=== PATIENT | female | born 1955 | race Caucasian/White ===

== ENCOUNTER 2023-06-19 19:04 | Inpatient (IN) | payer OTHER, SELFPAY ==
--- NOTE | 2023-06-19 | ECG_ITS ---
Test Reason : SVT Blood Pressure : / mmHG Vent. Rate : 090 BPM Atrial Rate : 084 BPM P-R Int : 128 ms QRS Dur : 080 ms QT Int : 406 ms P-R-T Axes : 000 015 073 degrees QTc Int : 496 ms Normal sinus rhythm with PAC's Premature ventricular complexes Prolonged QT Abnormal ECG When compared with ECG of 19-JUN-2023 19:48, rhythm change Vent. rate has decreased BY 44 BPM Referred By: Dk Rogel Electronically Signed By:RAVI CHRISTIAN
--- NOTE | ~2023-06-19 | XR_ITS ---
XR/XR chest 1V IMPRESSION: No evidence of acute disease. EXAMINATION: PORTABLE CHEST 1 VIEW CLINICAL INFORMATION: cough, subjective fevers. COMPARISON: 09/15/2022 CT scan. TECHNIQUE: Portable frontal view of the chest was obtained. FINDINGS: The lungs are well expanded. No focal infiltrate, effusion, edema, or pneumothorax. Cardiac and mediastinal silhouettes are within normal limits for size. Right reverse total shoulder arthroplasty noted. No acute bony abnormality seen.
[2023-06-19 19:34] VITALS: PULSE 88; RESP 20; TEMP 36.9; O2SAT 96; BMI 21.5
--- NOTE | 2023-06-19 19:34 | ED.GENADULT ---
HPI - General Adult General Chief complaint: Dyspnea Stated complaint: SOB, heart racing Time Seen by Provider: 06/19/23 20:13 History of Present Illness HPI narrative: The patient is a 68-year-old woman ED who reports a history of a tachydysrhythmia syndrome. She says she takes diltiazem. Her primary lamination operator is Dr. Deondre Diallo at [facility]. She also has an bottle machine operator, Dr. Akanksha Lima. The patient has not felt well for the last 3 days. She says that she woke up on June 17 feeling unwell in the morning. She says that she had a sore throat and felt run down. She says that she has continued to feel worse and worse each day since then and today was particularly bad. Today she also experienced chest tightness and shortness of breath and she also felt her heart racing in a manner consistent with her previous episodes of SVT. She has had some shortness of breath. She has had cough and nausea and general malaise as well as sore throat, bilateral ear pain, chest tightness, and headache. She came to the emergency room by private vehicle because she felt short of breath. The patient is on fluoxetine, gabapentin, Dyazide, and diltiazem. Related Data Allergies Allergy/AdvReac Type Severity Reaction Status Date / Time codeine [CODEINE] Allergy Unknown NAUSEA & Verified 06/19/23 19:41 VOMITING Codeine Phosphate Allergy Unknown Vomiting Uncoded 06/19/23 19:41 Codeine Sulfate Allergy Unknown vomiting Uncoded 10/26/13 00:00 Review of Systems Review of Systems: Yes all other systems are reviewed and are negative [facility] Social History Social History Advance Directives: No Advance Directives Information Provided: No Physical Exam ED Vital Signs: Vital Signs - 24 hr 06/19/23 19:34 06/19/23 20:03 06/19/23 20:04 Temperature 98.4 F 98.7 F Pulse Rate 88 93 163 H Respiratory Rate 20 26 H Blood Pressure 166/68 H Pulse Oximetry 96 93 89 L Oxygen Delivery Method Room Air Room Air Oxygen Flow Rate 06/19/23 20:20 06/19/23 22:22 Temperature 97.7 F Pulse Rate 91 66 Respiratory Rate 22 H 16 Blood Pressure 131/77 Pulse Oximetry 100 100 Oxygen Delivery Method Nasal Cannula Room Air Nasal Cannula Oxygen Flow Rate 2 2 BMI result Body Mass Index 21.5 Const Other: The patient is awake and alert. Her cheeks are flushed. She looks as if she does not feel very well per HENMT Other: The cheeks are flushed. The pharynx appears normal. Eyes Other: Pupils are round equal, conjunctivae are clear, extraocular movements intact. Neck Other: No adenopathy, no JVD Resp Other: Lungs are clear bilaterally Cardio Other: The patient had an irregular heart rate. She seemed to switch between rhythms. Sometime she had what sounded like a very normal rhythm. Sometime she had a very tachy rhythm. No murmur. GI Other: Abdomen is soft and nontender. Skin Other: Cheeks are flushed. Neuro Other: The patient is awake but seems very tired and fatigued. The voice is very raspy. She does not seem to have any focal neurological deficit but seems quite worn out. Extrem Other: No calf swelling or tenderness. No asymmetry. Course Course Course Narrative: This is a rapid medical exam: Additional HPI, ROS, PE not included below will be deferred to primary provider. Patient is a 68-year-old female with history of SVT presenting to the ED with complaint of shortness of breath, palpitations, nonproductive cough for the past 3 days. Reports grandchildren are sick with similar symptoms. Also complains of sore throat and bilateral ear pain. HR 97 in triage. Plan: viral swabs, strep swab, cxr, ekg Medications Administered Discontinued Medications Generic Name Dose Route Start Last Admin Trade Name Freq PRN Reason Stop Dose Admin Acetaminophen 975 mg 06/19/23 20:44 06/19/23 21:29 Acetaminophen 325 Mg Tablet PO 06/19/23 20:45 975 mg ONCE ONE Administration Diltiazem HCl 15 mg 06/19/23 20:16 06/19/23 20:25 Diltiazem Hcl 50 Mg/10 Ml Vial IVPUSH 06/19/23 20:17 15 mg STAT STA Administration Sodium Chloride 1,000 mls @ 999 mls/hr 06/19/23 20:30 06/19/23 21:48 Ns IV 06/19/23 21:30 Infused .Q1H1M JACLYN Infusion Potassium Chloride/Sodium Chloride 40 meq in 1,000 mls @ 250 mls/hr 06/19/23 20:45 06/19/23 21:56 Kcl 40 Meq In 0.9 % Sodium Chl IV 06/20/23 00:44 250 mls/hr .Q4H JACLYN Administration Ketorolac Tromethamine 10 mg 06/19/23 20:44 06/19/23 21:15 Ketorolac Tromethamine 15 Mg/Ml Vial IVPUSH 06/19/23 20:45 10 mg ONCE ONE Administration Potassium Chloride 40 meq 06/19/23 20:46 06/19/23 21:30 Potassium Chloride Er 10 Meq Tablet.Er PO 06/19/23 20:47 40 meq ONCE ONE Administration Medical Decision Making Medical Decision Making MDM Narrative: Patient is a 68-year-old woman with a history of SVT who is on diltiazem. She started to feel unwell 2 days ago on the morning of June 17. She has been feeling progressively more ill since then. She has severe sense of sore throat and difficulty swallowing. She has chest pressure and shortness of breath. She has been aware of her heart beating very fast consistent with previous episodes of SVT. She feels completely miserable. In the emergency room the patient had very labile heart rates. She seemed to vary between a sinus rhythm in the 80s or 90s and a narrow complex tachycardia up to 160 or 170. She was going in and out of this tachydysrhythmia. Patient was given daily times am and IV fluids. She is swab for viruses and has tested positive for influenza A. Other labs include a potassium quite low at 2.7 and the sodium at 127. She was not hypotensive. Her troponin is negative. ProBNP is normal. She also has a mild transaminitis with an AST of 143 and an ALT of 131. I suspect this is part of her flu syndrome. Given how labile her heart rate has been and had generally ill she seems and given her hypokalemia I think hospitalization is reasonable. Lab Data 06/19/23 20:08 06/19/23 20:08 Labs: Lab Results 06/19/23 06/19/23 Range/Units 20:04 20:08 WBC 7.3 (4.8-10.8) X10*3/uL RBC 4.46 (4.20-5.50) X10*6/uL Hgb 14.1 (12.0-16.0) g/dl Hct 39.9 (37.0-47.0) % MCV 89.5 (80.0-98.0) fL MCH 31.6 (27.0-33.0) pg MCHC 35.3 H (31.0-35.0) g/dl RDW 13.8 (11.0-16.0) % Plt Count 212 (160-400) X10*3/uL MPV 8.5 L (9.4-12.3) fL Immature Gran % (Auto) 0.3 (0.0-0.4) % Neut % (Auto) 61.6 (45-73) % Lymph % (Auto) 29.2 (20-40) % [place] % (Auto) 8.3 (2-11) % Eos % (Auto) 0.3 (0-4) % Baso % (Auto) 0.3 (0-2) % Lymph # (Auto) 2.1 (1.2-4.9) X10*3/uL [place] # (Auto) 0.6 (0.1-1.2) X10*3/uL Eos # (Auto) 0.0 (0.0-0.4) X10*3/uL Baso # (Auto) 0.0 (0.0-0.2) X10*3/uL Abs Immat Gran (auto) 0.02 (0.00-0.03) X10*3/uL Absolute Neuts (auto) 4.5 (2.0-8.3) x10*3/uL Absolute Nucleated RBC 0.000 (0.0-0.012) X10*3/uL Nucleated RBC % (auto) 0.0 (0.0-0.2) /100WBC Sodium 127 L (135-145) mmol/L Potassium 2.7 L (3.3-5.1) mmol/L Chloride 94 L (96-108) mmol/L Carbon Dioxide 19 L (22-29) mmol/L Anion Gap 17 (12-20) BUN 12 (9-16) mg/dL Creatinine 0.77 (0.5-1.4) mg/dL Estim Creat Clear Calc 59.5 Estimated GFR > 60 Random Glucose 106 (60-115) mg/dL Calcium 9.4 (8.4-10.2) mg/dL Total Bilirubin 0.5 (0.0-1.0) mg/dL AST 143 H (5-31) U/L ALT 131 H (0-31) U/L Alkaline Phosphatase 62 (39-117) U/L Troponin I High Sens 7.7 (<3.5-17.0) ng/L C-Reactive Protein 3.29 H (< or = 0.50) mg/dL B-Natriuretic Peptide 75 (<100) pg/mL Total Protein 8.3 H (6.5-8.0) g/dL Albumin 4.4 (3.5-5.0) g/dL Influenza Type A (PCR) POSITIVE A (Negative) Influenza Type B (PCR) NEGATIVE (Negative) RSV RNA Qual (PCR) NEGATIVE (Negative) SARS-CoV-2 RNA (RT-PCR) NEGATIVE (Negative) S. pyogenes GrpA EDMOND Negative (Negative) Independent Interpretation I performed an independent interpretation of an: EKG Interpretation: EKG at 19:48 shows to rhythms in the space of the EKG. One rhythm is a sinus rhythm at about 90 beats per minute. There is a 2nd section which has a narrow complex tachycardia which could be atrial fibrillation or SVT. Discharge Plan Discharge Clinical Impression: Influenza A, Tachyarrhythmia, Acute hypokalemia Patient Disposition: Admitted As Inpatient
--- NOTE | 2023-06-19 19:36 | ECG_ITS ---
Test Reason : SOB Blood Pressure : / mmHG Vent. Rate : 134 BPM Atrial Rate : 000 BPM P-R Int : 000 ms QRS Dur : 078 ms QT Int : 304 ms P-R-T Axes : 000 008 104 degrees QTc Int : 453 ms Normal sinus rhythm in first part of EKG Suspect atrial tachycardia in second part of EKG. Less likely flutter. Minimal voltage criteria for LVH, may be normal variant ( [place] product ) Nonspecific ST and T wave abnormality Abnormal ECG When compared with ECG of 14-OCT-2013 19:59, Rhtyhm change Vent. rate has increased BY 56 BPM Referred By: Romina Ness Electronically Signed By:RAVI CHRISTIAN
[2023-06-19 20:03] VITALS: BP 166/68; PULSE 93; RESP 26; TEMP 37.1; O2SAT 93
[2023-06-19 20:04] VITALS: PULSE 163; O2SAT 89
[2023-06-19 20:12] LABS: MANUAL DIFF FLAG NO
[2023-06-19 20:13] LABS: Basophils Percent Auto 0.3 % (0-2); Eosinophils Percent Auto 0.3 % (0-4); Hematocrit 39.9 % (37.0-47.0); Hemoglobin 14.1 g/dl (12.0-16.0); Imm Gran Abs Auto 0.02 X10*3/uL (0.00-0.03); Imm Gran Pct Auto 0.3 % (0.0-0.4); Lymphocytes Absolute Auto 2.1 X10*3/uL (1.2-4.9); Lymphocytes Percent Auto 29.2 % (20-40); Mean Corpuscular HGB Conc 35.3 g/dl (31.0-35.0); Mean Corpuscular Hemoglobin 31.6 pg (27.0-33.0); Mean Corpuscular Volume 89.5 fL (80.0-98.0); Mean Platelet Volume 8.5 fL (9.4-12.3); Monocytes Absolute Auto 0.6 X10*3/uL (0.1-1.2); Monocytes Percent Auto 8.3 % (2-11); Neutrophils Absolute Auto 4.5 x10*3/uL (2.0-8.3); Neutrophils Percent Auto 61.6 % (45-73); Platelet Count 212 X10*3/uL (160-400); Red Blood Count 4.46 X10*6/uL (4.20-5.50); Red Cell Distribution Width 13.8 % (11.0-16.0); White Blood Count 7.3 X10*3/uL (4.8-10.8)
[2023-06-19 20:18] LABS: IDNOW Serial# 6674DD1D; Strep A Nucleic Acid Negative (Negative)
[2023-06-19 20:20] VITALS: PULSE 91; RESP 22; O2SAT 100
[2023-06-19] MEDS: dilTIAZem HCL 50 MG/10 ML VIAL 15 MG IVPUSH (20:25)
[2023-06-19] MEDS: 0.9 % Sodium Chloride 1,000 ML 999 ML IV (20:25)
[2023-06-19 20:38] LABS: Alanine Aminotransferase 131 U/L (0-31); Albumin Level 4.4 g/dL (3.5-5.0); Alkaline Phosphatase 62 U/L (39-117); Anion Gap 17 (12-20); Aspartate Amino Transferase 143 U/L (5-31); Bilirubin Total 0.5 mg/dL (0.0-1.0); Blood Urea Nitrogen 12 mg/dL (9-16); Calcium 9.4 mg/dL (8.4-10.2); Carbon Dioxide 19 mmol/L (22-29); Chloride 94 mmol/L (96-108); Creatinine Clr Calc Pharmacy 59.5; Estimated Glomerular Filt Rate > 60; Glucose Random 106 mg/dL (60-115); Potassium 2.7 mmol/L (3.3-5.1); Sodium 127 mmol/L (135-145); Total Protein 8.3 g/dL (6.5-8.0); Troponin-I High Sensitivity 7.7 ng/L (<3.5-17.0)
[2023-06-19 20:40] LABS: C Reactive Protein 3.29 mg/dL (< or = 0.50)
[2023-06-19 20:47] LABS: Influenza A PCR POSITIVE (Negative); Influenza B PCR NEGATIVE (Negative); Resp Syncy Virus RNA Qual PCR NEGATIVE (Negative); SARS COV2 PCR INHOUSE NEGATIVE (Negative)
[2023-06-19] MEDS: Ketorolac Tromethamine 15 MG/ML VIAL 10 MG IVPUSH (21:15)
[2023-06-19] MEDS: Acetaminophen 325 MG TABLET 975 MG PO (21:29)
[2023-06-19] MEDS: Potassium Chloride ER 10 MEQ TABLET.ER 40 MEQ PO (21:30)
[2023-06-19] MEDS: KCl 40 mEq in 0.9 % Sodium Chl 40 MEQ/1,000 ML IV.SOLN 250 MEQ IV (21:56)
[2023-06-19 22:06] LABS: B Type Natriuretic Peptide 75 pg/mL (<100)
[2023-06-19 22:22] VITALS: BP 131/77; PULSE 66; RESP 16; TEMP 36.5; O2SAT 100
--- NOTE | 2023-06-19 23:56 | P.HPHOSP_ITS ---
History of Present Illness Date of Service: 06/19/23 Attending physician on admission: Keyur Kuhn Chief Complaint: Shortness of breath x 3 days Patient is a 68 year old white female with PMH of tachydysrhythmia syndrome (on Cardizem) presents to the emergency room complaining of feeling unwell with chest pain, light headedness, shortness of breath, nausea, headaches, general malaise, throat and ear pain for about 4 days now. She admits to exposure to her sick grandchildren over the holiday. She has chronic diarrhea at baseline (due to underlying collagenous colitis) which is unchanged. She also states that she has not slept in 3 days since she felt unwell. Initial work up done in the emergency room was notable for a positive Influenza A PCR test, hypokalemia, hypomagnesemia and elevated liver enzymes (AST 143 and ALT 131). She was also found to be in atrial fibrillation with RVR at 134 bpm on EKG. She has no history of atrial fibrillations. During her ER stay, she had She is oxygenating well at 100% on room air and her big complain at this time is that she feels very fatigued. Review of Systems 2 Review of Systems: Yes all other systems are reviewed and are negative [facility] Medical History (Updated 06/20/23 @ 07:41 by Keyur Kuhn MD) Collagenous colitis Tachyarrhythmia Functional capacity: independent ambulation Patient : No Pertinent family history: Reviewed with the patient and not pertinent to current admission. Social History Household Members: None Housing: House Do you presently have visiting nurse or other home services: No Patient Tobacco Use Status: Never used Tobacco Smoked in Last 30 Days: No e-Cigarette/Vaping Use: Never Used Patient Interested in Nicotine Replacement: No Patient Given Instructions on How to Stop Smoking: No Second Hand Smoke Exposure: No Use of substances other than those prescribed or required for medical reasons: No Currently Displaying Signs/Symptoms of Drug Intoxication Withdrawal: No Any prior treatment program specific to substance use: No Have you been hit, kicked, punched, or otherwise hurt by someone within the past year? If so, by whom?: No Do you feel safe in your current relationship?: No Current Relationship Is there a partner from a previous relationship who is making you feel unsafe now?: No Are you made to feel afraid or neglected: Yes Advance Directives: No Advance Directives Information Provided: No Do you have thoughts of harming others: None Do you have a plan to hurt others: No Plan Recently lost weight without trying: No Eating poorly because of decreased appetite: No Nutrition Risks: No Nutritional Risk Patient : No : No Poor oral hygiene: No Meds Allergies Allergy/AdvReac Type Severity Reaction Status Date / Time codeine [CODEINE] Allergy Unknown NAUSEA & Verified 06/19/23 19:41 VOMITING Codeine Phosphate Allergy Unknown Vomiting Uncoded 06/19/23 19:41 Codeine Sulfate Allergy Unknown vomiting Uncoded 10/26/13 00:00 Home Medications Medication Instructions Recorded Confirmed Last Taken Type bimatoprost 0.03 % drops with 1 drp topical BEDTIME 06/20/23 Unknown History applicator, eyelash base budesonide 3 mg 9 mg PO QAM 06/20/23 Unknown History capsule,delayed,extended release diltiazem HCl 120 mg 120 mg PO DAILY 06/20/23 06/20/23 Unknown History capsule,extended release 24 hr diphenoxylate-atropine 2.5 2 tab PO QID 06/20/23 Unknown History mg-0.025 mg tablet fluoxetine 20 mg capsule 20 mg PO DAILY 06/20/23 06/20/23 Unknown History gabapentin 300 mg capsule 300 mg PO TID 06/20/23 Unknown History hyoscyamine sulfate 0.125 mg tablet 0.125 mg PO 5XD 06/20/23 06/20/23 Unknown History cekjuu-tbmvlhmn-aczleig 1 cap PO DAILY PRN SNACKS 06/20/23 Unknown History 24,000-76,000-120,000 unit capsule,delayed rel (Creon) zscdsm-wxwkdkhl-lcghenz 2 cap PO TID 06/20/23 Unknown History 24,000-76,000-120,000 unit capsule,delayed rel (Creon) kcgdvo-evguefse-thtqfkm 2 cap PO QID 06/20/23 Unknown History 36,000-114,000-180,000 unit capsule,delay rel (Creon) risedronate 150 mg tablet 150 mg PO QMONTH 06/20/23 06/20/23 Unknown History triamterene 37.5 1 cap PO DAILY 06/20/23 Unknown History mg-hydrochlorothiazide 25 mg capsule Physical Exam 2 Vital Signs and Narrative: Vital Signs: Last Vital Signs Temp 97.7 F 06/19/23 22:22 Pulse 66 06/19/23 22:22 Resp 16 06/19/23 22:22 BP 131/77 06/19/23 22:22 Pulse Ox 100 06/19/23 22:22 O2 Del Method Room Air, Nasal C annula 06/19/23 22:22 O2 Flow Rate 2 06/19/23 22:22 BMI result Body Mass Index 21.5 General: Well nourished but ill appearing female in bed. Awake, alert and oriented x 4. No apparent distress Eyes: No pallor or jaundice. PERRLA, EOMI HENT: Dry oral mucus membranes. No oropharyngeal lesions. Neck: Supple. No cervical adenopathy. No JVD Cardiovascular: Regular rate and rhythm. Normal heart sounds. No murmurs, rubs or gallops. No JVD. No peripheral edema. Respiratory: Normal respiratory effort with no accessory muscle use. CTAB. Gastrointestinal: Abdomen is soft, non-tender, non-distended. NABS. No hepatosplenomegaly Extremities: No edema. No calf tenderness. Good peripheral pulses Skin: Warm/Dry. No rashes. No mottling. Capillary refill is < 2 seconds Neurological: AAOx4. Intact speech & cognition. Normal gait & balance. CN II - XII grossly intact but not individually tested. No motor or sensory deficits Hematologic: No bleeding. No ecchymosis. No swollen or tender lymph nodes. Psychiatric: Cooperative. Appropriate mood and affect. Results Labs 06/20/23 04:56 06/20/23 04:56 Labs: Laboratory Results - last 24 hr 06/19/23 06/19/23 20:04 20:08 MCV 89.5 MCH 31.6 MCHC 35.3 H RDW 13.8 Plt Count 212 MPV 8.5 L Immature Gran % (Auto) 0.3 Neut % (Auto) 61.6 Lymph % (Auto) 29.2 [place] % (Auto) 8.3 Eos % (Auto) 0.3 Baso % (Auto) 0.3 Lymph # (Auto) 2.1 [place] # (Auto) 0.6 Eos # (Auto) 0.0 Baso # (Auto) 0.0 Abs Immat Gran (auto) 0.02 Absolute Neuts (auto) 4.5 Absolute Nucleated RBC 0.000 Nucleated RBC % (auto) 0.0 Anion Gap 17 Estim Creat Clear Calc 59.5 Estimated GFR > 60 Random Glucose 106 Calcium 9.4 Total Bilirubin 0.5 AST 143 H ALT 131 H Alkaline Phosphatase 62 C-Reactive Protein 3.29 H B-Natriuretic Peptide 75 Total Protein 8.3 H Albumin 4.4 Influenza Type A (PCR) POSITIVE A Influenza Type B (PCR) NEGATIVE RSV RNA Qual (PCR) NEGATIVE SARS-CoV-2 RNA (RT-PCR) NEGATIVE S. pyogenes GrpA EDMOND Negative ECG ECG interpretation date: 06/20/23 ECG interpretation time: 07:38 Prior ECG tracings: available for review Interpretation: 19:48 => Atrial fibrillation at 134 bpm with non-specific St & T-wave abnormality. 20:33 => NSR at 90 bpm. No acute ischemci changes Imaging Radiologist's Impressions: Impressions Chest X-Ray 06/19/23 20:29 IMPRESSION: No evidence of acute disease. Assessment and Plan (1) Influenza A: Status: Acute (2) Acute hypokalemia: Status: Acute (3) Atrial fibrillation with rapid ventricular response: Status: Acute (4) Hypomagnesemia: Status: Acute (5) Elevated liver enzymes: Status: Acute (6) Asthenia: Status: Acute Plan 68 year old white female with PMH of tachydysrhythmia syndrome here with: 1. Influenza A - start on Tamiflu 2. Atrial fibrillation with RVR - new and transient - has underlying h/o SVT for which she is on Diltiazem - scores 2 (age and sex) so may need anticoagulation - get 2 D echo 3. Hypokalemia and hypomagnesemia - replace and recheck in AM 4. Elevated liver enzymes - AST is 143 and ALT 131 - concern for Influenza hepatotoxicity (rare) - consider Hepatitis screen 5. Asthenia - 2/2 Influenza infection - may need STR if she remains week DVT: SC Lovenox CODE STATUS: Full code Admission for at least 2 midnights for management of Influenza A and to monitor her liver enzymes. She may need STR if she remains week. Total time managing care of this patient today: 75 minutes. Quality Stroke Does the patient have a stroke diagnosis?: No VTE Prior VTE?: No VTE Risk Level:: Medical - moderate - high VTE Device Contraindication: Treatment Not Indicated VTE Drug Contraindication: N/A - Med Ordered
[2023-06-20 00:13] VITALS: BP 118/50; PULSE 63; RESP 14; TEMP 37.4; O2SAT 95
[2023-06-20] MEDS: Loperamide HCl 2 MG CAPSULE 4 MG PO (02:46)
[2023-06-20] MEDS: Oseltamivir Phosphate 75 MG CAPSULE PO ×3 (02:46→20:37)
[2023-06-20 05:21] LABS: Hemoglobin 11.4 g/dl (12.0-16.0); Mean Corpuscular HGB Conc 34.5 g/dl (31.0-35.0); Mean Corpuscular Volume 92.7 fL (80.0-98.0); Mean Platelet Volume 8.8 fL (9.4-12.3); Platelet Count 184 X10*3/uL (160-400); Red Blood Count 3.56 X10*6/uL (4.20-5.50); Red Cell Distribution Width 14.1 % (11.0-16.0); White Blood Count 5.2 X10*3/uL (4.8-10.8)
[2023-06-20 05:43] LABS: Anion Gap 10 (12-20); Blood Urea Nitrogen 12 mg/dL (9-16); Calcium 7.7 mg/dL (8.4-10.2); Carbon Dioxide 21 mmol/L (22-29); Chloride 107 mmol/L (96-108); Creatinine Clr Calc Pharmacy 69.4; Estimated Glomerular Filt Rate > 60; Glucose Random 88 mg/dL (60-115); Magnesium 2.1 mg/dL (1.6-2.6); Potassium 4.2 mmol/L (3.3-5.1); Sodium 134 mmol/L (135-145)
[2023-06-20 05:48] VITALS: BP 133/60; PULSE 50; RESP 16; TEMP 36.4; O2SAT 98
[2023-06-20 05:49] VITALS: BMI 23.4
[2023-06-20 06:01] LABS: Thyroid Stimulating Hormone 4.74 uIU/mL (0.32-4.0)
[2023-06-20 07:44] VITALS: BP 135/65; PULSE 50; RESP 18; TEMP 36.6; O2SAT 95
--- NOTE | 2023-06-20 09:02 | PHA.MEDREC ---
Pharmacy Consult ? Medication Reconciliation Pharmacy has completed the medication reconciliation Pt reported all meds. No longer taking budesonide, lomotil, hyoscyamine. Patient currently on 36k Creon.
--- NOTE | 2023-06-20 09:24 | HO.PM.IMPN ---
Subjective Subjective Date of Service: 06/20/23 Interval History: seen and evaluated this morning feels weak and has no energy denies any fever but reports chills having diarrhea Sodium and potassium corrected Review of Systems Review of Systems: Yes all other systems are reviewed and are negative Physical Exam Vital Signs: Vital Signs: Last Vital Signs Temp 97.9 F 06/20/23 07:44 Pulse 50 06/20/23 07:44 Resp 18 06/20/23 07:44 BP 135/65 06/20/23 07:44 Pulse Ox 95 06/20/23 07:44 O2 Del Method Room Air 06/20/23 07:44 O2 Flow Rate 2 06/19/23 22:22 BMI result Body Mass Index 23.4 Const: Other: Constitutional : Awake, interactive, frail, not in distress Neck : Normal inspection, Supple Cardiovascular : RRR, no JVP, no lower extremity edema Respiratory : good bilateral air entry, no crackles, wheezes or rhonchi Gastrointestinal: soft, lax, Normal bowel sounds, Non tender Skin : Warm, Dry Neurological : Alert & oriented x3, No focal deficit Objective Data Active Medications Acetaminophen (Acetaminophen 325 Mg Tablet) 650 mg PO Q6H PRN PRN Reason: Pain, Mild (Pain Scale 1-3) Al Hydroxide/Mg Hydroxide (Magnesium Hydrox/Alum Hydrox 30 Ml Oral.Susp) 30 ml PO Q4H PRN PRN Reason: Heartburn/Nausea Diltiazem HCl (Diltiazem Hcl Cd 120 Mg Cap.Er.Deg) 120 mg PO DAILY [facility]; Protocol Docusate Sodium (Docusate Sodium 100 Mg Capsule) 100 mg PO BID [facility] Enoxaparin Sodium (Enoxaparin Sodium 40 Mg/0.4 Ml Syringe) 40 mg SUBCUT BEDTIME [facility] Last Admin: 06/20/23 02:47 Dose: Not Given Documented By: MIAH Non-Admin Reason: Patient Refused Fluoxetine HCl (Fluoxetine Hcl 20 Mg Capsule) 20 mg PO DAILY [facility] Gabapentin (Gabapentin 100 Mg Capsule) 100 mg PO TID [facility] Lactated Ringer's (Lr) 1,000 mls @ 80 mls/hr IVCONT .[id number] [facility] Loperamide HCl (Loperamide Hcl 2 Mg Capsule) 2 mg PO Q4H PRN PRN Reason: Diarrhea Melatonin (Melatonin 3 Mg Tablet) 6 mg PO BEDTIME PRN PRN Reason: Insomnia Multivitamins/Vitamin C (Multivitamin Tablet) 1 tab PO DAILY JACLYN Non-Formulary Medication (Dnhxlk-Hgqrqswx-Vvapald [Creon]) 2 cap PO TID JACLYN Non-Formulary Medication (Qwkiwl-Oyfmkhpk-Rsasgpt [Creon]) 1 cap PO DAILY PRN PRN Reason: snacks Ondansetron HCl (Ondansetron Hcl 4 Mg/2 Ml Vial) 4 mg IVPUSH Q8H PRN PRN Reason: Nausea and Vomiting Oseltamivir Phosphate (Oseltamivir Phosphate 75 Mg Capsule) 75 mg PO Q12H [facility] Stop: 06/24/23 21:01 Sodium Chloride (0.9 % Sodium Chloride Flush 3 Ml Syringe) 3 ml IVFLUSH QSHIFT [facility] Last Admin: 06/20/23 02:46 Dose: Not Given Documented By: MIAH Non-Admin Reason: IV Running Labs 06/20/23 04:56 06/20/23 04:56 Labs: Laboratory Results - last 24 hr 06/19/23 06/19/23 06/20/23 20:04 20:08 04:56 MCV 89.5 92.7 MCH 31.6 32.0 MCHC 35.3 H 34.5 RDW 13.8 14.1 Plt Count 212 184 MPV 8.5 L 8.8 L Immature Gran % (Auto) 0.3 Neut % (Auto) 61.6 Lymph % (Auto) 29.2 [place] % (Auto) 8.3 Eos % (Auto) 0.3 Baso % (Auto) 0.3 Lymph # (Auto) 2.1 [place] # (Auto) 0.6 Eos # (Auto) 0.0 Baso # (Auto) 0.0 Abs Immat Gran (auto) 0.02 Absolute Neuts (auto) 4.5 Absolute Nucleated RBC 0.000 0.000 Nucleated RBC % (auto) 0.0 0.0 Hold Purple Top Anion Gap 17 10 L Estim Creat Clear Calc 59.5 69.4 Estimated GFR > 60 > 60 Random Glucose 106 88 Calcium 9.4 7.7 L D Magnesium 2.1 Total Bilirubin 0.5 AST 143 H ALT 131 H Alkaline Phosphatase 62 C-Reactive Protein 3.29 H B-Natriuretic Peptide 75 Total Protein 8.3 H Albumin 4.4 TSH 4.74 H Influenza Type A (PCR) POSITIVE A Influenza Type B (PCR) NEGATIVE RSV RNA Qual (PCR) NEGATIVE SARS-CoV-2 RNA (RT-PCR) NEGATIVE S. pyogenes GrpA EDMOND Negative 06/20/23 08:07 MCV MCH MCHC RDW Plt Count MPV Immature Gran % (Auto) Neut % (Auto) Lymph % (Auto) [place] % (Auto) Eos % (Auto) Baso % (Auto) Lymph # (Auto) [place] # (Auto) Eos # (Auto) Baso # (Auto) Abs Immat Gran (auto) Absolute Neuts (auto) Absolute Nucleated RBC Nucleated RBC % (auto) Hold Purple Top SEE NOTE Anion Gap Estim Creat Clear Calc Estimated GFR Random Glucose Calcium Magnesium Total Bilirubin AST ALT Alkaline Phosphatase C-Reactive Protein B-Natriuretic Peptide Total Protein Albumin TSH Influenza Type A (PCR) Influenza Type B (PCR) RSV RNA Qual (PCR) SARS-CoV-2 RNA (RT-PCR) S. pyogenes GrpA EDMOND Assessment and Plan (1) Asthenia: Status: Acute (2) Elevated liver enzymes: Status: Acute (3) Acute hypokalemia: Status: Acute (4) Hypomagnesemia: Status: Acute (5) Influenza A: Status: Acute Plan 68 year old white female with PMH of tachydysrhythmia syndrome here with: 1. Influenza A Continue Tamiflu supportive IVF and cough meds Tylenol and Ibuprofen 2. Tachycardia EKG showing possible Afib rvr vs SVT with extra beats (her known medical problem) Keep on Tele to confirm any suspecion of Afib on Diltiazem Hold on anticoagulation Get 2 D echo 3. Hypokalemia and hypomagnesemia Replaced and Corrected 4. Elevated liver enzymes AST is 143 and ALT 131 concern for Influenza hepatotoxicity (rare) Pending Hepatitis screen 5. Asthenia 2/2 Influenza infection PT eval may need STR if she remains weak DVT: SC Lovenox CODE STATUS: Full code Needs inpateint overnight stay for management of Influenza A and to monitor her liver enzymes. She may need STR placement Quality Stroke Does the patient have a stroke diagnosis?: No VTE Prior VTE?: No VTE Risk Level:: Medical - moderate - high VTE Device Contraindication: Treatment Not Indicated VTE Drug Contraindication: N/A - Med Ordered
[2023-06-20] MEDS: FLUoxetine HCl 20 MG CAPSULE PO (10:49)
[2023-06-20] MEDS: dilTIAZem HCL CD 120 MG CAP.ER.DEG PO (10:49)
[2023-06-20] MEDS: Gabapentin 100 MG CAPSULE PO ×3 (10:49→20:38)
[2023-06-20] MEDS: Acetaminophen 325 MG TABLET 650 MG PO ×3 (10:50→20:38)
[2023-06-20] MEDS: 0.9 % Sodium Chloride Flush 3 ML SYRINGE IVFLUSH ×2 (10:52→16:48)
[2023-06-20] MEDS: Lactated Ringers 1,000 ML 80 ML IVCONT ×2 (11:24→20:43)
[2023-06-20] MEDS: Ibuprofen 200 MG TABLET PO ×2 (12:02→16:47)
[2023-06-20] MEDS: Lipase/Prot/Amylase 24/76/120K 1 CAP CAPSULE.DR 3 CAP PO ×2 (12:02→16:48)
[2023-06-20 15:59] VITALS: BP 119/66; PULSE 54; RESP 18; TEMP 36.6; O2SAT 97
--- NOTE | 2023-06-20 16:10 | MHC.CM.PN ---
CM ATTEMPTED TO SEE PT WHO WAS SLEEPING SOUNDLY AND DID NOT WAKE TO NAME CM WILL REVISIT
[2023-06-20 19:24] VITALS: BP 128/64; PULSE 51; RESP 18; TEMP 36.6; O2SAT 97
[2023-06-20] MEDS: Enoxaparin Sodium 40 MG/0.4 ML SYRINGE SUBCUT (20:35)
[2023-06-20] MEDS: Docusate Sodium 100 MG CAPSULE PO (20:37)
[2023-06-21 04:00] VITALS: BP 135/62; PULSE 52; RESP 18; TEMP 36.6; O2SAT 96
[2023-06-21 05:58] LABS: Anion Gap 12 (12-20); Blood Urea Nitrogen 8 mg/dL (9-16); Calcium 8.1 mg/dL (8.4-10.2); Carbon Dioxide 21 mmol/L (22-29); Chloride 107 mmol/L (96-108); Creatinine Clr Calc Pharmacy 79.1; Estimated Glomerular Filt Rate > 60; Glucose Random 73 mg/dL (60-115); Potassium 3.5 mmol/L (3.3-5.1); Sodium 136 mmol/L (135-145)
[2023-06-21 06:01] LABS: Alanine Aminotransferase 78 U/L (0-31); Albumin Level 3.5 g/dL (3.5-5.0); Alkaline Phosphatase 48 U/L (39-117); Aspartate Amino Transferase 64 U/L (5-31); Bilirubin Direct 0.1 mg/dL (0.0-0.5); Bilirubin Total 0.3 mg/dL (0.0-1.0); Total Protein 6.6 g/dL (6.5-8.0)
[2023-06-21 07:25] VITALS: BP 166/73; PULSE 66; RESP 18; TEMP 36.7; O2SAT 98
[2023-06-21] MEDS: FLUoxetine HCl 20 MG CAPSULE PO (07:43)
[2023-06-21] MEDS: Oseltamivir Phosphate 75 MG CAPSULE PO (07:43)
[2023-06-21] MEDS: Ibuprofen 200 MG TABLET PO ×2 (07:43→11:46)
[2023-06-21] MEDS: Lipase/Prot/Amylase 24/76/120K 1 CAP CAPSULE.DR 3 CAP PO ×2 (07:44→11:46)
[2023-06-21] MEDS: Gabapentin 100 MG CAPSULE PO (07:44)
[2023-06-21] MEDS: Acetaminophen 325 MG TABLET 650 MG PO (07:44)
[2023-06-21] MEDS: dilTIAZem HCL CD 120 MG CAP.ER.DEG PO (07:44)
[2023-06-21] MEDS: Multivitamin TABLET 1 TAB PO (08:02)
--- NOTE | 2023-06-21 10:03 | PM.DS ---
DS: Providers Provider Date of Service: 06/21/23 Date of admission: 06/19/23 23:57 Primary care physician: Ishmael Madrigal MD DS: Diagnosis Discharge Diagnosis (1) Asthenia: Status: Acute (2) Elevated liver enzymes: Status: Acute (3) Acute hypokalemia: Status: Acute (4) Hypomagnesemia: Status: Acute (5) Influenza A: Status: Acute DS: Summary Hospital Course Hospital Course: Admission note HPI Patient is a 68 year old white female with PMH of tachydysrhythmia syndrome (on Cardizem) presents to the emergency room complaining of feeling unwell with chest pain, light headedness, shortness of breath, nausea, headaches, general malaise, throat and ear pain for about 4 days now. She admits to exposure to her sick grandchildren over the holiday. She has chronic diarrhea at baseline (due to underlying collagenous colitis) which is unchanged. She also states that she has not slept in 3 days since she felt unwell. Initial work up done in the emergency room was notable for a positive Influenza A PCR test, hypokalemia, hypomagnesemia and elevated liver enzymes (AST 143 and ALT 131). She was also found to be in atrial fibrillation with RVR at 134 bpm on EKG. She has no history of atrial fibrillations. During her ER stay, she had She is oxygenating well at 100% on room air and her big complain at this time is that she feels very fatigued. Hospital course 1. Influenza A with associated Asthenia Started on Tamiflu and treated with supportive IVF and cough meds along with Tylenol and Ibuprofen with good response. she participated with PT who recommended no need for therapy as she improved and was steady on her feet 2. Tachycardia EKG showing possible Afib rvr vs SVT with extra beats (her known medical problem). She was kept on Tele with no evidence of Afib. Controlled with Diltiazem. 3. Hypokalemia and hypomagnesemia Replaced and Corrected 4. Elevated liver enzymes AST is 143 and ALT 131 on presentation. Trended down during hospital stay. likely related to viral illness. Pending Hepatitis screen at time of discharge. Continue Tamiflu as prescribed Flonase for congestion Tylenol and Advil as needed keep yourself hydrated Time Attestation Discharge coordination time: Greater than 30 minutes Quality: Safe Use of Opioids Does Pt have an Active Cancer Diagnosis on the Problem List?: No Quality: Stroke Does the patient have a stroke diagnosis?: No Physical Exam Vital Signs: Vital Signs: Last Vital Signs Temp 98.1 F 06/21/23 07:25 Pulse 66 06/21/23 07:25 Resp 18 06/21/23 07:25 BP 166/73 H 06/21/23 07:25 Pulse Ox 98 06/21/23 07:25 O2 Del Method Room Air 06/21/23 07:25 O2 Flow Rate 2 06/19/23 22:22 BMI result Body Mass Index 23.4 Const: Other: Constitutional : Awake, interactive, frail, not in distress Neck : Normal inspection, Supple Cardiovascular : RRR, no JVP, no lower extremity edema Respiratory : good bilateral air entry, no crackles, wheezes or rhonchi Gastrointestinal: soft, lax, Normal bowel sounds, Non tender Skin : Warm, Dry Neurological : Alert & oriented x3, No focal deficit DS: Data Data Completed and Pending Labs on day of discharge: Laboratory Results - last 24 hr 06/21/23 05:07 Hold Purple Top SEE NOTE Sodium 136 Potassium 3.5 Chloride 107 Carbon Dioxide 21 L Anion Gap 12 BUN 8 L Creatinine 0.58 Estim Creat Clear Calc 79.1 Estimated GFR > 60 Random Glucose 73 Calcium 8.1 L Total Bilirubin 0.3 Direct Bilirubin 0.1 AST 64 H ALT 78 H Alkaline Phosphatase 48 Total Protein 6.6 Albumin 3.5 Imaging Chest x-ray: Radiologist's impression: ITS Impressions Chest X-Ray 06/19/23 20:29 IMPRESSION: No evidence of acute disease. Discharge Plan Discharge Anticipated Discharge Date/Time: 06/21/23 09:55 Patient Disposition: Home, Self-Care Discharge Diagnosis: Influenza A Electrolytes imbalance Referrals: Ishmael Madrigal MD [Primary Care Provider] - 1 Week Discharge Medications: New benzonatate 100 mg Capsule 100 mg PO TID PRN (Reason: Cough) Qty: 20 0RF oseltamivir [Tamiflu] 75 mg Capsule 75 mg PO Q12H Qty: 6 0RF fluticasone propionate 50 mcg/actuation [place],Suspension 1 spray intranasal BID Qty: 16 0RF Continued triamterene-hydrochlorothiazid 37.5-25 mg capsule 1 cap PO DAILY gabapentin 300 mg capsule 300 mg PO TID bimatoprost 0.03 % drops with applicator 1 drp TOPICAL BEDTIME Rx Instructions: APPLY TO AFFECTED UPPER EYELIDS Creon 36,000-114,000- 180,000 unit capsule,delayed release(DR/EC) 2 cap PO TID diltiazem HCl 120 mg capsule,extended release 24hr 120 mg PO DAILY fluoxetine 20 mg capsule 20 mg PO DAILY risedronate 150 mg tablet 150 mg PO QMONTH multivitamin with iron Tablet 1 tab PO DAILY Creon 36,000-114,000- 180,000 unit capsule,delayed release(DR/EC) 1 cap PO DAILY PRN (Reason: snacks) Discharge Orders: Discharge Order (Routine); Ordered 06/21/23 Ordered By: Nima Parsons Diet: Advance to usual diet Activity on Discharge: As tolerated Stand Alone Forms: Patient Portal Discharge page Care Plan Goals: Read below Health Concerns: Read below Plan of Treatment: Read below Assessment: You were admitted to the hospital for treatment of Influenza A. responded fairly to IV fluids, pain medications and Tamiflu. Continue Tamiflu as prescribed Flonase for congestion Tylenol and Advil as needed keep yourself hydrated
[2023-06-21] MEDS: Butalb/Acetamin/Caff 50/325/40 TABLET 1 TAB PO (10:07)
[2023-06-21] MEDS: Fluticasone Propionate Nasal 16 GM SPRAY 1 SPRAY NOSTRIL-B (11:15)
--- NOTE | 2023-06-21 11:32 | MHC.CM.PN ---
PT REPORTS SHE LIVES ALONE AND IS INDEPENDENT WITH CARE SHE HAS NO SERVICES AND NO DME, SHE WORKS AND DRIVES SHE SAYS SHE HAS A HCP, COPY REQUESTED PCP: BABITA SALEEM PT WILL DC HOME TODAY VIA FAMILY TRANSPORT
[2023-06-22 04:08] LABS: HBS Num1 0.11 mIU/mL (0-7.99); HBsAGNum1 0.33 S/CO (0.00-0.99); Hepatitis A Antibody IgM 0.12 Index (0-0.79); Hepatitis B Core Antibody Nonreactive (Nonreactive); Hepatitis B Surface Antigen Negative (Negative); ~HepC Num1 0.09 S/CO (0.00-0.79); ~Hepatitis A Antibody IgM Nonreactive (Nonreactive); ~Hepatitis B Surface Antibody NONREACTIVE (Nonreactive); ~Hepatitis C Antibody Nonreactive (Nonreactive)
== END 2023-06-21 12:25 | disposition home or self-care (01) | DRG 195 ==
LOC: HO.ED 23:21 → HO.EDOVER 06-20 00:01 → HO.S3 06-20 03:31
PROVIDERS: Registered Nurse Emergency; Admitting Provider Internal Medicine; Emergency Provider Emergency Medicine; PCP Pediatrics; Visit Provider Student in an Organized Health Care Education/Training Program
DX: J10.1 Influenza due to other identified influenza virus with other respiratory manifestations (principal); E87.6 Hypokalemia; I48.91 Unspecified atrial fibrillation; E83.42 Hypomagnesemia; Z20.822 Contact with and (suspected) exposure to COVID-19; Z79.899 Other long term (current) drug therapy
CPT/HCPCS: 0241U; 36415; 71045; 80048; 80053; 80076; 83735; 83880; 84443; 84484; 85025; 85027; 86140; 86704; 86706; 86709; 86803; 87340; 87651; 93005; 97161; 99221; 99285; J1650; J1885; J3480; J7120

== ENCOUNTER → 2023-06-19 19:36 | Outpatient (BNV) | payer OTHER, SELFPAY | PROVIDERS: Admitting Provider Internal Medicine; Emergency Provider Emergency Medicine; PCP Pediatrics; Visit Provider Internal Medicine | DX: I49.1 Atrial premature depolarization (principal); R94.31 Abnormal electrocardiogram [ECG] [EKG]; R00.0 Tachycardia, unspecified | CPT/HCPCS: 93010 ==

== ENCOUNTER → 2023-06-19 23:57 | Outpatient (BNV) | payer OTHER, SELFPAY | PROVIDERS: Admitting Provider Internal Medicine; Emergency Provider Emergency Medicine; PCP Pediatrics; Visit Provider Internal Medicine | DX: R74.8 Abnormal levels of other serum enzymes (principal); E87.6 Hypokalemia; E83.42 Hypomagnesemia; J10.1 Influenza due to other identified influenza virus with other respiratory manifestations; R53.1 Weakness | CPT/HCPCS: 99223; 99233; 99239 ==

== ENCOUNTER 2023-10-11 19:50 | Emergency (ER) | payer OTHER, SELFPAY ==
--- NOTE | ~2023-10-11 | CT_ITS ---
EXAMINATION: CT head/brain wo IV con CLINICAL INFORMATION: head injury COMPARISON: None. TECHNIQUE: Contiguous axial imaging was performed from the skull base to vertex without intravenous contrast. This CT examination was performed using dose optimization techniques as appropriate, variously including the following: * Automated exposure control * Adjustment of mA and/or kV according to patient size (this includes techniques or standardized protocols for targeted exams where dose is matched to indication/reason for exam; i.e. extremities or head) * Use of iterative reconstruction technique DLP: 617 mGy-cm. FINDINGS: There is no evidence of acute intracranial hemorrhage or territorial infarction. Seo to white matter differentiation is well preserved. No abnormal mass effect or midline shift is seen. No extra-axial fluid collections are identified. No hydrocephalus. Proportional prominence of the ventricles and sulcal spaces is consistent with mild volume loss. Patchy periventricular and deep white matter hypoattenuation is consistent with mild small vessel ischemic changes. The cerebellar tonsils are well positioned. 2 skin suzanne seen along the right frontal scalp without associated subgaleal hematoma or underlying calvarial fracture. Bilateral lens extraction. The mastoid air cells and visualized portions of the paranasal sinuses are well aerated. CT/CT head/brain wo IV con IMPRESSION: No acute intracranial pathology.
[2023-10-11 20:09] VITALS: BP 158/72; PULSE 66; RESP 16; TEMP 36.6; O2SAT 99; BMI 24.7
[2023-10-11] MEDS: Acetaminophen 325 MG TABLET 975 MG PO (21:57)
--- NOTE | 2023-10-11 22:53 | ED.HEATRA ---
HPI - Head Injury General Chief complaint: Head Injury Stated complaint: head wound Time Seen by Provider: 10/11/23 22:03 Source: patient and RN notes reviewed Mode of arrival: ambulatory Limitations: no limitations History of Present Illness HPI Narrative: This is a 68-year-old female, with no known medical problems, who presents emergency department with complaints of laceration to the top of her head. 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 She denies hitting her head or loss of consciousness. She states that she has slight tenderness around the wound as well as a slight headache. No blurred vision, lightheadedness, chest pain, shortness of breath abdominal pain, nausea, vomiting or diarrhea. She is not on anticoagulants. No other complaints or concerns at this time. MD Complaint: head injury Place: home Loss of Consciousness: no Location of injury: frontal Severity: moderate Quality: aching Radiation: none Other Injuries: laceration Associated symptoms: denies other symptoms Related Data Home Medications ?Medication ?Instructions ?Recorded ?Confirmed bimatoprost 0.03 % drops with 1 drp topical BEDTIME 06/20/23 06/20/23 applicator, eyelash base diltiazem HCl 120 mg 120 mg PO DAILY 06/20/23 06/20/23 capsule,extended release 24 hr fluoxetine 20 mg capsule 20 mg PO DAILY 06/20/23 06/20/23 gabapentin 300 mg capsule 300 mg PO TID 06/20/23 06/20/23 [id number] 1 cap PO DAILY PRN snacks 06/20/23 06/20/23 36,000-114,000-180,000 unit capsule,delay rel (Creon) [id number] 2 cap PO TID 06/20/23 06/20/23 36,000-114,000-180,000 unit capsule,delay rel (Creon) multivitamin with iron 1 tab PO DAILY 06/20/23 06/20/23 risedronate 150 mg tablet 150 mg PO QMONTH 06/20/23 06/20/23 triamterene 37.5 1 cap PO DAILY 06/20/23 06/20/23 mg-hydrochlorothiazide 25 mg capsule Previous Rx's ?Medication ?Instructions ?Recorded benzonatate 100 mg capsule 100 mg PO TID PRN Cough #20 caps 06/21/23 fluticasone propionate 50 1 spray intranasal BID #16 grams 06/21/23 mcg/actuation nasal spray,suspension oseltamivir 75 mg capsule (Tamiflu) 75 mg PO Q12H #6 caps 06/21/23 Allergies Allergy/AdvReac Type Severity Reaction Status Date / Time codeine [CODEINE] Allergy Unknown NAUSEA & Verified 10/11/23 20:10 VOMITING Codeine Phosphate Allergy Unknown Vomiting Uncoded 10/11/23 20:10 Codeine Sulfate Allergy Unknown vomiting Uncoded 10/11/23 20:10 Review of Systems Review of Systems: Yes all other systems are reviewed and are negative Constitutional: Constitutional: Reports as per [facility] Past Medical History Attestation statement: The following information was validated with the patient. Medical History Collagenous colitis Tachyarrhythmia Social History Social History Household Members: None Housing: House Do you presently have visiting nurse or other home services: No Patient Tobacco Use Status: Never used Tobacco Smoked in Last 30 Days: No e-Cigarette/Vaping Use: Never Used Second Hand Smoke Exposure: No Advance Directives: No Advance Directives Information Provided: No service: No Physical Exam Vital Signs: Vital Signs: Last Vital Signs Temp 98.2 F 10/12/23 00:46 Pulse 63 10/12/23 00:46 Resp 17 10/12/23 00:46 BP 139/65 10/12/23 00:46 Pulse Ox 99 10/12/23 00:46 O2 Del Method Room Air 10/12/23 00:46 BMI result Body Mass Index 24.7 Const: General: cooperative, comfortable and no acute distress Orientation/consciousness: patient oriented x3 Limitations: no limitations HEENT: Head: Yes normal to inspection, Yes normocephalic and Yes atraumatic Ears: hearing grossly normal bilaterally General nose exam: Normal external nose present Face and sinus: Yes normal facial exam Mouth: Normal oral and palatal mucosa present, oropharynx normal and moist mucous membranes Throat: Yes posterior oropharynx normal Eyes: General: appearance normal, both eyes and all related structures Eyelids: Yes eyelids normal Conjunctivae: conjunctivae normal Sclerae: sclerae normal Pupils: Equal, round and reactive pupils present EOM: EOMs intact bilaterally Neck: Neck: Yes normal visual inspection, Yes full ROM and Yes no lymphadenopathy Lymphatic: no lymphadenopathy noted Chest: Chest palpation & inspection: normal inspection of the chest Resp: Effort & Inspection: normal respiratory effort and able to speak in complete sentences Auscultation: clear to auscultation bilaterally, no crackles, no rales, no rhonchi and no wheezes Cardio: Rate: regular rate Rhythm: regular rhythm Heart sounds: S1 normal heart sound present and S2 normal heart sound present GI: Inspection: Yes normal to inspection Skin: Other: 1-1/2 cm partial-thickness laceration noted to the frontal scalp, minimal bleeding noted. General skin exam: no rashes or lesions noted Trauma: no lacerations or abrasions Wounds: no wounds Neuro: General: patient oriented x3 and moves all extremities Cranial nerves: Yes CN's II-XII intact bilaterally and Yes Equal, round and reactive pupils present Gait exam (Neuro): Normal gait present Motor exam (neuro): 5/5 motor strength present throughout and Pronator motor function not present Extrem: General: Yes normal to inspection Right upper extremity: normal to inspection Left upper extremity: normal to inspection Right lower extremity: normal to inspection Left lower extremity: normal to inspection Course Reevaluation(s) Reevaluation #1: CT head unremarkable, wound closed with 2 suzanne. Patient tolerated procedure well. Given wound care instructions and return precautions. She understands and agrees with plan. Patient stable for discharge. Medications Administered Discontinued Medications Generic Name Dose Route Start Last Admin Trade Name Andreaq PRN Reason Stop Dose Admin Acetaminophen 975 mg 10/11/23 21:50 10/11/23 21:57 Acetaminophen 325 Mg Tablet PO 10/11/23 21:51 975 mg ONCE ONE Administration Bacitracin 1 appl 10/12/23 00:01 10/12/23 00:37 Bacitracin Oint 0.9 Gm Packet TOPICAL 10/12/23 00:02 1 appl ONCE ONE Administration Protocol Diphtheria/Tetanus/Acell Pertussis 0.5 ml 10/12/23 00:01 10/12/23 00:36 Diphth,Pertus(Acell),Tet Adult 0.5 Ml Syringe IM 10/12/23 00:02 0.5 ml .ONCE ONE Administration Medical Decision Making Medical Decision Making MDM Narrative: Is a 68-year-old female, with no known medical problems, who presents emergency department complaints of head injury which occurred prior to arrival. Patient states that she has been down to pick an item and struck top of her head on a mailbox. She has a 1.5cm partial-thickness laceration to the top of her head. She is alert and oriented x 4. She has not on anticoagulants. She is neurologically intact without any focal findings. Cervical spine nontender. Wound requiring suture repair. Her tetanus is not up-to-date, therefore will update today. Given age, will obtain CT of the head to rule out any intracranial process. Differential Diagnosis Differential Diagnoses: The differential diagnosis associated with the presentation includes ICH, laceration, contusion, closed head injury Admission/Observation Consideration of admission/observation: Escalation of care including admission/observation considered Escalation of care including admission/observation considered however given workup today not warranted at this time. Radiology Impression Discussion of test interpretation with radiology: I have reviewed the radiologist's reading. Radiologist Impression: FINDINGS: There is no evidence of acute intracranial hemorrhage or territorial infarction. Seo to white matter differentiation is well preserved. No abnormal mass effect or midline shift is seen. No extra-axial fluid collections are identified. No hydrocephalus. Proportional prominence of the ventricles and sulcal spaces is consistent with mild volume loss. Patchy periventricular and deep white matter hypoattenuation is consistent with mild small vessel ischemic changes. The cerebellar tonsils are well positioned. 2 skin suzanne seen along the right frontal scalp without associated subgaleal hematoma or underlying calvarial fracture. Bilateral lens extraction. The mastoid air cells and visualized portions of the paranasal sinuses are well aerated. CT/CT head/brain wo IV con IMPRESSION: No acute intracranial pathology. Procedures Laceration Laceration 1: Site: scalp Size (cm): 1.5 Description: linear Depth: simple, single layer Pre-repair: wound explored, irrigated extensively and deep structures intact Skin layer closed with: other (2 Suzanne) Discharge Plan Discharge Clinical Impression: Laceration of scalp, Head injury Patient Disposition: Home, Self-Care Instructions: Laceration (ED), Staple Care (ED) Additional Instructions: You were seen in the emergency department due to a head injury. We placed 2 suzanne within your scalp. Please have suzanne removed in 7-10 days. Do not submerge wound and hot tubs or baths. If you do get wound wet, pat dry. Do not pick at wound. Keep wound clean and dry. You may use gentle soap and water for cleansing. We updated your tetanus shot in the department today. Your CT of your head did not show any abnormalities. Mental and physical rest over the next several days can help. If any new or worsening symptoms occur including but not limited to severe headache, dizziness, blurred vision, chest pain, shortness of breath, please return for re-evaluation. Prescriptions: No Action triamterene-hydrochlorothiazid 37.5-25 mg capsule 1 cap PO DAILY gabapentin 300 mg capsule 300 mg PO TID bimatoprost 0.03 % drops with applicator 1 drp TOPICAL BEDTIME Rx Instructions: APPLY TO AFFECTED UPPER EYELIDS Creon 36,000-114,000- 180,000 unit capsule,delayed release(DR/EC) 2 cap PO TID diltiazem HCl 120 mg capsule,extended release 24hr 120 mg PO DAILY fluoxetine 20 mg capsule 20 mg PO DAILY risedronate 150 mg tablet 150 mg PO QMONTH multivitamin with iron Tablet 1 tab PO DAILY [place]on 36,000-114,000- 180,000 unit capsule,delayed release(DR/EC) 1 cap PO DAILY PRN (Reason: snacks) benzonatate 100 mg Capsule 100 mg PO TID PRN (Reason: Cough) Qty: 20 0RF oseltamivir [Tamiflu] 75 mg Capsule 75 mg PO Q12H Qty: 6 0RF fluticasone propionate 50 mcg/actuation [place],Suspension 1 spray intranasal BID Qty: 16 0RF Interventions: ED Discharge Assessment Last Done: 10/12/23 00:46 Discharge Date/Time: 10/12/23 00:47 Print Language: Kyrgy[place]
[2023-10-12 00:23] VITALS: BP 139/65; PULSE 63; RESP 17; TEMP 36.8; O2SAT 99
[2023-10-12] MEDS: Diphth,Pertus(ACell),Tet Adult 0.5 ML SYRINGE IM (00:36)
[2023-10-12] MEDS: Bacitracin Oint 0.9 GM PACKET 1 APPL TOPICAL (00:37)
[2023-10-12 00:46] VITALS: BP 139/65; PULSE 63; RESP 17; TEMP 36.8; O2SAT 99
== END 2023-10-12 00:47 | disposition home or self-care (01) ==
PROVIDERS: Emergency Provider Emergency Medicine Emergency Medical Services; PCP Pediatrics
DX: S01.01XA Laceration without foreign body of scalp, initial encounter (principal); S00.91XA Abrasion of unspecified part of head, initial encounter; R51.9 Headache, unspecified; W01.10XA Fall on same level from slipping, tripping and stumbling with subsequent striking against unspecified object, initial encounter; Y93.9 Activity, unspecified; Y92.9 Unspecified place or not applicable; Y99.8 Other external cause status; Z23 Encounter for immunization
CPT/HCPCS: 12031; 70450; 90471; 90715; 99284

== ENCOUNTER 2024-06-22 11:48 | Emergency (ER) | payer MEDICARE, OTHER, SELFPAY ==
--- NOTE | 2024-06-22 11:49 | ECG_ITS ---
Test Reason : CHEST PAIN Blood Pressure : / mmHG Vent. Rate : 072 BPM Atrial Rate : 072 BPM P-R Int : 174 ms QRS Dur : 072 ms QT Int : 404 ms P-R-T Axes : 053 -05 067 degrees QTc Int : 442 ms Normal sinus rhythm Normal ECG When compared with ECG of 19-JUN-2023 20:33, Previous ECG has undetermined rhythm, needs review QT has shortened Referred By: Generic ED Physician Electronically Signed By:AVANI ALMAZAN MD
[2024-06-22 12:04] VITALS: BP 151/78; PULSE 73; RESP 18; TEMP 36.4; O2SAT 100; BMI 24.6
[2024-06-22 12:36] LABS: MANUAL DIFF FLAG NO
[2024-06-22 12:38] LABS: Basophils Percent Auto 0.4 % (0-2); Eosinophils Percent Auto 0.3 % (0-4); Hematocrit 33.7 % (37.0-47.0); Hemoglobin 11.5 g/dl (12.0-16.0); Imm Gran Abs Auto 0.01 X10*3/uL (0.00-0.03); Imm Gran Pct Auto 0.1 % (0.0-0.4); Lymphocytes Absolute Auto 1.4 X10*3/uL (1.2-4.9); Lymphocytes Percent Auto 19.7 % (20-40); Mean Corpuscular HGB Conc 34.1 g/dl (31.0-35.0); Mean Corpuscular Hemoglobin 32.6 pg (27.0-33.0); Mean Corpuscular Volume 95.5 fL (80.0-98.0); Mean Platelet Volume 7.7 fL (9.4-12.3); Monocytes Absolute Auto 0.6 X10*3/uL (0.1-1.2); Monocytes Percent Auto 9.2 % (2-11); Neutrophils Absolute Auto 4.9 x10*3/uL (2.0-8.3); Neutrophils Percent Auto 70.3 % (45-73); Platelet Count 266 X10*3/uL (160-400); Red Blood Count 3.53 X10*6/uL (4.20-5.50); Red Cell Distribution Width 13.2 % (11.0-16.0)
--- NOTE | 2024-06-22 12:41 | ED_ITS ---
HPI - General Adult General Chief complaint: Upper Respiratory Symptoms Stated complaint: chest pain sob Time Seen by Provider: 06/22/24 13:29 Source: patient, RN notes reviewed and old records reviewed Mode of arrival: ambulatory Limitations: no limitations History of Present Illness ED Provider: Lexi PARKS narrative: 69-year-old female presents for evaluation of chest tightness and cough. Her symptoms started 2 days ago. She reports that she was visiting her brother at a [facility] and her brother ended up testing positive for RSV The patient reports a cough but tends to be worse at night. She has no cardiac disease She reports her symptoms are mild but presents to ER due to her chest tightness. Related Data Home Medications ?Medication ?Instructions ?Recorded ?Confirmed bimatoprost 0.03 % drops with 1 drp topical BEDTIME 06/20/23 06/20/23 applicator, eyelash base diltiazem HCl 120 mg 120 mg PO DAILY 06/20/23 06/20/23 capsule,extended release 24 hr fluoxetine 20 mg capsule 20 mg PO DAILY 06/20/23 06/20/23 gabapentin 300 mg capsule 300 mg PO TID 06/20/23 06/20/23 dljfop-isxnqhiq-teslwmd 1 cap PO DAILY PRN snacks 06/20/23 06/20/23 36,000-114,000-180,000 unit capsule,delay rel (Creon) pcdzim-nocmjbtv-uxfwdnp 2 cap PO TID 06/20/23 06/20/23 36,000-114,000-180,000 unit capsule,delay rel (Creon) multivitamin with iron 1 tab PO DAILY 06/20/23 06/20/23 risedronate 150 mg tablet 150 mg PO QMONTH 06/20/23 06/20/23 triamterene 37.5 1 cap PO DAILY 06/20/23 06/20/23 mg-hydrochlorothiazide 25 mg capsule Previous Rx's ?Medication ?Instructions ?Recorded benzonatate 100 mg capsule 100 mg PO TID PRN Cough #20 caps 06/21/23 fluticasone propionate 50 1 spray intranasal BID #16 grams 06/21/23 mcg/actuation nasal spray,suspension oseltamivir 75 mg capsule (Tamiflu) 75 mg PO Q12H #6 caps 06/21/23 benzonatate 200 mg capsule 200 mg PO TID PRN cough #20 caps 06/22/24 Allergies Allergy/AdvReac Type Severity Reaction Status Date / Time codeine [CODEINE] Allergy Unknown NAUSEA & Verified 06/22/24 12:06 VOMITING Codeine Phosphate Allergy Unknown Vomiting Uncoded 10/11/23 20:10 Codeine Sulfate Allergy Unknown vomiting Uncoded 10/11/23 20:10 Review of Systems 2 Constitutional: Constitutional: Denies body ache(s), Denies chills and Denies fever(s) ENT: Denies sore throat Cardiovascular: Cardiovascular: Reports chest pain and Denies dyspnea Respiratory: Respiratory: Reports cough and Denies dyspnea PMFSH Past Medical History Medical History Collagenous colitis Tachyarrhythmia Social History Social History Household Members: None Housing: House Do you presently have visiting nurse or other home services: No Patient Tobacco Use Status: Never used Tobacco e-Cigarette/Vaping Use: Never Used Second Hand Smoke Exposure: No Advance Directives: No Advance Directives Information Provided: No Do you have a plan to hurt others: No Plan service: No Physical Exam ED Vital Signs: Vital Signs - 24 hr 06/22/24 12:04 Temperature 97.5 F Pulse Rate 73 Respiratory Rate 18 Blood Pressure 151/78 H Pulse Oximetry 100 Oxygen Delivery Method Room Air BMI result Body Mass Index 24.6 Const General: healthy appearing, comfortable, no acute distress, alert and awake Nutritional Appearance: well nourished Orientation/consciousness: patient oriented x3 HENMT Head: Yes normocephalic and Yes atraumatic Eyes Eyelids: Yes eyelids normal Conjunctivae: conjunctivae normal Sclerae: sclerae normal Corneas: corneas normal Pupils: Equal, round and reactive pupils present EOM: EOMs intact bilaterally Neck Neck: Yes full ROM Resp Effort & Inspection: normal respiratory effort, able to speak in complete sentences, no audible wheezes and not labored Auscultation: clear to auscultation bilaterally Cardio Rate: regular rate Rhythm: regular rhythm GI Inspection: No distended Palpation (GI): Soft to palpation, not firm, nontender, no guarding and not rigid Skin General skin exam: elasticity normal Neuro General: patient oriented x3 Cranial nerves: Yes Equal, round and reactive pupils present and Yes Bilaterally intact EOM present Cognition (Neuro): normal cognition Extrem Other: Moving all extremities well without any obvious deformities Course Course Course Narrative: RME, this is a rapid medical exam performed by Grant Elliott please refer to primary provider for complete H&P- 69-year-old female presents for evaluation of chest heaviness for the last 2 days. She reports that she was recently exposed to ?RSV. ? She does complain of a nonproductive cough with chills. Her EKG was performed due to the chest heaviness. We will also get a chest x-ray and labs. Medical Decision Making Medical Decision Making [facility] Narrative: 69-year-old female presents for evaluation of chest tightness and cough with a known recent exposure to RSV. Given her age and chest tightness we will get an EKG, labs and viral syndrome. Her lungs are clear to auscultation will hold imaging at this time. The patient's workup is largely unremarkable, she did test positive for RSV. Her sodium was just below normal at 132 which is discussed with her. She reports that she does take a diuretic due leg swelling. I encouraged her to fluid restrict for the next few days. Her EKG is nonischemic and her troponin is negative, she rules out for ACS Differential Diagnosis Differential Diagnoses: The differential diagnosis associated with the presentation includes Chest pain Costochondritis Bronchitis RSV Pneumonia ACS less likely Lab Data MDM Lab Attestation statement: I reviewed the patient's lab results. No leukocytosis. The patient does have a mild normocytic anemia consistent with her labs from a year ago. There is no left shift. Mild hyponatremia to 132 chloride 94 likely related to diuretic disease. Troponin negative, no other chemistry values 06/22/24 12:32 06/22/24 12:32 Labs: Lab Results 06/22/24 Range/Units 12:32 WBC 7.0 (4.8-10.8) X10*3/uL RBC 3.53 L (4.20-5.50) X10*6/uL Hgb 11.5 L (12.0-16.0) g/dl Hct 33.7 L (37.0-47.0) % MCV 95.5 (80.0-98.0) fL MCH 32.6 (27.0-33.0) pg MCHC 34.1 (31.0-35.0) g/dl RDW 13.2 (11.0-16.0) % Plt Count 266 D (160-400) X10*3/uL MPV 7.7 L (9.4-12.3) fL Immature Gran % (Auto) 0.1 (0.0-0.4) % Neut % (Auto) 70.3 (45-73) % Lymph % (Auto) 19.7 L (20-40) % [place] % (Auto) 9.2 (2-11) % Eos % (Auto) 0.3 (0-4) % Baso % (Auto) 0.4 (0-2) % Lymph # (Auto) 1.4 (1.2-4.9) X10*3/uL [place] # (Auto) 0.6 (0.1-1.2) X10*3/uL Eos # (Auto) 0.0 (0.0-0.4) X10*3/uL Baso # (Auto) 0.0 (0.0-0.2) X10*3/uL Abs Immat Gran (auto) 0.01 (0.00-0.03) X10*3/uL Absolute Neuts (auto) 4.9 (2.0-8.3) x10*3/uL Absolute Nucleated RBC 0.000 (0.0-0.012) X10*3/uL Nucleated RBC % (auto) 0.0 (0.0-0.2) /100WBC PT 10.5 L (10.9-12.4) SEC INR 0.9 (0.9-1.1) Sodium 132 L (135-145) mmol/L Potassium 3.8 (3.3-5.1) mmol/L Chloride 94 L (96-108) mmol/L Carbon Dioxide 27 (22-29) mmol/L Anion Gap 15 (12-20) BUN 9 (9-16) mg/dL Creatinine 0.60 (0.5-1.4) mg/dL Estim Creat Clear Calc 75.0 Estimated GFR > 60 Random Glucose 97 (60-115) mg/dL Calcium 9.0 D (8.4-10.2) mg/dL Magnesium 2.1 (1.6-2.6) mg/dL Total Bilirubin 0.3 (0.0-1.0) mg/dL AST 36 H (5-31) U/L ALT 29 (0-31) U/L Alkaline Phosphatase 56 (39-117) U/L Troponin I High Sens < 2.7 D (<3.5-17.0) ng/L Total Protein 7.1 (6.5-8.0) g/dL Albumin 4.2 (3.5-5.0) g/dL Influenza Type A (PCR) NEGATIVE (Negative) Influenza Type B (PCR) NEGATIVE (Negative) RSV RNA Qual (PCR) POSITIVE A (Negative) SARS-CoV-2 RNA (RT-PCR) NEGATIVE (Negative) S. pyogenes GrpA EDMOND Negative (Negative) Independent Interpretation I performed an independent interpretation of an: EKG (Normal sinus rhythm with a rate of [address] segment elevations or depressions.) Discharge Plan Discharge Clinical Impression: RSV infection Patient Disposition: Home, Self-Care Instructions: Respiratory Syncytial Virus (ED) Additional Instructions: You tested positive for RSV. Your sodium was just below normal at 132. I recommend decreasing fluid intake for the next few days and this should improve your sodium. Follow-up with your primary doctor, return for new or worsening symptoms You may use Tessalon Perles as needed for cough Prescriptions: New benzonatate 200 mg capsule 200 mg PO TID PRN (Reason: cough) Qty: 20 0RF No Action triamterene-hydrochlorothiazid 37.5-25 mg capsule 1 cap PO DAILY gabapentin 300 mg capsule 300 mg PO TID bimatoprost 0.03 % drops with applicator 1 drp TOPICAL BEDTIME Rx Instructions: APPLY TO AFFECTED UPPER EYELIDS Creon 36,000-114,000- 180,000 unit capsule,delayed release(DR/EC) 2 cap PO TID diltiazem HCl 120 mg capsule,extended release 24hr 120 mg PO DAILY fluoxetine 20 mg capsule 20 mg PO DAILY risedronate 150 mg tablet 150 mg PO QMONTH multivitamin with iron Tablet 1 tab PO DAILY Creon 36,000-114,000- 180,000 unit capsule,delayed release(DR/EC) 1 cap PO DAILY PRN (Reason: snacks) benzonatate 100 mg Capsule 100 mg PO TID PRN (Reason: Cough) Qty: 20 0RF oseltamivir [Tamiflu] 75 mg Capsule 75 mg PO Q12H Qty: 6 0RF fluticasone propionate 50 mcg/actuation [place],Suspension 1 spray intranasal BID Qty: 16 0RF Print Language: Urdu
[2024-06-22 12:46] LABS: INTERNATIONAL NORM RATIO 0.9 (0.9-1.1); Prothrombin Time 10.5 SEC (10.9-12.4)
[2024-06-22 12:49] LABS: IDNOW Serial# 58CA691E; Strep A Nucleic Acid Negative (Negative)
[2024-06-22 12:53] LABS: Alanine Aminotransferase 29 U/L (0-31); Albumin Level 4.2 g/dL (3.5-5.0); Alkaline Phosphatase 56 U/L (39-117); Anion Gap 15 (12-20); Aspartate Amino Transferase 36 U/L (5-31); Bilirubin Total 0.3 mg/dL (0.0-1.0); Blood Urea Nitrogen 9 mg/dL (9-16); Carbon Dioxide 27 mmol/L (22-29); Chloride 94 mmol/L (96-108); Estimated Glomerular Filt Rate > 60; Glucose Random 97 mg/dL (60-115); Magnesium 2.1 mg/dL (1.6-2.6); Potassium 3.8 mmol/L (3.3-5.1); Sodium 132 mmol/L (135-145); Total Protein 7.1 g/dL (6.5-8.0)
[2024-06-22 13:00] LABS: Troponin-I High Sensitivity < 2.7 ng/L (<3.5-17.0)
[2024-06-22 13:21] LABS: Influenza A PCR NEGATIVE (Negative); Influenza B PCR NEGATIVE (Negative); Resp Syncy Virus RNA Qual PCR POSITIVE (Negative); SARS COV2 PCR INHOUSE NEGATIVE (Negative)
[2024-06-22 13:45] VITALS: BP 151/78; PULSE 73; RESP 18; TEMP 36.4; O2SAT 100
== END 2024-06-22 13:45 | disposition home or self-care (01) ==
PROVIDERS: Emergency Provider Emergency Medicine; PCP Pediatrics
DX: R05.9 Cough, unspecified (principal); B97.4 Respiratory syncytial virus as the cause of diseases classified elsewhere; R07.9 Chest pain, unspecified; Z03.818 Encounter for observation for suspected exposure to other biological agents ruled out
CPT/HCPCS: 0241U; 80053; 83735; 84484; 85025; 85610; 87651; 93005; 99283

== ENCOUNTER → 2024-06-22 11:49 | Outpatient (BNV) | payer MEDICARE, OTHER, SELFPAY | PROVIDERS: Emergency Provider Emergency Medicine; PCP Pediatrics; Visit Provider Internal Medicine Cardiovascular Disease | DX: R07.9 Chest pain, unspecified (principal) | CPT/HCPCS: 93010 ==

== ENCOUNTER 2024-10-20 16:31 | Emergency (ER) | payer MEDICARE, OTHER, SELFPAY ==
--- NOTE | ~2024-10-20 | XR_ITS ---
CLINICAL HISTORY: chest pain 1 view chest x-ray Comparison: None Findings: The lungs are clear. Normal size heart. Status post right shoulder replacement. No acute fracture. There is gaseous distention of bowel within the visualized abdomen. IMPRESSION: 1. No acute cardiopulmonary disease. 2. Gaseous distention of bowel within the visualized abdomen. This document has been electronically signed by: Vida Feldman MD on 10/20/2024 17:18:21
[2024-10-20 16:39] VITALS: BP 165/97; BP 190/110; PULSE 130; PULSE 147; RESP 22; TEMP 36.8; O2SAT 98; O2SAT 99; BMI 23.4
--- NOTE | 2024-10-20 16:45 | ECG_ITS ---
Test Reason : PALPITATION Blood Pressure : */* mmHG Vent. Rate : 88 BPM Atrial Rate : 88 BPM P-R Int : 190 ms QRS Dur : 74 ms QT Int : 366 ms P-R-T Axes : 61 34 65 degrees QTcB Int : 442 ms Normal sinus rhythm Normal ECG When compared with ECG of 22-Jun-2024 12:00, No significant change was found Referred By: Generic ED Physician Electronically Signed By: Neil Zapata
[2024-10-20 17:01] LABS: MANUAL DIFF FLAG NO
[2024-10-20 17:02] LABS: Basophils Percent Auto 0.4 % (0-2); Eosinophils Percent Auto 0.1 % (0-4); Hematocrit 37.3 % (37.0-47.0); Hemoglobin 12.9 g/dl (12.0-16.0); Imm Gran Abs Auto 0.02 X10*3/uL (0.00-0.03); Imm Gran Pct Auto 0.3 % (0.0-0.4); Lymphocytes Absolute Auto 1.7 X10*3/uL (1.2-4.9); Lymphocytes Percent Auto 23.9 % (20-40); Mean Corpuscular HGB Conc 34.6 g/dl (31.0-35.0); Mean Corpuscular Hemoglobin 32.6 pg (27.0-33.0); Mean Corpuscular Volume 94.2 fL (80.0-98.0); Monocytes Absolute Auto 0.8 X10*3/uL (0.1-1.2); Monocytes Percent Auto 11.1 % (2-11); Neutrophils Absolute Auto 4.6 x10*3/uL (2.0-8.3); Neutrophils Percent Auto 64.2 % (45-73); Platelet Count 300 X10*3/uL (160-400); Red Blood Count 3.96 X10*6/uL (4.20-5.50); Red Cell Distribution Width 12.8 % (11.0-16.0); White Blood Count 7.2 X10*3/uL (4.8-10.8)
[2024-10-20 17:09] LABS: INTERNATIONAL NORM RATIO 0.9 (0.9-1.1); Prothrombin Time 10.8 SEC (10.9-12.4)
[2024-10-20 17:14] LABS: Alanine Aminotransferase 34 U/L (0-31); Albumin Level 4.5 g/dL (3.5-5.0); Alkaline Phosphatase 67 U/L (39-117); Anion Gap 15 (12-20); Aspartate Amino Transferase 33 U/L (5-31); Bilirubin Total 0.3 mg/dL (0.0-1.0); Blood Urea Nitrogen 12 mg/dL (9-16); Calcium 9.3 mg/dL (8.4-10.2); Carbon Dioxide 25 mmol/L (22-29); Chloride 93 mmol/L (96-108); Creatinine Clr Calc Pharmacy 62.7; Estimated Glomerular Filt Rate > 60; Glucose Random 125 mg/dL (60-115); Magnesium 2.2 mg/dL (1.6-2.6); Potassium 3.9 mmol/L (3.3-5.1); Sodium 129 mmol/L (135-145); Total Protein 7.7 g/dL (6.5-8.0)
[2024-10-20 17:21] LABS: Troponin-I High Sensitivity 3.1 ng/L (<3.5-17.0)
--- OUTSIDE RECORDS SUMMARY | 2024-10-20 17:36 | XMS_ITS | Clinical Summary ---
Author Organization [facility] Address [address] [place] [address] Care Team Providers Care Repeater Chief Name Role Phone Ishmael Madrigal MD Primary Care Provider Allergies Active Allergy Reactions Criticality Noted Date Comments Codeine Nausea Only,Nausea And Vomiting Low 12/21 Medications Medication Sig Dispensed Refills Start Date End Date Status bimatoprost (LATISSE) 0.03 % ophthalmic solution 0 04/09/2022 Activ e Calcium Carbonate-Vitamin D 500-3.125 MG-MCG TABS Calcium 500 + D 1 tab daily orally 0 Active dilTIAZem (CARDIZEM CD) 120 MG 24 hr capsule Take 1 capsule (120 mg total) by mouth daily. 0 06/01/2022 Active FLUoxetine (PROzac) 10 MG capsule Take 2 capsules (20 mg total) by mouth. 0 Active gabapentin (NEURONTIN) 300 MG capsule gabapentin 300 mg capsule 0 05/01/2022 Active Multiple Vitamin (Multivitamin Adult) TABS daily. 0 10/26/2013 Active risedronate (ACTONEL) tablet 150 mg Take 1 tablet (150 mg total) by mouth. 0 05/01/2022 Active triamterene-hydrochl orothiazide (DYAZIDE) 37.5-25 MG per capsule Take 1 capsule by mouth daily. 0 Active Active Problems Problem Noted Date Diagnosed Date Ulcerative colitis 06/10/2022 Social History Tobacco Use Types Packs/Day Years Used Date Smoking Tobacco: Never Assessed Sex and Gender Information Value Date Recorded Sex Assigned at Female 05/28/2022 10:36 AM EST Gender Identity Female 05/28/2022 10:36 AM EST Sexual Orientation Not on file Job Start Date Occupation Industry Not on file Not on file Not on file Last Filed Vital Signs Vital Sign Reading Time Taken Comments Blood Pressure 148/76 06/25/2022 4:23 PM EST Pulse 68 06/25/2022 4:23 PM EST Temperature 36.7 ??C (98.1 ??F) 06/25/2022 4:23 PM ES T Respiratory Rate 18 06/11/2022 1:42 PM EST Oxygen Saturation 98% 06/25/2022 4:23 PM EST Inhaled Oxygen Concentration - - Weight 60.9 kg (134 lb 3.2 oz) 06/11/2022 1:42 P M EST Height - - Body Mass Index - - Plan of Treatment Health Maintenance Due Date Last Done Comments Hepatitis C Screening 1954 COVID-19 Vaccine (#1) 1954 Depression Screening 1966 Preventative Health Evaluation 01/15/1972 DTap / Tdap / Td (1 - Tdap) 1973 Colon Cancer Screening (Colonoscopy) 1999 Breast Cancer Screening (Mammogram) 01/15/2004 Shingrix-Zoster Vaccine (1 of 2) 01/15/2004 Fall Risk Assessment 2019 Osteoporosis Screening (DEXA Scan) 2019 Pneumococcal Vaccine (1 of 1 - PCV) 2019 Influenza Vaccine (#1) 2024 RSV Adult > 60+ Yrs or Pregn ant (1 - 1-dose 75+ series) 2029 Hepatitis B Vaccines Aged Out No long er eligible based on patient's age to complete this topic RSV Ped < 20 months Aged Out No longe r eligible based on patient's age to complete this topic Care Teams Repeater Chief Relationship Specialty Start Date End Date Ishmael Madrigal MD [id number] [place] [id number] PCP - General Internal Medicine 05/28/22
--- OUTSIDE RECORDS SUMMARY | 2024-10-20 17:37 | XMS_ITS | Data Portability ---
Author Organization [facility], Main Office Address [address] [place] [address] Care Team Providers Care Cdl Dedicated Truck Driver Name Role Phone ISHMAEL SALEEM Primary Care Provider [facility] D[facility]MATOLOG[facility] Community Artist [facility] Department Clinician [phone] Stenographer MOISÉS ROMERO Neurologist [phone] [facility] ORTHO PHYSICALTH ERAPY (MACI SANTIAGO) Orthopedic Surgeon DAWSON FISHER Orthopedic Surgeon WILLIE GARCIA Flux Core Welder JUAN CARLOS BLACKWELL Video Production Intern [facility] (ORTHOPEDIC SURGERY) Orthopedic Surgeon Assessment No assessment recorded. Plan of Treatment Reminders Order Date Submit Date Provider Last Modified By Organization Details Last Modified Time Details Appointments None recorded. Lab BMP, serum or plasma 2024 025 LAURA [facility] (Centralized Electronic Ordering - All Locations), Patient Can Go To The Location Of Their Choice, [id number] 5 13:13:20 C reactive protein, QN, serum or plasma 2024 025 LAURA [facility] (Centralized Electronic Ordering - All Locations), Patient Can Go To The Location Of Their Choice, [id number] 5 13:13:20 urinalysi s, complete 2023 024 INTERFACE [facility] (Centralized Electronic Ordering - All Locations), Patient Can Go To The Location Of Their Choice, [id number] 5 06:07:45 lipid panel, serum 2023 024 LAURA [facility] (Centralized Electronic Ordering - All Locations), Patient Can Go To The Location Of Their Choice, [id number] 5 06:07:45 CRP, high sensitivi ty, serum or plasma 2023 024 LAURA [facility] (Centralized Electronic Ordering - All Locations), Patient Can Go To The Location Of Their Choice, [id number] 5 06:07:45 lipid panel, serum 2023 024 LAURA [facility], [address], [address], [place], [address], 4 06:08:11 CMP, serum or plasma 2023 024 LAUAR [facility], [address], [address], [place], [address], 4 06:08:12 urinalysi s, complete 2023 024 LAURA [facility] (Centralized Electronic Ordering - All Locations), Patient Can Go To The Location Of Their Choice, [id number] 4 06:08:12 Referral None recorded. Procedures treadmill nuclear stress test (PROC) - Rule out ischemic coronary disease in pt with exertiona l dyspnea 2024 025 yared [facility], [address], [place], [address], 5 09:24:16 Surgeries None recorded. Imaging XR, chest, 2 view - rule out pneumonia 2024 025 [facility], [facility] [place], [address], 5 08:41:44 bone density 2023 024 [facility], [address] [place], [address], 16:57:37 Medication Orders triamtere ne 37.5 mg-hydroc hlorothia zide 25 mg capsule 2024 025 [facility]/Pharmacy #[id number], [address] [place], [address], 12:20:52 doxycycli ne hyclate 100 mg tablet 2024 025 [facility]/Pharmacy #[id number], [address] [place], [address], 11:47:21 atorvasta tin 10 mg tablet 2023 024 [id number] [address] [place], [address], 10:13:41 triamtere ne 37.5 mg-hydroc hlorothia zide 25 mg capsule 2023 024 [id number] [address] [place], [address], 10:26:08 Patient TargetsNo targets recorded. Patient Instructions Encounter Date Encounter Id Patient Instructions Last Modified By Organization Details Last Modified Time 10/20/2023 [id number] At [facility] follow up visit, all current and discharge medications (OTC, herbal therapies, supplements) reviewed and reconciled with patient and or caregiver, including potential side effects, drug interactions, instructions, and the consequences of not taking medication. Reviewed potential barriers to medication adherence, such as side effects from medication or cost of medication. [email or web address] Not available 10/20/2023 13:38:16 04/11/2024 [id number] osteoporosis: care instructions [email or web address] Not available 04/11/2024 10:26:04 well visit, over 65: care instructions ariel Not available 04/11/2024 10:26:04 anxiety disorder: care instructions ariel Not available 04/11/2024 10:26:04 09/26/2024 [id number] leg and ankle edema: care instructions [email or web address] Not available 09/26/2024 12:20:13 Reason for Referral None Reported. Results Created Date Observation Date Name Description Value Unit Range Abnormal Flag Note LastModifiedBy Organization Detail LastModifiedTime 04/29/20 24 04/30/2024 CHOL+ TRIG+ HDL+L DL-D cholesterol, total 208 mg/dL 100-19 9 above high normal Not Available [facility] ([facility]) [address] [place], [address], 05/03/2024 06:08:11 04/29/20 24 04/30/2024 CHOL+ TRIG+ HDL+L DL-D triglyceride s 70 mg/dL 0-149 normal Not Available [facility] ([facility]) [address] [place], [address], 05/03/2024 06:08:11 04/29/20 24 04/30/2024 CHOL+ TRIG+ HDL+L DL-D HDL cholesterol 79 mg/dL >39 normal Not Available [facility] ([facility]) [address] [place], [address], 05/03/2024 06:08:11 04/29/20 24 04/30/2024 CHOL+ TRIG+ HDL+L DL-D LDL chol. (direct) 119 mg/dL 0-99 above high normal Not Available [facility] ([facility]) [address] [place], [address], 05/03/2024 06:08:11 04/29/20 24 04/30/2024 CHOL+ TRIG+ HDL+L DL-D LDL direct comment: URBAN RENEWAL MANAGER Not Available [facility] ([facility]) [address] [place], [address], 05/03/2024 06:08:11 04/29/20 24 04/30/2024 COMP. METAB OLIC PANEL (14) glucose 86 mg/dL 70-99 normal Not Available [facility] ([facility]) [address] [place], [address], 05/03/2024 06:08:12 04/29/20 24 04/30/2024 COMP. METAB OLIC PANEL (14) BUN 9 mg/dL 8-27 normal Not Available [facility] ([facility]) [address] [place], [address], 05/03/2024 06:08:12 04/29/20 24 04/30/2024 COMP. METAB OLIC PANEL (14) creatinine 0.68 mg/dL 0.57-1 .00 normal Not Available [facility] ([facility]) [address] [place], [address], 05/03/2024 06:08:12 04/29/20 24 04/30/2024 COMP. METAB OLIC PANEL (14) eGFR 94 mL/mi n/1.7 3 >59 normal Not Available [facility] ([facility]) [address] [facility] [place], [address], 05/03/2024 06:08:12 04/29/20 24 04/30/2024 COMP. METAB OLIC PANEL (14) BUN/creatini ne ratio 13 12-28 normal Not Available [facility] ([facility]) [address] [facility] [place], [address], 05/03/2024 06:08:12 04/29/20 24 04/30/2024 COMP. METAB OLIC PANEL (14) sodium 134 mmol/ L 134-14 4 normal Not Available [facility] ([facility]) [address] [facility] [place], [address], 05/03/2024 06:08:12 04/29/20 24 04/30/2024 COMP. METAB OLIC PANEL (14) potassium 4.5 mmol/ L 3.5-5. 2 normal Not Available [facility] ([facility]) [address] [facility] [place], [address], 05/03/2024 06:08:12 04/29/20 24 04/30/2024 COMP. METAB OLIC PANEL (14) chloride 96 mmol/ L 96-106 normal Not Available [facility] ([facility]) [address] [place], [address], 05/03/2024 06:08:12 04/29/20 24 04/30/2024 COMP. METAB OLIC PANEL (14) carbon dioxide, total 23 mmol/ L 20-29 normal Not Available [facility] ([facility]) [address] [place], [address], 05/03/2024 06:08:12 04/29/20 24 04/30/2024 COMP. METAB OLIC PANEL (14) calcium 9.2 mg/dL 8.7-10 .3 normal Not Available [facility] ([facility]) [address] [place], [address], 05/03/2024 06:08:12 04/29/20 24 04/30/2024 COMP. METAB OLIC PANEL (14) protein, total 6.7 g/dL 6.0-8. 5 normal Not Available [facility] ([facility]) [address] [place], [address], 05/03/2024 06:08:12 04/29/20 24 04/30/2024 COMP. METAB OLIC PANEL (14) albumin 4.3 g/dL 3.9-4. 9 normal Not Available [facility] ([facility]) [address] [place], [address], 05/03/2024 06:08:12 04/29/20 24 04/30/2024 COMP. METAB OLIC PANEL (14) globulin, total 2.4 g/dL 1.5-4. 5 Not Available [facility] ([facility]) [address] [place], [address], 05/03/2024 06:08:12 04/29/20 24 04/30/2024 COMP. METAB OLIC PANEL (14) bilirubin, total 0.3 mg/dL 0.0-1. 2 normal Not Available [facility] ([facility]) [address] [facility] [place], [address], 05/03/2024 06:08:12 04/29/20 24 04/30/2024 COMP. METAB OLIC PANEL (14) alkaline phosphatase 49 IU/L 44-121 normal Not Available [facility] ([facility]) [address] [facility] [place], [address], 05/03/2024 06:08:12 04/29/20 24 04/30/2024 COMP. METAB OLIC PANEL (14) AST (SGOT) 27 IU/L 0-40 normal Not Available [facility] ([facility]) [address] [facility] [place], [address], 05/03/2024 06:08:12 04/29/20 24 04/30/2024 COMP. METAB OLIC PANEL (14) ALT (SGPT) 25 IU/L 0-32 normal Not Available [facility] ([facility]) [address] [facility] [place], [address], 05/03/2024 06:08:12 04/29/20 24 05/03/2024 URINA LYSIS , COMPL ETE specific gravity COMMEN T Test not perfo rmed. Patie nt was unabl e to provi de a self- colle cted speci men for the reque sted testi ng. The follo wing test( s) were not perfo rmed: Not Available [facility] ([facility]) [address] [facility] [place], [address], 05/03/2024 06:08:12 04/29/20 24 05/03/2024 URINA LYSIS , COMPL ETE pH TNP Test not perfo rmed Not Available [facility] ([facility]) [address] [facility] [place], [address], 05/03/2024 06:08:12 04/29/20 24 05/03/2024 URINA LYSIS , COMPL ETE urine-color URBAN RENEWAL MANAGER Not Available [facility] ([facility]) [address] [facility], [place], [address], 05/03/2024 06:08:12 04/29/20 24 05/03/2024 URINA LYSIS , COMPL ETE appearance URBAN RENEWAL MANAGER Not Available [facility] ([facility]) [address] [facility], [place], [address], 05/03/2024 06:08:12 04/29/2005/03/2024 URINA LYSIS , COMPL ETE WBC esterase URBAN RENEWAL MANAGER Not Available [facility] ([facility]) [address] [facility], [place], [address], 05/03/2024 06:08:12 04/29/2005/03/2024 URINA LYSIS , COMPL ETE protein TNP Test not perfo rmed Not Available [facility] ([facility]) [address] [facility], [place], [address], 05/03/2024 06:08:12 04/29/2005/03/2024 URINA LYSIS , COMPL ETE glucose TNP Test not perfo rmed Not Available [facility] ([facility]) [address] [facility], [place], [address], 05/03/2024 06:08:12 04/29/2005/03/2024 URINA LYSIS , COMPL ETE ketones TNP Test not perfo rmed Not Available [facility] ([facility]) [address] [place], [address], 05/03/2024 06:08:12 04/29/2005/03/2024 URINA LYSIS , COMPL ETE occult blood URBAN RENEWAL MANAGER Not Available [facility] ([facility]) [address] [facility], [place], [address], 05/03/2024 06:08:12 04/29/20 24 05/03/2024 URINA LYSIS , COMPL ETE bilirubin URBAN RENEWAL MANAGER Not Available [facility] ([facility]) [address] [facility] [place], [address], 05/03/2024 06:08:12 04/29/20 24 05/03/2024 URINA LYSIS , COMPL ETE urobilinogen ,semi-qn URBAN RENEWAL MANAGER Not Available [facility] ([facility]) [address] [facility], [place], [address], 05/03/2024 06:08:12 04/29/20 24 05/03/2024 URINA LYSIS , COMPL ETE nitrite, urine URBAN RENEWAL MANAGER Not Available [facility] ([facility]) [address] [facility], [place], [address], 05/03/2024 06:08:12 04/29/20 24 05/03/2024 URINA LYSIS , COMPL ETE microscopic examination URBAN RENEWAL MANAGER Not Available [facility] ([facility]) [address] [facility] [place], [address], 05/03/2024 06:08:12 04/29/20 24 05/03/2024 URINA LYSIS , COMPL ETE microscopic examination URBAN RENEWAL MANAGER Not Available [facility] ([facility]) [address] [facility], [place], [address], 05/03/2024 06:08:12 07/10/19 25 07/11/2024 LIPID PANEL cholesterol, total 133 mg/dL 100-19 9 normal Not Available [facility] ([facility]) [address] [facility] [place], [address], 07/12/2024 06:07:44 07/10/19 25 07/11/2024 LIPID PANEL triglyceride s 65 mg/dL 0-149 normal Not Available [facility] ([facility]) [address] [facility] [place], [address], 07/12/2024 06:07:44 07/10/19 25 07/11/2024 LIPID PANEL HDL cholesterol 69 mg/dL >39 normal Not Available [facility] ([facility]) [address] [place], [address], 07/12/2024 06:07:44 07/10/19 25 07/11/2024 LIPID PANEL VLDL cholesterol kia 13 mg/dL 5-40 Not Available [facility] ([facility]) [address] [place], [address], 07/12/2024 06:07:44 07/10/19 25 07/11/2024 LIPID PANEL LDL chol calc (rust) 51 mg/dL 0-99 Not Available [facility] ([facility]) [address] [place], [address], 07/12/2024 06:07:44 07/10/19 25 07/11/2024 LIPID PANEL LDL calc comment: URBAN RENEWAL MANAGER Not Available [facility] ([facility]) [address] [place], [address], 07/12/2024 06:07:44 07/10/19 25 07/11/2024 C-JORDAN CTIVE PROTE IN, CARDI AC C-reactive protein, cardiac 6.54 mg/L 0.00-3 .00 above high normal Relat aubrey Risk for Futur e Cardi ovasc ular Event Low <1.00 [place] ge 1.00 - 3.00 High >3.00 Not Available [facility] ([facility]) [address] [place], [address], 07/12/2024 06:07:45 07/12/19 25 07/13/2024 COMP. METAB OLIC PANEL (14) glucose 85 mg/dL 70-99 normal Not Available [facility] ([facility]) [address] [place], [address], 07/13/2024 06:09:08 07/12/19 25 07/13/2024 COMP. METAB OLIC PANEL (14) BUN 13 mg/dL 8-27 normal Not Available [facility] ([facility]) [address] [place], [address], 07/13/2024 06:09:08 07/12/19 25 07/13/2024 COMP. METAB OLIC PANEL (14) creatinine 0.80 mg/dL 0.57-1 .00 normal Not Available [facility] ([facility]) [address] [place], [address], 07/13/2024 06:09:08 07/12/19 25 07/13/2024 COMP. METAB OLIC PANEL (14) eGFR 79 mL/mi n/1.7 3 >59 normal Not Available [facility] ([facility]) [address] [place], [address], 07/13/2024 06:09:08 07/12/19 25 07/13/2024 COMP. METAB OLIC PANEL (14) BUN/creatini ne ratio 16 12-28 normal Not Available [facility] ([facility]) [address] [facility] [place], [address], 07/13/2024 06:09:08 07/12/19 25 07/13/2024 COMP. METAB OLIC PANEL (14) sodium 132 mmol/ L 134-14 4 below low normal Not Available [facility] ([facility]) [address] [place], [address], 07/13/2024 06:09:08 07/12/19 25 07/13/2024 COMP. METAB OLIC PANEL (14) potassium 3.5 mmol/ L 3.5-5. 2 normal Not Available [facility] ([facility]) [address] [facility] [place], [address], 07/13/2024 06:09:08 07/12/19 25 07/13/2024 COMP. METAB OLIC PANEL (14) chloride 93 mmol/ L 96-106 below low normal Not Available [facility] ([facility]) [address] [place], [address], 07/13/2024 06:09:08 07/12/19 25 07/13/2024 COMP. METAB OLIC PANEL (14) carbon dioxide, total 24 mmol/ L 20-29 normal Not Available [facility] ([facility]) [address] [place], [address], 07/13/2024 06:09:08 07/12/19 25 07/13/2024 COMP. METAB OLIC PANEL (14) calcium 9.2 mg/dL 8.7-10 .3 normal Not Available [facility] ([facility]) [address] [place], [address], 07/13/2024 06:09:08 07/12/19 25 07/13/2024 COMP. METAB OLIC PANEL (14) protein, total 6.9 g/dL 6.0-8. 5 normal Not Available [facility] ([facility]) [address] [place], [address], 07/13/2024 06:09:08 07/12/19 25 07/13/2024 COMP. METAB OLIC PANEL (14) albumin 4.3 g/dL 3.9-4. 9 normal Not Available [facility] ([facility]) [address] [place], [address], 07/13/2024 06:09:08 07/12/19 25 07/13/2024 COMP. METAB OLIC PANEL (14) globulin, total 2.6 g/dL 1.5-4. 5 Not Available [facility] ([facility]) [address] [place], [address], 07/13/2024 06:09:08 07/12/19 25 07/13/2024 COMP. METAB OLIC PANEL (14) bilirubin, total 0.2 mg/dL 0.0-1. 2 normal Not Available [facility] ([facility]) [address] [facility] [place], [address], 07/13/2024 06:09:08 07/12/19 25 07/13/2024 COMP. METAB OLIC PANEL (14) alkaline phosphatase 69 IU/L 44-121 normal Not Available [facility] ([facility]) [address] [place], [address], 07/13/2024 06:09:08 07/12/19 25 07/13/2024 COMP. METAB OLIC PANEL (14) AST (SGOT) 24 IU/L 0-40 normal Not Available [facility] ([facility]) [address] [facility] [place], [address], 07/13/2024 06:09:08 07/12/19 25 07/13/2024 COMP. METAB OLIC PANEL (14) ALT (SGPT) 20 IU/L 0-32 normal Not Available [facility] ([facility]) [address] [facility], [place], [address], 07/13/2024 06:09:08 07/12/1907/13/2024 URINA LYSIS , COMPL ETE specific gravity 1.019 1.005- 1.030 normal Not Available [facility] ([facility]) [address] [facility] [place], [address], 07/13/2024 06:09:09 07/12/1907/13/2024 URINA LYSIS , COMPL ETE pH 6.0 5.0-7. 5 normal Not Available [facility] ([facility]) [address] [facility] [place], [address], 07/13/2024 06:09:09 07/12/19 25 07/13/2024 URINA LYSIS , COMPL ETE urine-color Yellow yellow Not Available [facility] ([facility]) [address] [facility] [place], [address], 07/13/2024 06:09:09 07/12/1907/13/2024 URINA LYSIS , COMPL ETE appearance Clear clear Not Available [facility] ([facility]) [address] [facility], [place], [address], 07/13/2024 06:09:09 07/12/19 25 07/13/2024 URINA LYSIS , COMPL ETE WBC esterase Trace negati ve abnormal Not Available [facility] ([facility]) [address] [facility], [place], [address], 07/13/2024 06:09:09 07/12/19 25 07/13/2024 URINA LYSIS , COMPL ETE protein Negati ve negati ve/tra ce Not Available [facility] ([facility]) [address] [facility], [place], [address], 07/13/2024 06:09:09 07/12/19 25 07/13/2024 URINA LYSIS , COMPL ETE glucose Negati ve negati ve Not Available [facility] ([facility]) [address] [facility], [place], [address], 07/13/2024 06:09:09 07/12/1907/13/2024 URINA LYSIS , COMPL ETE ketones Negati ve negati ve Not Available [facility] ([facility]) [address] [facility], [place], [address], 07/13/2024 06:09:09 07/12/1907/13/2024 URINA LYSIS , COMPL ETE occult blood Negati ve negati ve Not Available [facility] ([facility]) [address] [facility], [place], [address], 07/13/2024 06:09:09 07/12/19 25 07/13/2024 URINA LYSIS , COMPL ETE bilirubin Negati ve negati ve Not Available [facility] ([facility]) [address] [place], [address], 07/13/2024 06:09:09 01/21/20 25 07/13/2024 URINA LYSIS , COMPL ETE urobilinogen ,semi-qn 0.2 mg/dL 0.2-1. 0 normal Not Available [facility] ([facility]) [address] [facility], [place], [address], 07/13/2024 06:09:09 07/12/19 25 07/13/2024 URINA LYSIS , COMPL ETE nitrite, urine Negati ve negati ve Not Available [facility] ([facility]) [address] [facility], [place], [address], 07/13/2024 06:09:09 07/12/1907/13/2024 URINA LYSIS , COMPL ETE microscopic examination See below: Micro scopi c was indic ated and was perfo rmed. Not Available [facility] ([facility]) [address] [facility], [place], [address], 07/13/2024 06:09:09 07/12/19 25 07/13/2024 URINA LYSIS , COMPL ETE WBC 0-5 /hpf 0 - 5 Not Available [facility] ([facility]) [address] [place], [address], 07/13/2024 06:09:09 07/12/19 25 07/13/2024 URINA LYSIS , COMPL ETE RBC None seen /hpf 0 - 2 Not Available [facility] ([facility]) [address] [place], [address], 07/13/2024 06:09:09 07/12/19 25 07/13/2024 URINA LYSIS , COMPL ETE epithelial cells (non renal) 0-10 /hpf 0 - 10 Not Available [facility] ([facility]) [address] [place], [address], 07/13/2024 06:09:09 07/12/19 25 07/13/2024 URINA LYSIS , COMPL ETE epithelial cells (renal) URBAN RENEWAL MANAGER Not Available [facility] ([facility]) [address] [facility], [place], [address], 07/13/2024 06:09:09 07/12/19 25 07/13/2024 URINA LYSIS , COMPL ETE casts None seen /lpf none seen Not Available [facility] ([facility]) [address] [facility], [place], [address], 07/13/2024 06:09:09 07/12/19 25 07/13/2024 URINA LYSIS , COMPL ETE cast type URBAN RENEWAL MANAGER Not Available [facility] ([facility]) [address] [facility], [place], [address], 07/13/2024 06:09:09 07/12/19 25 07/13/2024 URINA LYSIS , COMPL ETE crystals URBAN RENEWAL MANAGER Not Available [facility] ([facility]) [address] [facility], [place], [address], 07/13/2024 06:09:09 07/12/19 25 07/13/2024 URINA LYSIS , COMPL ETE crystal type URBAN RENEWAL MANAGER Not Available [facility] ([facility]) [address] [facility], [place], [address], 07/13/2024 06:09:09 07/12/19 25 07/13/2024 URINA LYSIS , COMPL ETE mucus threads URBAN RENEWAL MANAGER Not Available [facility] ([facility]) [address] [facility] [place], [address], 07/13/2024 06:09:09 07/12/19 25 07/13/2024 URINA LYSIS , COMPL ETE bacteria None seen none seen/f ew Not Available [facility] ([facility]) [address] [facility], [place], [address], 07/13/2024 06:09:09 07/12/19 25 07/13/2024 URINA LYSIS , COMPL ETE yeast URBAN RENEWAL MANAGER Not Available [facility] ([facility]) [address] [facility], [place], [address], 07/13/2024 06:09:09 07/12/19 25 07/13/2024 URINA LYSIS , COMPL ETE trichomonas URBAN RENEWAL MANAGER Not Available [facility] ([facility]) [address] [facility], [place], [address], 07/13/2024 06:09:09 07/12/1907/13/2024 URINA LYSIS , COMPL ETE comment URBAN RENEWAL MANAGER Not Available [facility] ([facility]) [address] [facility], [place], [address], 07/13/2024 06:09:09 07/12/1907/13/2024 URINA LYSIS , COMPL ETE microscopic examination URBAN RENEWAL MANAGER Not Available [facility] ([facility]) [address] [facility], [place], [address], 07/13/2024 06:09:09 10/11/19 24 10/11/2023 CT, head + brain , w/o contr ast No observ ation record ed. [facility] (Medical Records) [address] [place], [address], 10/14/2023 20:33:28 12/03/19 24 10/30/2023 trans -thor acic echoc ardio gram (TTE) (PROC ) No observ ation record ed. [facility] Cardiology Diagnostic Testing [address] [place], [address], 04/11/2024 10:09:32 03/18/20 24 03/17/2024 da chan ow study No observ ation record ed. [facility] Diagnosit Imaging Dept [address] [place], [address], 04/11/2024 10:09:32 04/26/20 24 04/26/2024 MAMMO , scree robbie, bilat eral No observ ation record ed. [facility] [address], [place], [address], 05/12/2024 09:52:54 04/26/20 24 04/26/2024 MAMMO , scree robbie, digit al, bilat eral PROCED URE: MM Digita l Mammo Screen ing INDICA TION: Screen ing for breast cancer . COMPAR RADHA: Multip le priors , most recent 023 TECHNI QUE: Full-f ield digita l CC and MLO 3D tomosy nthesi s images of both breast s were acquir ed. Comput er-aid ed detect ion (CAD) was utiliz ed in the interp retati on of this study. DENSIT Y: There are scatte red areas of fibrog landul ar densit y. FINDIN GS: No suspic ious masses , suspic ious microc alcifi cation s, or areas of stephani ectura l distor tion are seen in either breast to sugges t malign hussein. IMPRES JOHNNY: No mammog raphic eviden ce of malign hussein. RECOMM ENDATI ON: Annual mammog raphic screen ing BI-RAD S: 1 (Negat aubrey) Lay letter mailed to jhoana t WSN: [id number] Orderi ng Physic lamin: Ishmael Gutierrez Dictat ed By: Olga Lidia Hewitt MD Dictat ed Date/T maeve: 2:39 pm Review ed By: Olga Lidia Hewitt MD Signed By: Olga Lidia Hewitt MD Signed Date/T maeve: 2:39 pm Transc ribed By: CSB Transc riptio n Date/T maeve: 2:37 pm Birads : Jhoana t Class: Outpat ient [facility] (Outpt Imaging) [address] , [place], [address], 05/12/2024 09:52:54 07/24/19 25 07/23/2024 XR, chest , 2 view Examin ation: Chest perfor med on 07/23/19 25. Histor y: Atypic al pneumo kvng. Findin gs: Fronta l and latera l views of the chest are compar ed to a prior study dated 018. The cardia c and medias tinal silhou ettes are within normal limits . The lungs are clear. Scolio sis within the spine is demons trated . There is a right should er arthro plasty . Impres johnny: There is no acute cardio pulmon zenia diseas e. WSN: [id number] Orderi ng Physic lamin: Ishmael Gutierrez Dictkolby ed By: Fatuma Jernigan MD Dictat ed Date/T maeve: 8:38 am Review ed By: Fatuma Jernigan MD Signed By: Fatuma Jernigan MD Signed Date/T maeve: 8:38 am Transc ribed By: FILIPE Transc ribed Date/T maeve: 8:38 am Jhoana carlson Class: Outpat ient [facility] (Outpt Imaging) [address] [place] [address], [address], 09/26/2024 11:53:25 08/01/1907/26/2024 DEXA, axial skele ton Name:Ashok Ely t ID: [id number] Age:69 years Sex:Fe male Ethnic ity:Wh ite Date of : [birth year] Reason : M85.80 DISORD ER OF BONE; Clinic al Questi on(s): Other: Referr ing Provid er:Majo epps MD Study: Dexa Bone Densit y (Axial ) Bone Densit y: Region BMD T-Scor e Z-Scor e Classi ficati on AP Spine 0.904 -1.6 0.6 Osteop enia TOTAL HIP 0.688 -2.1 -0.5 Osteop enia FEM NECK 0.650 -1.8 0.0 Osteop enia 10-yea r Fractu re Risk: Fractu re Risk Not Report ed: FRAX not report ed becaus e: Prior hip or verteb ral fractu re Treate d for osteop orosis RATE OF CHANGE (SPINE ): BMD values have increa sed 6.4% from previo us BMD values have increa sed 9.4% from baseli ne RATE OF CHANGE (TOTAL HIP): BMD values have decrea sed 3.8% from previo us BMD values have decrea sed 13.7% from baseli ne RATE OF CHANGE (FEMOR AL NECK): BMD values have increa sed 3.2% from previo us BMD values have decrea sed 7.7% from baseli ne Impres johnny: The patien t has osteop enia as determ ined by WHO criter ia. WSN: [id number] Orderi ng Physic lamin: Ishmael Gutierrez Dictat ed By: Olga Lidia Hewitt MD Dictat ed Date/T maeve: 7:58 am Review ed By: Olga Lidia Hewitt MD Signed By: Olga Lidia Hewitt MD Signed Date/T maeve: 7:58 am Transc ribed By: CSB Transc ribed Date/T maeve: 7:57 am Patien t Class: Outpat ient [facility] (Outpt Imaging) [address] [place], [address], 09/26/2024 11:53:25 10/19/19 25 10/17/2024 nm stres s test with myoca rdial perfu johnny No observ ation record ed. [facility] [address] [place], [address], 10/19/2024 21:48:56 Result Notes None recorded. Problems Name Problem SNOMED Code Status Onset Date Resolution Date Notes Provider Name and Address Organization Details Recorded Time Swollen legs Completed 04/08/2018 Ishmael Saleem MD [address], [place], [address] , [facility] [place] 8 10:45:56 [place] ht [id number] Completed 03/23/2015 Ishmael Saleem MD [address], [place], [address] , [facility] 6 20:57:21 Costal chondrit is [id number] Completed 03/24/2016 Ishmael Saleem MD [address], [place], [address] , [facility] 6 09:05:59 Diarrhea [id number] Completed 03/23/2015 Ishmael Saleem MD [address], [place], [address] , [facility] 6 20:57:21 Colitis 70543405 Completed 201404/08/2018 Ishmael Saleem MD [address], [place], [address] , [facility] 8 10:46:54 Spinal stenosis of lumbar region 01525755 Active mod/radames re facet mediated foramina l stenosis Not Available [facility] 2 10:01:08 Osteopen ia 175877276 Completed 201401/01/2018 Ishmael Saleem MD [address], [place], [address] , [facility] 5 16:56:53 Pain of shoulder region 73884895 Completed 03/24/2016 Ishmael Saleem MD [address], [place], [address] , [facility] 6 08:59:28 Closed fracture of clavicle 76634212 Completed 04/03/2017 Ishmael Saleem MD [address], [place], [address] , [facility] 7 09:38:42 Basal cell carcinom a of skin 033315740 Active 2014 Not Available [facility] 2 10:01:08 Lumbosac ral radiculi tis 78357534 Active 2016 Not Available [facility] 2 10:01:08 Neuralgi a 03614918 Active 2016 left L5 Not Available [facility] 2 10:01:08 Hypercho lesterol emia 04936839 Active 2016 Not Available [facility] 2 10:01:08 Osteoart hritis of joint of hand 98532573 Active 2016 Not Available [facility] 2 10:01:07 Atrial septal aneurysm 71418188 Active 2017 Not Available [facility] 2 10:01:08 Exertion al hyperten johnny 947242516 Completed 201707/19/2019 Ishmael Saleem MD [address], [place], [address] , [facility] 0 10:05:18 Abnormal ity of atrial septum 908580113 Active 2017 Not Available [facility] 2 10:01:08 Osteopor osis 67621691 Completed 201708/01/2024 Ishmael Saleem MD [address], [place], [address] , [facility] 5 16:56:42 Supraven tricular tachycar inder 7631000 Active 2017 Not Available [facility] 2 10:01:08 Left atrial enlargem ent 51151557238 109 Active 2017 Not Available [facility] 2 10:01:07 Tricuspi d valve regurgit ation 573733796 Active 2017 mild Not Available [facility] 2 10:01:08 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 468044326 Completed 201707/19/2019 Ishmael Saleem MD [address], [place], [address] , [facility] 0 10:08:31 Lymphocy tic-plas macytic colitis Active 2017 Not Available [facility] 2 10:01:07 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 261748336 Active 2017 Not Available [facility] 2 10:01:08 Generali zed anxiety disorder 36219917 Active 2018 Not Available [facility] 2 10:01:08 First degree atrioven tricular block 506945669 Active 2019 Not Available [facility] 2 10:01:08 History of squamous cell carcinom a of skin 382584990 Active 2019 Not Available [facility] 2 10:01:08 Edema of lower extremit y 695997857 Active 2019 Not Available [facility] 2 10:01:08 Fracture of vertebra l column 23230196 Active 2019 insuffic iency fx anterior S2 Not Available [facility] 2 10:01:07 Internal hemorrho ids 65458937 Active 2021 Ishmael Saleem MD [address] [address], [place], [address] , [facility] 2 13:01:18 Atrial tachycar inder 225652339 Active 2021 Ishmael Saleem MD [address] [address], [place], [address] , [facility] 2 06:40:20 Arthriti s of facet joint of lumbar spine 50541488237 956903 Active 2021 Ishmael Saleem MD [address] [address], [address] , [facility] 2 19:48:53 Pain of right shoulder joint 12160806137 790336 Completed 202202/24/2023 Ishmael Saleem MD [address] [address], [place], [address] , [facility] 3 13:32:20 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 67294772364 797824 Active 2022 Ishmael Saleem MD [address] [facility] [address], [place], [address] , [facility] 3 13:42:55 Osteoart hritis of left knee joint 61031884323 9109 Active 2022 Ishmael Saleem MD [address] [facility] [address], [place], [address] , [facility] 3 16:19:02 Inflamma tory disease of liver 049210110 Active 2022 Ishmael Saleem MD [address] [facility] [address], [place], [address] , [facility] 3 11:24:45 Left atrial dilatati on 757842328 Active 2023 severe Ishmael Saleem MD [address] [facility] [address], [place], [address] , [facility] 4 13:22:53 Esophage al dysmotil ity 972378356 Active 2023 Ishmael Saleem MD [address] [facility] [address], [place], [address] , [facility] 4 21:46:06 Disorder of cervical spine 329343449 Active 2023 Ishmael Saleem MD [address] [facility] [address], [place], [address] , [facility] 4 21:47:09 Terminal esophage al web 47959156 Active 2023 Ishmael Saleem MD [address] [facility] [address], [place], [address] , [facility] 4 21:47:24 Collagen ous colitis 32959289 Active 2024 Ishmael Saleem MD [address] [facility] [address], [place], [address] , [facility] 5 21:07:57 Hyponatr emia 38508780 Active 2024 Ishmael Saleem MD [address] [facility] [address], [place], [address] , [facility] 5 13:13:04 C-reacti ve protein above referenc e range 81214379672 9104 Active 2024 Ishmael Saleem MD [address] [facility] [address], [place], [address] , [facility] 5 13:13:06 Osteopen ia 467699990 Active 2014 Ishmael Saleem MD [address] [facility] [address], [place], [address] , [facility] 5 16:56:53 Essentia l hyperten johnny 18519937 Active 2024 Ishmael Saleem MD [address] [address], [place], [address] , [facility] 5 12:33:39 Problem Notes None recorded. Procedures Surgical History Date Name Laterality Status Provider Name and Address Organization Details Recorded Time 025 radionuclide imaging of perfusion of myocardium under exercise stress completed Ishmael Saleem MD [address] [address], [place], [address], [facility] 10/19/2024 21:48:05 024 Most Recent Mammogram completed Nel Mills [facility] 04/27/2024 08:49:50 024 Echo transthoracic completed Ishmael Saleem MD [address] [address], [place], [address], [facility] 12/04/2023 13:23:50 023 reverse prosthetic total arthroplasty of right shoulder completed Nel Mills [facility] 10/16/2022 10:16:57 01/06/2 023 injection into shoulder joint completed Ishmael Saleem MD [address] [address], [place], [address], [facility] 07/05/2022 09:43:07 022 injection into lumbar epidural space completed Ishmael Saleem MD [address] [address], [place], [address], [facility] 05/08/2022 09:19:18 022 Most Recent Bone Density completed Concepción Ortega [facility] 04/11/2024 09:44:16 022 Date of Last Colonoscopy completed Samreen Castillo [place] [facility] 10/31/2021 10:30:30 022 colonoscopy completed Ishmael Saleem MD [address] [address], [place], [address], [facility] 04/11/2024 10:27:00 021 Mammogram Diagnostic Bilateral completed Ramya Craig [facility] 06/06/2021 11:20:40 021 stress echocardiography completed Ishmael Saleem MD [address] [address], [place], [address], [facility] 09/26/2024 12:04:10 021 Six-Item Cognitive Test completed Bruna Haywood [place] [facility] 10/23/2020 13:20:08 020 Mini-Cog Test completed Samreen Castillo [place] [facility] 07/19/2019 09:55:29 018 Unlisted spec derm svc/px completed Ishmael Saleem MD [address] [address], [place], [address], [facility] 04/08/2018 10:44:06 018 Cardiac Surgery completed Ishmael Saleem MD [address], [address], [facility] 04/08/2018 10:38:17 018 Echo transthoracic completed Ishmael Saleem MD [address], [place], [address], [facility] 02/08/2018 18:29:04 018 Dxa bone density opal vrt fx completed Samreen Castillo [place] [facility] 04/08/2018 10:23:38 018 Hysterectomy completed Bruna Haywood [place] [facility] 10/23/2020 13:13:51 017 Total hysterectomy completed Samreen Castillo [place] [facility] 04/03/2017 09:15:46 015 Sigmoidoscopy and biopsy completed Ishmael Saleem MD [address] [facility], [place], [address], [facility] 11/01/2014 05:37:06 013 Date of Last Pap Smear completed Ishmael Saleem MD [address], [place], [address], [facility] 03/23/2015 14:50:41 012 Colonoscopy completed Samreen Castillo [place] [facility] 03/23/2015 14:16:39 Tubal Ligation completed Samreen Castillo [place] [facility] 04/03/2017 09:18:49 Hemorrhoidectomy completed Bruna Haywood [place] [facility] 10/23/2020 13:13:51 Hysterectomy completed Concepción Ortega [place] [facility] 04/11/2024 09:43:15 Imaging Results Imaging Date Name Status LastModified by Organization Details LastModified Time 10/11/2023 CT, head + brain, w/o contrast completed [facility] (Medical Records) [address] [place] [address], [place], [address], 10/14/2023 20:33:28 10/30/2023 trans-thoracic echocardiogram (TTE) (PROC) completed [facility] Cardiology Diagnostic Testing [address] [facility], [place], [address], 04/11/2024 10:09:32 03/17/2024 barium swallow study completed [facility] Diagn[facility] Imaging Dept [address] [facility], [place], [address], 04/11/2024 10:09:32 04/26/2024 MAMMO, screening, bilateral completed [facility] [address], [place], [address], 05/12/2024 09:52:54 04/26/2024 MAMMO, screening, digital, bilateral completed [facility] (Outpt Imaging) [address] [place], [address], 05/12/2024 09:52:54 07/23/2024 XR, chest, 2 view completed [facility] (Outpt Imaging) [address] [place], [address], 09/26/2024 11:53:25 07/26/2024 DEXA, axial skeleton completed [facility] (Outpt Imaging) [address] [place], [address], 09/26/2024 11:53:25 10/17/2024 nm stress test with myocardial perfusion completed [facility] [address] [place], [address], 10/19/2024 21:48:56 Procedure Notes None recorded. Medical Equipment None Reported. Allergies Allergen ID Allergen Name Allergen Category Reaction Reaction Severity Criticality Documentation Date Start Date Code Code System Note Provider Name and Address Organization Details Recorded Time 36621 codeine medicatio n nausea mild Not available 03/20/2014 2670 RxNorm [facility] 4 13:22:46 Medications Name Sig Start Date Stop Date Status Note LastModified by Organization Details LastModified Time cyclobenz aprine 10 mg tablet Take 1 tablet every day by oral route for 7 days. 12/10 completed trial of tramadol , will avoid for potentia l drug interact ion Not Available Not Available Not Available amoxicill in 500 mg capsule TAKE 4 CAPSULES BY MOUTH 1 HOUR BEFORE APPOINTM ENT active Not Available Not Available No t Available prednison e 10 mg tablet Tapering dose by mouth: 5 daily for 2d, then 4 daily for 2d, then 3 daily for 2d, the 2 daily for 2d, the 1 daily for 2d. 12/28 completed Not Available Not Available Not Available doxycycli ne hyclate 100 mg capsule Take 1 capsule twice a day by oral route for 10 days. 07/19 completed Not Available Not Available Not Available atorvasta tin 10 mg tablet Take 1 tablet every day by oral route for 90 days. active Not Available Not Available No t Available azithromy jayne 250 mg tablet active Not Available Not Available No t Available diltiazem CD 180 mg capsule,e xtended release 24 hr TAKE 1 CAPSULE BY MOUTH EVERY DAY active Not Available Not Available No t Available fluconazo le 150 mg tablet Take 1 tablet every day by oral route for 7 days. 07/19 completed Not Available Not Available Not Available benzonata te 200 mg capsule TAKE 1 CAPSULE 3 TIMES A DAY BY ORAL ROUTE NEEDED FOR 7 DAYS, FOR COUGH. 09/26 completed Not Available Not Available Not Available valacyclo vir 1 gram tablet TAKE 2 TABLETS BY MOUTH EVERY 12 HOURS BY NEEDED FOR 1 DAY. 10/23 completed Not Available Not Available Not Available diltiazem CD 240 mg capsule,e xtended release 24 hr TAKE 1 CAPSULE BY MOUTH 1 TIME EACH DAY. active Not Available Not Available No t Available betametha sone, augmented 0.05 % topical cream APPLY ENOUGH TO COVER TO LEGS 2X DAILY FOR 2 WEEKS. USE FOR 2 WEEKS ON, 1 WEEK OFF REPEAT IF NEEDED 10/17 completed Not Available Not Available Not Available fluoroura cil 5 % topical cream 07/02 completed Not Available Not Available Not Available fluoxetin e 10 mg tablet TAKE 3 TABLETS BY MOUTH EVERY DAY 05/08 completed taking 2 tablets daily Not Available Not Available Not Available gabapenti n 400 mg capsule 10/23 completed Not Available Not Available Not Available Tylenol Arthritis Pain 650 mg tablet,ex tended release 2 tablets 3 times a day by oral route. 2023 active Not Available Not Available Not Avai lable diphenoxy late-atro pine 2.5 mg-0.025 mg tablet TAKE 2 TABLETS BY MOUTH 4 TIMES A DAY 07/02 completed Not Available Not Available Not Available Remicade 100 mg intraveno us solution INFUSE 5 MG/KG OVER NO LESS THAN 2 HOUR(S) BY INTRAVEN OUS ROUTE DIRECTED 02/24 completed Not Available Not Available Not Available sulfameth oxazole 800 mg-trimet hoprim 160 mg tablet Take 1 tablet every 12 hours by oral route for 10 days. 07/19 completed Not Available Not Available Not Available peg-elect rolyte solution 420 gram oral solution 10/24 completed Not Available Not Available Not Available tramadol 50 mg tablet TAKE 2 TABLETS 3 TIMES A DAY NEEDED FOR 2 DAYS 10/17 completed Not Available Not Available Not Available acetamino phen 500 mg tablet TAKE 2 TABLETS BY MOUTH EVERY 8 HOURS AROUND THE CLOCK FOR PAIN DIRECTED . 10/17 completed Not Available Not Available Not Available triamtere ne 37.5 mg-hydroc hlorothia zide 25 mg capsule TAKE 1 CAPSULE BY MOUTH EVERY DAY FOR 90 DAYS active Not Available Not Available No t Available amoxicill in 500 mg tablet TAKE 4 TABLETS 1 HOUR PRIOR TO DENTAL PROCEDUR E DIRECTED 09/26 completed Not Available Not Available Not Available oxycodone -acetamin ophen 5 mg-325 mg tablet 04/03 completed Not Available Not Available Not Available propranol ol 10 mg tablet 04/08 completed Not Available Not Available Not Available hydromorp kirill 2 mg tablet TAKE 1 TABLET BY MOUTH EVERY 4 HOURS NEEDED FOR PAIN 10/17 completed Not Available Not Available Not Available desonide 0.05 % topical ointment 10/23 completed Not Available Not Available Not Available aspirin 325 mg tablet,de layed release TAKE 1 TABLET BY MOUTH EVERY DAY FOR 14 DAYS STARTING THE DAY AFTER SURGERY DIRECTED 10/17 completed Not Available Not Available Not Available calcitoni n (salmon) 200 unit/actu ation nasal spray TAKE 1 SPRAY(S) EVERY DAY BY NASAL ROUTE DIRECTED . 10/23 completed Not Available Not Available Not Available benzonata te 100 mg capsule Take 1 capsule 3 times a day by oral route as needed. 07/02 completed Not Available Not Available Not Available cephalexi n 500 mg capsule 08/19 completed Not Available Not Available Not Available erythromy jayne 5 mg/gram (0.5 %) eye ointment APPLY TWICE A DAY INTO RIGHT EYE DIRECTED 04/11 completed Not Available Not Available Not Available hyoscyami ne sulfate 0.125 mg tablet TAKE 1 TABLET BY MOUTH FOUR TIMES A DAY TAKE BEFORE MEALS AND AT BED 07/02 completed Not Available Not Available Not Available oseltamiv ir 75 mg capsule TAKE 1 CAPSULE BY MOUTH EVERY 12 HOURS 07/02 completed Not Available Not Available Not Available fluoxetin e 20 mg tablet Take 1 tablet every day by oral route for 30 days. 02/24 completed Not Available Not Available Not Available Fluticaso ne Propionat e (Nasal) 50 mcg/DOSE inhaler [place] 1 spray twice a day by intranas al route. 07/02 completed Not Available Not Available Not Available flecainid e 50 mg tablet Take 1 tablet every day by oral route for 30 days. 06/02 completed Not Available Not Available Not Available nystatin- triamcino lone 100,000 unit/g-0. 1 % topical cream Apply 1 applicat ion every day by topical route as needed for 30 days. 10/23 completed Not Available Not Available Not Available fluoxetin e 10 mg capsule 12/25 completed Not Available Not Available Not Available docusate sodium 100 mg capsule TAKE 1 CAPSULE BY MOUTH UP TO TWO TIMES A DAY NEEDED FOR CONSTIPA TION WHILE TAKING NARCOTIC MEDICATI ONS DIRECTED . 10/17 completed Not Available Not Available Not Available gabapenti n 300 mg capsule TAKE 1 CAPSULE BY MOUTH THREE TIMES A DAY NEEDED active Not Available Not Available No t Available diltiazem CD 120 mg capsule,e xtended release 24 hr TAKE 1 CAPSULE BY MOUTH EVERY DAY 04/09 completed Not Available Not Available Not Available codeine 10 mg-guaife nesin 100 mg/5 mL oral liquid Take 10 mL every 4 hours by oral route for 4 days. 05/08 completed Not Available Not Available Not Available magnesium 250 mg tablet Take 1 tablet every day by oral route. active Not Available Not Available No t Available furosemid e 20 mg tablet TAKE 1 TABLET BY MOUTH EVERY DAY DIRECTED 04/09 completed Not Available Not Available Not Available gabapenti n 100 mg capsule Take 100 mg by oral route. 10/23 completed Not Available Not Available Not Available budesonid e DR - ER 3 mg capsule,d elayed,ex tended release TAKE 3 CAPSULE BY MOUTH ONCE A DAY IN THE MORNING 07/02 completed Not Available Not Available Not Available morphine 15 mg soluble tablet Take 0.5 tablets every day by oral route as needed for 20 days. 10/23 completed Not Available Not Available Not Available ibuprofen 600 mg tablet Take 1 tablet as needed by oral route for 10 days. 10/12 completed Not Available Not Available Not Available scopolami ne 1 mg over 3 days transderm al patch Apply 1 patch every 72 hours by transder mal route as needed for 12 days. 07/19 completed Not Available Not Available Not Available methylpre dnisolone 4 mg tablets in a dose pack Take 1 dose pk by oral route. 08/19 completed Not Available Not Available Not Available morphine 15 mg immediate release tablet Take 0.5 tablets every day by oral route as needed. 10/23 completed Not Available Not Available Not Available fluoxetin e 20 mg capsule TAKE 1 CAPSULE BY MOUTH EVERY DAY active Not Available Not Available No t Available fluticaso ne propionat e 50 mcg/actua tion nasal spray,ana luisa pension 1 SPRAY INTRANAS ALLY 2 TIMES A DAY 07/02 completed Not Available Not Available Not Available doxycycli ne hyclate 100 mg tablet TAKE 1 TABLET BY MOUTH TWICE A DAY FOR 10 DAYS 09/26 completed Not Available Not Available Not Available naproxen 500 mg tablet Take 1 tablet twice a day by oral route for 15 days. 10/23 completed Not Available Not Available Not Available amoxicill in 875 mg-potass ium clavulana te 125 mg tablet TAKE 1 TABLET BY MOUTH EVERY 12 HOURS FOR 10 DAYS 10/17 completed Not Available Not Available Not Available oxycodone 5 mg tablet TAKE 1 TABLET BY MOUTH EVERY 4 HOURS NEEDED FOR PAIN DIRECTED (DO NOT DRIVE WHILE ON THIS MEDICATI ON) 10/17 completed Not Available Not Available Not Available Adult Low Dose Aspirin 81 mg tablet,de layed release Take 1 tablet every day by oral route. active Not Available Not Available No t Available escitalop carlos manuel 10 mg tablet Take by oral route for 30 days. 04/08 completed Not Available Not Available Not Available Saline Nasal 0.65 % spray aerosol TAKE 1 SPRAY INTO EACH NOSTRIL ONCE DAILY 10/23 completed Not Available Not Available Not Available cholestyr amine (with sugar) 4 gram powder for susp in a packet USE 1-2 PACKET DISSOLVE D IN WATER ONCE A DAY 05/08 completed Not Available Not Available Not Available nitrofura ntoin monohydra te/macroc rystals 100 mg capsule Take 1 capsule as needed by oral route for 7 days. 04/03 completed Not Available Not Available Not Available DILT-XR 120 mg capsule, extended release Take 1 capsule every day by oral route for 30 days. 06/02 completed Not Available Not Available Not Available bromfenac 0.09 % eye drops INSTILL 1 DROP ONCE DAILY TO THE LEFT EYE FOR 6 WEEKS DIRECTED 04/09 completed Not Available Not Available Not Available Dyazide . 10/23 completed Not Available Not Available Not Available Calcium 500 + D 1 tab daily orally active Not Available Not Available No t Available risedrona te 150 mg tablet TAKE 1 TABLET BY MOUTH EVERY MONTH active Not Available Not Available No t Available multivita min and minerals no.11-fol ic acid 5 mg tablet Take 1 tablet every day by oral route. active Not Available Not Available No t Available bimatopro st 0.03 % drops with applicato r, eyelash base Apply 1 drop every day by topical route for 70 days. active Not Available Not Available No t Available magnesium 100 mg (as glycinate ) tablet Take 2 mg every day by oral route. 05/12 completed Not Available Not Available Not Available Creon 24,000-76 ,000-120, 000 unit capsule,d elayed release TAKE ONE TABLET WITH SNACKS AND TWO TABLETS WITH MEALS 07/02 completed Not Available Not Available Not Available Aleve 220 mg capsule Take 1 capsule twice a day by oral route for 14 days. 2014 active Not Available Not Available Not Avai lable Uceris 9 mg tablet, extended release 04/03 completed Not Available Not Available Not Available Creon 36,000 unit-114, 000 unit-180, 000 unit capsule,d elayed release TAKE 2 CAPSULES BY MOUTH FOUR TIMES A DAY 04/09 completed Not Available Not Available Not Available Flonase Sensimist 27.5 mcg/actua tion nasal spray,ana luisa pension TAKE 2 SPRAYS EVERY DAY BY NASAL ROUTE AT BEDTIME FOR 30 DAYS. 10/23 completed Not Available Not Available Not Available Shingrix (PF) 50 mcg/0.5 mL intramusc ular suspensio n, kit ADM 0.5ML IM UTD 12/28 completed Not Available Not Available Not Available Tiadylt ER 120 mg capsule,e xtended release TAKE 1 CAPSULE BY MOUTH EVERY DAY 10/23 completed Not Available Not Available Not Available Fluad Quad (65yr up)(PF) 60 mcg (15 mcg x 4)/0.5mL IM syringe PHARMACY ADMINIST ERED 10/23 completed Not Available Not Available Not Available BinaxNOW COVID-19 Ag Self Test kit 10/17 completed Not Available Not Available Not Available Vitals Date Recorded Body height Body mass index (BMI) Body weight Heart rate Oxygen saturation Oxygen saturation in Arterial blood by Pulse oximetry Body temperature Systolic blood pressure Diastolic blood pressure Provider Name and Address Organization Details Last Updated DateTime 4 158.12 cm 25.4 kg/m2 23421.9 3 g 66 /min 98 % 98 % 97.7 [degF] 126 mm[Hg] 71 mm[Hg] Chacha jarquin MA [facility] 4 13:38:26 Date Recorded Body height Body mass index (BMI) Body weight Heart rate Oxygen saturation Oxygen saturation in Arterial blood by Pulse oximetry Body temperature Systolic blood pressure Diastolic blood pressure Provider Name and Address Organization Details Last Updated DateTime 4 158.12 cm 23.8 kg/m2 59303.6 g 66 /min 97 % 97 % 97.5 [degF] 145 mm[Hg] 77 mm[Hg] Justino perez MA [facility] 4 09:55:31 Date Recorded Systolic blood pressure Diastolic blood pressure Provider Name and Address Organization Details Last Updated DateTime 04/11/2024 137 mm[Hg] 83 mm[Hg] Ishmael Saleem MD [address] [address], [place], [address], [facility] 04/11/2024 10:36:39 Date Recorded Body height Body mass index (BMI) Body weight Heart rate Oxygen saturation Oxygen saturation in Arterial blood by Pulse oximetry Body temperature Systolic blood pressure Diastolic blood pressure Provider Name and Address Organization Details Last Updated DateTime 4 158.12 cm 23.4 kg/m2 35683.8 2 g 73 /min 98 % 98 % 97.2 [degF] 118 mm[Hg] 62 mm[Hg] [facility] 4 09:34:39 Date Recorded Body height Body mass index (BMI) Body weight Heart rate Body temperature Systolic blood pressure Diastolic blood pressure Provider Name and Address Organization Details Last Updated DateTime 5 158.12 cm 23 kg/m2 97239.4 4 g 69 /min 97 [degF] 152 mm[Hg] 70 mm[Hg] [facility] 5 11:23:54 Date Recorded Oxygen saturation Oxygen saturation in Arterial blood by Pulse oximetry Provider Name and Address Organization Details Last Updated DateTime 07/23/2024 97 % 97 % Ishmael Saleem MD [address] [address], [place], [address], [facility] 07/23/2024 11:42:45 Date Recorded Body height Body mass index (BMI) Body weight Heart rate Oxygen saturation Oxygen saturation in Arterial blood by Pulse oximetry Body temperature Systolic blood pressure Diastolic blood pressure Provider Name and Address Organization Details Last Updated DateTime 5 158.12 cm 23.3 kg/m2 37944.6 2 g 56 /min 95 % 95 % 97.2 [degF] 148 mm[Hg] 65 mm[Hg] [facility] 11:46:15 Date Recorded Systolic blood pressure Diastolic blood pressure Provider Name and Address Organization Details Last Updated DateTime 09/26/2024 141 mm[Hg] 68 mm[Hg] Ishmael Saleem MD [address] [facility] [address], [place], [address], [facility] 09/26/2024 12:10:41 Social History Question Answer Notes LastModified by Organizat ion Details LastModified Time Tobacco Smoking Status Former Smoker 1975 Concepción Alcantardillan Ortega [place] null, [facility] 09/27/2024 06:53:19 Do You Have An Advance Directive? Yes HCP, SonArvin, Sister Geraldine [email or web address] Information not available 05/08/2022 What Is Your Level Of Alcohol Consumption? Occasional Information not available 04/11/2024 Is Blood Transfusion Acceptable In An Emergency? Yes Information not available 03/23/2015 What Is Your Level Of Caffeine Consumption? Occasional Information not available 02/24/2023 How Much Tobacco Do You Chew? None Information not available 04/08/2018 Are You Currently Employed? Yes [employer] Information not available 10/23/2020 What Type Of Diet Are You Following? REGULAR Information not available 03/20/2014 Which Illicit Or Recreational Drugs Have You Used? None Information not available 03/23/2015 Do You Or Have You Ever Used E-cigarettes Or Vape? Never Used Electronic Cigarettes Information not available 05/08/2022 What Is Your Occupation? [employer] Information not available 04/11/2024 When Did You Quit Smoking? 16+yearssincel astcijosseline [email or web address] Information not available 10/23/2020 Hard Of Hearing Or Deaf In One Or Both Ears? No [email or web address] Information not available 05/08/2022 Live Alone Or With Others? Alone [email or web address] Information not available 05/08/2022 Do You Take Precautions To Prevent Distracted Driving? Yes Information not available 03/23/2015 How Often Do You Need To Have Someone Help You When You Read Instructions, Pamphlets, Or Other Written Material From Your Doctor Or Pharmacy? Never Information not available 03/23/2015 Have You Served In The ? No [email or web address] Information not available 03/24/2016 Have You Or Anyone In Your Household Had Any Of The Following Symptoms In The Last 14 Days: Sore Throat, Cough, Chills, Body Aches For Unknown Reasons, Shortness Of Breath For Unknown Reasons, Loss Of Smell, Loss Of Taste, Fever At Or Greater Than 100 Degrees Fahrenheit? No Information not available 12/29/2019 Are You Or Anyone In Your Household A Health Care Provider Or Emergency Responder? No Information not available 12/29/2019 To The Best Of Your Knowledge Have You Been In Close Proximity To Any Individual Who Tested Positive For COVID-19? No Information not available 12/29/2019 *AWV ONLY* Are You Presently Prescribed Opioid Medication By PCP Or Specialist? If YES -Provider Assess The Benefit For Other, Non-opioid Pain Therapies Instead, Even If The Patient Does Not Have OUD But Is Possibly At Risk. No Information not available 10/31/2021 Have You Recently Traveled To A COVID-19 High Risk Area Or Gathering In The Last 10 Days? No [email or web address] Information not available 10/23/2020 What Was The Date Of Your Most Recent Tobacco Screening? 09/26/2024 Information not available 09/27/2024 How Many Children Do You Have? 2 Sons: Edgardo/Madhu george Information not available 10/23/2020 What Is Your Current Pack Years? 10packyears Information not available 09/27/2024 Do You Use Your Seat Belt Or Car Seat Routinely? Yes [email or web address] Information not available 10/24/2021 Seat Belts Used Routinely Yes [email or web address] Information not available 05/08/2022 Are You Sexually Active? No Information not available 03/20/2014 Smoke Alarm In Home Yes [email or web address] Information not available 05/08/2022 Do You Have Smoke And Carbon Monoxide Detectors In Your Home? Yes Information not available 10/31/2021 At What Age Did You Start Smoking Tobacco? 1971 [email or web address] Information not available 09/27/2024 Are You Passively Exposed To Smoke? No Information not available 03/20/2014 Do You Or Have You Ever Used Smokeless Tobacco? Never Used Smokeless Tobacco Information not available 07/19/2019 How Much Tobacco Do You Smoke? 1 PPD Information not available 04/03/2017 Do You Use Any Illicit Or Recreational Drugs? No [email or web address] Information not available 05/08/2022 Do You Use Sunscreen Routinely? Yes Information not available 03/20/2014 How Many Years Have You Smoked Tobacco? 5 Information not available 09/27/2024 Do You Or Have You Ever Used Any Other Forms Of Tobacco Or Nicotine? No [email or web address] Information not available 05/08/2022 Sex: Female Functional Status Question Answer Note LastModified by Organization D etails LastModified Time Are you able to walk? YESWOREST [email or web address] Information not available 05/08/2022 Are you able to care for yourself? Yes Information not available 03/20/2014 What is your exercise level? Moderate Information not available 03/20/2014 Mental Status None recorded. Family History Relationship Description Onset Age of this Age Resolved Age Notes LastModified by Organization Details LastModified Time Mother Harmful pattern of use of alcohol abolcun Not available 2015 13:55:54 Mother Depressive disorder [email or web address] Not available 2015 13:55:54 Mother Osteoporosis abolcun Not availa ble 08/23/2015 13:55:54 Maternal Grandmother Malignant tumor of colon abolcun Not available 2015 13:55:54 Father Amyotrophic lateral sclerosis [email or web address] Not available 2023 09:23:39 Sister Obese [email or web address] Not available 09:23:39 Sister Malignant melanoma [email or web address] Not available 2023 09:23:39 Sister Heart disease 60 [email or web address] Not available 09:43:20 Sister Atrial fibrillation [email or web address] Not available 09:23:39 Sister Asthma abolcun Not available 10:25:35 Sister Heart disease 55 [email or web address] Not available 09:43:21 Sister Obese [email or web address] Not available 09:23:39 Brother Atrial fibrillation [email or web address] Not available 09:23:39 Brother Malignant tumor of pancreas 78 [email or web address] Not available 2023 09:23:39 Brother Carcinoma of urinary bladder [email or web address] Not available 2023 09:23:39 Brother Pneumonia 78 [email or web address] Not avail able 07/23/2024 11:40:23 Brother Malignant neoplasm of urinary bladder [email or web address] Not available 07/23 11:40:46 Son Well adult Not available 05/12/2024 09:23:39 Son Well adult Not available 05/12/2024 09:23:39 Medical History Condition Response Coronary Artery Disease N Other N Gout N Kidney Stones N Blood Diseases N Hyperthyroidism N Breast Cancer N mrsa exposure N Depression Y COPD N Lung Disease N Hypothyroidism N Developmental or Behavioral Disorders N Defects or Inherited Disease N Breast Problem N Anesthesia Complications N Headaches/Migraines N Varicose Veins N Anxiety Disorder N Muscle, Joint, or Bone Problems N Obesity N Vision or Eye Problems N Arthritis N Head Injury/Concussion N Polyps N Infertility N Mental Disorder N Congenital Anomalies N Acid Reflux (GERD) N Cancer Y Stroke N ADHD N Endometriosis N High Cholesterol N Liver Disease N Headaches N Fibromyalgia N Kidney Disease N Heart Problems Y Ear or Hearing Problems N Hospitalizations N Thyroid Problems N GI Problems Y Developmental Delay N Acne N Skin Problems N Eating Disorder N Anemia N Constipation N Bladder Problems N Mental Illness N Ovarian Cancer N Diabetes N Bedwetting N Blood Transfusions N Seizures/Epilepsy N Heart Problems/Murmur N Tuberculosis N AIDS/HIV N Congestive Heart Failure (CHF) N Eczema N Diverticulitis N Abuse/Domestic Violence N Asthma N Allergies N Reflux/GERD N Hepatitis N Heart Disease N Pulmonary Embolism N Hypertension N Osteoporosis Y Chicken Pox N Autism Spectrum Disorder (ASD) N Gynecological History Statement/Question Response Date of Last Pap Smear 02/25/2013 Most Recent Mammogram 04/26/2024 Date of Last Colonoscopy 10/30/2021 Most Recent Bone Density 02/26/2022 Obstetrics History GPAL:G 0 P 0 0 0 0 Immunizations Vaccine Type Date Status Note Provider Ander juarez and Address Organization Details Recorded Time zoster live 5 completed Ramya awad [facility] 10/16/2021 14:42:10 Influenza, split virus, quadrivalent, PF 5 completed Ramya Craig null, [facility] 10/16/2021 14:42:11 Influenza, split virus, quadrivalent, preservative 8 completed Ramya Craig null, [facility] 10/16/2021 14:42:11 Influenza, split virus, quadrivalent, preservative 9 completed Ramya Craig null, [facility] 10/16/2021 14:42:11 zoster recombinant 9 completed Ramya Craig null, [facility] 10/16/2021 14:42:11 zoster recombinant 9 completed Ramya Craig null, [facility] 10/16/2021 14:42:11 COVID-19 vaccine, vector-nr, [id number], PF, 0.5 mL 1 completed JIA Grullon, [facility] 10/24/2021 14:12:50 Influenza, adjuvanted, quadrivalent, PF 1 completed JIA Grullon, [facility] 10/24/2021 14:12:50 COVID-19, mRNA, LNP-S, PF, 100 mcg/0.5mL dose or 50 mcg/0.25mL dose 1 completed JIA Rodríguez, [facility] 06/26/2022 14:48:47 COVID-19, mRNA, LNP-S, PF, 100 mcg/0.5mL dose or 50 mcg/0.25mL dose 2 [facility] 14:48:47 Influenza, adjuvanted, quadrivalent, PF 0 completed JIA Grullon, [facility] 10/24/2021 14:12:50 Influenza, split virus, quadrivalent, PF 7 completed JIA Grullon, [facility] 10/24/2021 14:12:50 COVID-19, mRNA, LNP-S, bivalent, PF, 50 mcg/0.5 mL or 25mcg/0.25 mL dose 2 completed Ramya awad, [facility] 10/16/2022 10:07:26 Influenza, high-dose, quadrivalent, PF 2 completed JIA Rodríguez, [facility] 06/26/2022 14:48:47 Tdap 5 completed JIA Rodríguez, [facility] 06/26/2022 14:48:47 Influenza, split virus, trivalent, PF 4 completed JIA Rodríguez, [facility] 06/26/2022 14:48:47 pneumococcal polysaccharide PPV23 1 completed JIA Rodríguez, [facility] 06/26/2022 14:48:47 Pneumococcal conjugate PCV 13 0 completed JIA Rodríguez, [facility] 06/26/2022 14:48:47 Influenza, high-dose, quadrivalent, PF 3 completed JIA Gerber, [facility] 04/03/2023 13:01:15 Pneumococcal conjugate PCV20, polysaccharide [id number] conjugate, adjuvant, PF 3 completed JIA Gerber, [facility] 04/03/2023 13:01:15 COVID-19, mRNA, LNP-S, PF, dimitry-sucrose, 30 mcg/0.3 mL 3 completed JIA Gerber, [facility] 04/03/2023 13:01:15 RSV, recombinant, protein subunit RSVpreF, adjuvant reconstituted, 0.5 mL, PF 3 completed JIA Gerber, [facility] 07/02/2023 09:50:58 Tdap 4 completed Chacha Wang MA null, [facility] 10/20/2023 13:38:43 Influenza, high-dose, trivalent, PF 4 completed Nel awad, [facility] 02/23/2024 10:03:09 COVID-19, mRNA, LNP-S, PF, 50 mcg/0.5 mL 4 completed Nel awad, [facility] 02/26/2024 08:43:49 Influenza, split virus, quadrivalent, PF 6 completed Not Available [facility] 07/09/2019 02:22:04 Past Encounters Encounter ID Performer Location Encounter Start Date Encounter Closed Date Diagnosis/Indication Diagnosis SNOMED-CT Code Diagnosis ICD10 Code Diagnosis Note [id number] Ishmael Saleem MD Main Office [address] [place] [address] 03/20/2014 12:59:35 03/20/2014 14:21:56 Adult health examination [id number] Will update immunizati on status, pt reports recent Tdap which we'll verify with old records, uncertain of history of varicalle exppsure to determine whether zostavax is appropriat e. Will screen based on risk factors. Regular dental and optho care advised as well as sunscren and seatblet use. Distracted driving discussed. Advance directives in place. Needs infl uenza immunization [id number] Swollen legs 649064514 c /w lymphedema . Will continue diuretic. Overweight 980415678 Bob g term potential health consuences discussed. [id number] Ishmael Saleem MD Main Office [address] [facility] [address] [facility] [place] [address] 07/14/2014 12:50:31 07/14/2014 13:23:12 Costal chondritis 05679071 Likely secondary to recent chest wall injury. Slowly improving with negative eval in ED for ischemia/P E. Advised to try NSAID and use other pain meds sparingly. Call if persistent /worse. [id number] FLORIAN Pierre Main Office [address] [address] [facility] [place] [address] 10/24/2014 15:33:47 10/24/2014 16:29:39 Diarrhea [id number] Diarrhea without abdominal pain x 10+ days, sx seem to be at night and has little to no sx during the day, may be irritable bowel, will get stool cultures and blood work, lomotil as needed at night to help with sx. Continue to stay well hydrated, may try BRAT type diet to see if this helps with sx. If all testing normal would refer to Dr. Hahn for further work-up. [id number] Ishmael Saleem MD Main Office [address] [address] [place] [address] 03/23/2015 14:02:38 03/23/2015 15:16:11 Adult health examination 723001738 Z00.00 Will update immunizati on status and screen based on risk factors. Regular dental and optho care advised as well as sunscren and seatblet use. Distracted driving discussed. Advance directives in place. Administra tion of diphtheria, pertussis, and tetanus vaccine 076712372 Z23 Swollen legs 115073148 M 79.89 c/w lymphedema . Will continue diuretic. [id number] Ishmael Saleem MD Main Office [address] [address] [place] [address] 08/23/2015 13:37:58 08/23/2015 14:54:35 Pain of shoulder region 43156508 M25.511 Suspect soft tissue (tendon vs bursa) mediated. Will see if xray shows anything, and ask ortho for opinion. [id number] Ishmael Saleem MD Main Office [address] [address] [place] [address] 03/24/2016 08:36:35 03/24/2016 09:27:14 Adult health examination 935214012 Z00.00 Will update immunizati on status, screening utd based on risk factors. Regular dental and optho care advised as well as sunscreen and seat belt use. Distracted driving discussed. Advance directives in place. Influenza vaccine needed [id number] 106 Z23 Spinal raymundo nosis of lumbar region 22768478 M48.06 Has history and now recurrent symptoms. Will refer back to PMR Osteopenia 744431063 M85 .80 Due for f/u next year [id number] Ishmael Saleem MD Main Office [address] [facility] [address] [place] [address] 04/03/2017 09:02:50 04/03/2017 09:55:49 Adult health examination 495977636 Z00.00 Will update immunizati on status, pt reports recent Tdap which we'll verify with old records, uncertain of history of varicalla exposure to determine whether zostavax is appropriat e. Will screen based on risk factors. Regular dental and optho care advised as well as sunscreen and seat blet use. Distracted driving discussed. Advance directives in place. Hand pain 83511551 M79.6 41 M79.642 ? OA vs CTS. Has seen Dr Orozco in the past for trigger finger, will refer back. Osteopenia 694779696 M85 .80 bnd will be arranged by policy issue clerk. Swollen legs 541330104 M 79.89 c/w lymphedema . Will continue diuretic. Hypercholesterolemia 136 83324 E78.01 Will reassess. [id number] Ishmael Saleem MD Main Office [address] [facility] [address] [place] [address] 10/12/2017 15:34:08 10/12/2017 16:37:59 Elevated blood-pressure reading without diagnosis of hypertension 740740561 R03.0 Not elevated today. Will see what BP is with stress testing. Palpitations 86651872 R0 0.2 Related to exercise with normal ECG. Will check labs and refer to exercise stress testing to rule out exercise induced tachyarrhy thmia. Exertional hypertension 325779651 I15.8 [id number] Ishmael Saleem MD Main Office [address] [facility] [address] [place] [address] 01/01/2018 13:02:31 01/01/2018 13:58:40 Plantar fasciitis 266846252 M72.2 Will try home PT, and INB/worse refer to podiatry. Anxiety 40677238 F41.1 Has appt with med prescriber next week. Seeing counselor. Osteoporosis 54839259 M8 1.[address] Krishna. [id number] Ishmael Saleem MD Main Office [address] [address] [place] [address] 04/08/2018 10:11:26 04/08/2018 11:05:05 Adult health examination 635363740 Z00.00 Immunizati on status utd, Shingrix advised via local pharmacy. Will screen based on risk factors. Regular dental and optho care advised as well as sunscreen and seat blet use. Distracted driving discussed. Advance directives in place. Varicella vaccination 68 849707 Z23 Supraventr icular tachycardia 5830651 I47.1 Has been seen by cards and had a traumatic ablation attempt. Off of all BB/CCB and feels better with anxiety treatment. Hypercholesterolemia 136 90200 E78.01 Will reassess, and discuss mgmt based on CVD risk score. Generalize d anxiety disorder 62602212 F41.1 Feeling better on 10mg, wants to see if higher dose affords further relief. Will f/u with psych for continuesd mgmt. Swollen legs 972252600 M 79.89 c/w lymphedema . Will continue dyazide only as both that and lasix are likely affording hyponatrem ia [id number] Janessa Gerber PA-C Main Office [address] [address] [place] [address] 06/02/2018 14:18:52 06/02/2018 14:59:21 Acute sinusitis 59464510 J01.90 Sart Abx as directed, nasal saline TID. Follow care instructio ns. Acute laryngitis 5953322 J04.0 [id number] Ishmael Saleem MD Main Office [address] [address] [place] [address] 08/19/2018 13:38:05 08/19/2018 14:49:05 Paronychia of finger [id number] L03.019 Pt will hold diuretic while on Bactrim. Will provide additional coverage for possible MRSA and simultaneo usly refer to derm in case this continues to be recalcitra nt to abx. Advised to call with any diarrhea/i ntolerance to abx. [id number] Ishmael Saleem MD Main Office [address] [place] [address] 07/19/2019 09:32:38 07/19/2019 10:33:48 Adult health examination 032130668 Z00.00 Immunizati on status updated. Will screen based on risk factors. Regular dental and optho care advised as well as sunscreen and seat blet use. Distracted driving discussed. Advance directives in place. Screening for malignant neoplasm of breast 211190742 Z12.39 Administra tion of pneumococcal vaccine 52464592 Z23 Supraventr icular tachycardia 6947415 I47.1 Well controlled on diltiazem Generalize d anxiety disorder 99547982 F41.1 Well controlled on current SSRI dose. Hypercholesterolemia 136 64324 E78.01 Will reassess, and discuss mgmt based on CVD risk score. Osteoporosis 77004906 M8 1.[address] Krishna. To have BND done in December Edema of l ower extremity 276694125 R60.0 Stable on diuretic regimen. Needs labs. [id number] Ishmael Saleem MD [facility] [address] [place] [address] 11/10/2019 11:33:35 11/10/2019 15:09:35 Counseling 367969041 Z71.9 Health advice, education or counseling done for COVID 19 Exposure t o viral disease 1734117031 30321 Z03.818 Asymptomat ic with moderate risk exposure 10 days ago and questionab le Ab testing result. Will arrange PCR swab and if negative advise routine quarantine precaution s. If positive, will isolate for 3 more days. Cough 48902237 R05 [id number] Tomasz Horton MD Main Office [address] [place] [address] 12/06/2019 13:46:01 12/06/2019 14:50:22 Low back pain 612138653 M54.5 Likely lumbar sprain due to overuse injury. Start Naprosyn BID, muscle relaxants, stretch exercises and heat 15 minutes 2-3 time daily. PT referral if not sign. imrpoved w/i 10-14 days. Lumbar sprain 882518811 S33.5XXA [id number] Tomasz Horton MD Telehealt [facility] [address] [address] [place] [address] 12/11/2019 13:30:30 12/12/2019 08:41:34 Low back pain 794540404 M54.5 [id number] Ishmael Saleem MD Main Office [address] [facility] [address] [place] [address] 12/29/2019 11:20:48 12/29/2019 12:27:23 Osteoporosis 17745151 M81.[address] Krishna. To have BND done January 04. Will start treatment with calcitonii n for both this and may help with pain control. Osteoporot ic fracture of sacral vertebra 4582872197 3997911 M80.08XD Will prescribe better walker as per PT recommenda tions. Continue current pain mgmt regimen. Will refill morphine if needed. Constipati on management discussed. Fracture o f vertebral column 22799687 T14.8XXD [id number] Ishmael Saleem MD Main Office [address] [address] [place] [address] 10/23/2020 13:04:56 10/23/2020 14:06:01 Adult health examination 157537076 Z00.00 Immunizati on status updated. Will screen based on risk factors. Regular dental and optho care advised as well as sunscreen and seat belt use. Distracted driving discussed. Advance directives in place. Hypercholesterolemia 136 91774 E78.01 Will reassess, and discuss mgmt based on CVD risk score. Screening for malignant neoplasm of breast 555708166 Z12.39 Supraventr icular tachycardia 6401959 I47.1 Well controlled on diltiazem Generalize d anxiety disorder 11581982 F41.1 Well controlled on current SSRI dose. Osteoporosis 07818511 M8 1.[address] Krishna. Edema of l ower extremity 957237620 R60.0 Stable on diuretic regimen. Needs labs. Administra tion of pneumococcal vaccine 86765382 Z23 [id number] Shakira Wayne MD Telehealt h [address] [facility] [address] [place] [address] 03/03/2021 12:51:33 03/04/2021 12:49:05 Viral upper respiratory tract infection 395018243 J06.9 Tylenol 15mg/kg for pain or fever q6h.Throat Lozenges,s alt water gargle,marizol quate hydration enforced,s nki sprays,Hon ey advised for cough alsohumidi fier use enforced.W ill test for covidIf no improvemen t on day 7 patient advised to call will send abxNo sob or confusion to suggest PNA at this time.Patie nt aware limitation of tele visit, red flag discussed and when to go to ed such as but not limited to SOB, CP, fever > 103. Exposure t o viral disease 8962601359 41767 Z03.818 [id number] Shakira Wayne MD Main Office [address] [place] [address] 10/23/2021 09:36:27 10/24/2021 08:38:47 [id number] Sylvester Mitchell MD Telehealt [facility] [address] [place] [address] 10/24/2021 08:34:10 10/25/2021 09:22:14 Upper respiratory infection 25332168 J06.9 Continue with symptomati c treatment. Cough 09119951 R05.9 Take codeine at night. Had some nausea in the past with pills but will try this again. [id number] Ishmael Saleem MD Main Office [address] [place] [address] 10/31/2021 10:19:38 10/31/2021 11:21:10 Adult health examination 780615273 Z00.00 Immunizati on status utd, flu advised in the Fall. Will screen based on risk factors. Regular dental and optho care advised as well as sunscreen and seat belt use. Distracted driving discussed. Advance directives in place. Hypercholesterolemia 136 02342 E78.01 Will reassess, and discuss mgmt based on CVD risk score. Screening for malignant neoplasm of breast 043311367 Z12.39 Supraventr icular tachycardia 8149918 I47.1 Well controlled on diltiazem Generalize d anxiety disorder 09516417 F41.1 Well controlled on current SSRI dose. Osteoporosis 17432299 M8 1.0 Edema of l ower extremity 344566423 R60.0 Stable on diuretic regimen. Needs labs. Lumbosacra l radiculitis 62501013 M54.17 Spinal raymundo nosis of lumbar region 95768465 M48.061 Diarrhea 82190449 R19.7 Had colonoscop y yesterday, pathology pending. ? colitis vs IBS [id number] Ishmael Saleem MD Main Office [address] [facility] [address] [place] [address] 05/08/2022 08:55:11 05/08/2022 09:38:36 Generalized anxiety disorder 37695243 F41.1 Well controlled on current SSRI dose. Will continue. Atrial tachycardia 82376 6006 I47.1 Rate well controlled , tolerating diltiazem well. Arthritis of facet joint of lumbar spine 0384164898 7206849 M46.96 Good response to epidural in Feb. Following with PMR. Will request records. Spinal raymundo nosis of lumbar region 43599549 M48.061 Neuralgia 44233939 M79.2 Lumbosacra l radiculitis 56344723 M54.17 Tolerating and responding well to gabapentin Osteoporosis 34980376 M8 1.0 Improving on recent bone density. Tolerating bisphospho maddy well. Reassess in 02/2024. Edema of l ower extremity 577989178 R60.0 Stable on diuretic regimen. Needs labs. [id number] Ishmael Saleem MD Main Office [address] 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 Will resume gabapentin which was previously tolerated and effective. History of reverse prosthetic total arthroplasty of right shoulder 5771471319 5024249 Z96.611 Recovering uneventful ly otherwise. [id number] Ishmael Saleem MD Main Office [address] [facility] [address] [place] [address] 02/24/2023 12:59:40 02/24/2023 13:57:37 Adult health examination 786717968 Z00.00 COVID and flu advised via local pharmacy when available. Will screen based on risk factors. Regular dental and optho care advised as well as sunscreen and seat belt use. Distracted driving discussed. Advance directives in place. History of reverse prosthetic total arthroplasty of right shoulder 6938128027 6703136 Z96.611 Recovering uneventful ly otherwise. Hypercholesterolemia 136 63887 E78.01 Will reassess, and discuss mgmt based on CVD risk score. Generalize d anxiety disorder 46185630 F41.1 Well controlled on current SSRI dose. Will continue. Neuralgia 36807320 M79.2 Responding well to gabapentin , will continue current dose for now. Osteoarthr itis of left knee joint 5424337288 99904 M17.12 Following with ortho, plans to pursue enflexxa Osteoporosis 14250586 M8 1.0 Improving on recent bone density. Tolerating bisphospho maddy well. Reassess in 02/2024. 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 Reassuranc e provided that LFT's are trending down but SMA positivity could reflect autoimmune liver disease/PB C but I would like a GI specialist to help guide further evaluation . No acute symptoms. Will wait for ultrasound results and see when GI will be able to see her in follow up. Defer further testing until further informatio n is available and guidance provided. [id number] Ishmael Saleem MD Main Office [address] [address] [place] [address] 06/23/2023 10:11:34 07/01/2023 12:52:56 [id number] ARIES GRAY Main Office [address] [address] [place] [address] 07/02/2023 09:45:47 07/02/2023 10:58:06 Transition of care 0113586009 105 Z75.8 reviewed hospital documentat ion Influenza caused by Influenza A virus 300165103 J09.X2 Was seen an treated at [facility], given Tamiflu and treated with supportive IVF, cough med, tylenol and IBU-in office pt is feeling back to her baseline, denies of any symptoms of an illness-PE was unremarkab le Atrial fibrillation 4943 6004 I48.91 -Controlle d with Diltiazem [id number] ARIES GRAY Main Office [address] [address] [place] [address] 07/10/2023 09:36:23 07/10/2023 10:13:05 Pre-surgery evaluation 795107122 Z01.818 pre-operat aubrey medical clearance for Bilateral cataract surgery by Dr. Willie Ceron (NPI#: [id number] ) on 07/21/23 + 08/04/23. Going under topical anesthetic .-EKG is unremarkab le; bradycardi ac with no ST changes Supraventr icular tachycardia 3495384 I47.10 -Controlle d with Diltiazem Generalize d anxiety disorder 42134698 F41.1 well controlled on SSRI [id number] Shakira Wayne MD Main Office [address] [address] [place] [address] 10/20/2023 13:18:17 10/20/2023 13:52:09 Scalp laceration 149701201 S01.01XA 2 suzanne removed with minimal bleeding in place. topical antibiotic applied. [id number] Ishmael Saleem MD Main Office [address] [address] [place] [address] 04/11/2024 09:35:38 04/11/2024 10:41:06 Adult health examination 143105721 Z00.00 Immunizati on status UTD. Will screen based on risk factors. Regular dental and optho care advised as well as sunscreen and seat belt use. Patient currently demonstrat es low risk for falls or significan t cognitive decline. Distracted driving discussed. Advance directives in place. History of reverse prosthetic total arthroplasty of right shoulder 8530211626 3573326 Z96.611 Recovering uneventful ly otherwise. Hypercholesterolemia 136 08885 E78.01 Will reassess, and discuss mgmt based on CVD risk score. Generalize d anxiety disorder 88278930 F41.1 Well controlled on current SSRI dose. Will continue. Neuralgia 09209904 M79.2 Responding well to gabapentin , will continue current dose for now. Osteoarthr itis of left knee joint 6934378764 42614 M17.12 Following with ortho, no benefit with euflexxa, via [facility], so she has transition ed care to [facility], and making therapeuti c progress with PT. Osteoporosis 10424645 M8 1.0 Improving on recent bone density. Tolerating bisphospho maddy well. Reassess in 02/2024. Supraventr icular tachycardia 5520067 I47.10 Well controlled on diltiazem Bone density finding 385 575774 M85.80 Edema of l ower extremity 973641391 R60.0 Would like to go back to [place] Esophageal dysmotility 991613124 K22.4 Recent diagnosis, working with GI, will monitor. [id number] Ishmael Saleem MD Main Office [address] [facility] [address] [place] [address] 05/12/2024 09:22:41 05/12/2024 10:12:41 Hypercholesterolemia 37603442 E78.01 Based on CVD risk and family history pt is willing to try statin. Will start low dose and titrate as tolerated to goal LDL <100. Advised of common/ser ious potential side effects and call with any problems. Recheck labs after 6 weeks on therapy. Edema of l ower extremity 478519845 R60.0 Unable to submit urine sample on recent labs so order was cancelled. Need to screen for proteinuri a. Continue diuretic. [id number] Ishmael Saleem MD Main Office [address] [facility] [address] [place] [address] 07/23/2024 10:54:05 07/23/2024 11:53:16 Atypical pneumonia 978770760 J18.9 Based on symptom duration and current incidence in community will cover for atypical organisms. If CXR abnl would consider broader coverage and further evaluation . Persistent cough 5271792 02 R05.3 Using benzonatat e with relief. Hyponatremia 72141042 E8 7.1 Likely related to diuretic and SSRI therapy but chest imaging should be done. C-reactive protein above reference range 0386437739 67469 R79.82 Likely due to recent RSV and current infection. Will monitor/re assess when acute issues stabiolize . [id number] Ishmael Saleem MD Main Office [address] [facility] [place] [address] 09/26/2024 11:32:06 09/26/2024 12:25:33 Edema of lower extremity 544255665 R60.0 well controlled and tolerated except for slight hyponatrem ia. Will monitor. Chest pain on exertion 52506561 R07.89 Based on symptoms and risk factors additional imaging warranted to rule out ischemic disease. Had a negative stress echo in 2018, will refer for nuclear imaging. Has cardiology f/u scheduled at the end of October. Supraventr icular tachycardia 5238904 I47.10 Well controlled on diltiazem, but haivng bradycardi a at rest so I am reluctant to titrate dose any further today. Essential hypertension 12436210 I10 Better on recheck but if persistent ly >140/90 would add ARB. Continue diuretic and CCB for now. Health Concerns Section Related Observation LastModified by Organization Detai ls LastModified Time None Recorded Concern Status LastModified by Organization Details LastModified Time None Recorded Advance Directives Directive Y: HCP, Son-Edgardo, Sister Les lie Payers Encounter Date Sequence Insurance Name Policy Number Policy Aguayo Covered Member ID Aguayo Member ID Guarantor Name 10/20/2023 1 [facility] [id number] Anni Ribeiro [id number] Anni Ribeiro 04/11/2024 2 [facility] (MEDICARE SUPPLEMENT) Anni Ribeiro [id number] Anni Ribeiro 04/11/2024 1 [place] [employer] Anni Ribeiro [id number] Anni Ribeiro 05/12/2024 2 [facility] (MEDICARE SUPPLEMENT) Anni Ribeiro [id number] Anni Ribeiro 05/12/2024 1 [place] [facility] Anni Ribeiro [id number] Anni Ribeiro 07/23/2024 2 [facility] (MEDICARE SUPPLEMENT) Anni Ribeiro [id number] Anni Ribeiro 07/23/2024 1 [place] [facility] Anni Ribeiro [id number] Anni Ribeiro 09/26/2024 2 [facility] (MEDICARE SUPPLEMENT) Anni Ribeiro [id number] Anni Nairlan 09/26/2024 1 [place] [facility] Anni Ribeiro [id number] Anni Ribeiro Notes Date Note Type Note Provider Name and Address Organization Details Recorded Time 4 text/html 68 year old female for staple removal on frontal scalp area. PT. seen in the ER on 10/02/23 after she hit her head bending down outside and hitting it against part of her mailbox. Head CT was unremarkable. PT. had no signs of concussion. 2 suzanne were placed and due to be removed. Pt. reports no issues with the wound. Janessa Gerber PA-C [address], [address], [facility] 10/20/2023 13:55:41 4 text/html Medicare Annual Wellness VisitReported bypatient.Fracture Risk:no recent explained fracture; no sudden unexplained fractures;history of fractures Physical Activity:exercises on a regular basis; recent increase in physical activity; good physical condition Depression Risk:never feels sad, empty, or tearful; no loss of interest in activities; no sleep disturbances or insomnia; no history of depression Orientation:no disorientation to time; no disorientation to date; no disorientation to place Concentration and Memory:no decreased concentrating ability; no memory lapses or loss; does not forget words Speech/Motor difficulties:no speech difficulties; no difficulty expressing formulated concepts; no difficulty with fine manipulative tasks; no difficulty writing/copying; no slowed reaction time; does not knock things over when trying to pick them up Hearing:no loss of hearing Vision:no vision problems Activities of Daily Living:able to bathe with limited or no assistance; able to contol urination and bowels; able to dress with limited or no assistance; able to feed self with limited or no assistance; able to get out of chair or bed with limited or no assistance; able to groom with limited or no assistance; able to toilet with limited or no assistance Instrumental Activities of Daily Living:able to do house work with limited or no assistance; able to grocery shop with limited or no assistance; able to manage medications with limited or no assistance; able to manage money with limited or no assistance; able to prepare meals with limited or no assistance; able to use the phone with limited or no assistance Falls Risk Assessment:no frequent falls while walking; no fall in the past year; no fall since last visit; no dizziness/vertigo Home Safety:no unsafe walker hazzards; no unsafe stairs; working smoke/CO detectors; use of seatbelts; has hand bars in the bathroom/shower Ishmael Saleem MD [address], [address], [facility] 04/11/2024 10:41:58 4 text/html HyperlipidemiaReported bypatient.Type of hyperlipidemia:hypercholest erolemia Duration:chronic Prior Tests:highest cholesterol level: (216); highest LDL level: (119); highest triglyceride level: (79); lowest HDL level: Control:usually well controlled;not at goal Current Therapy:last cholesterol level: (208); last LDL level: (119); last triglyceride level: (70) Compliance:compliant; compliant with diet; exercises Complications:no coronary artery disease; no peripheral artery disease; no cardiovascular disease Risk Factors:positive family history of premature arteriosclerotic cardiovascular diseaseNotes:CVD risk score currently 7.7% Ishmael Saleem MD [address], [address], [facility] 05/13/2024 07:40:06 5 text/html CoughReported bypatient.Quality:harsh Severity:worsening;pain with cough Duration:symptoms lasting over 2 weeks Timing:worse Context:non-smoker Associated Symptoms:no fever; no chills; no nausea; no vomiting; no wheezing; no post nasal drip;chest painNotes:Brother recently hospitalized and from pneumonia. Pt seen at [place] [facility] on 06/22/24. Sent home on benzonatate, which helped but symptoms smoldered and seem to recur. Had mild hyponatremia in the ED and on recent labs along with CRP elevation. Ishmael Saleem MD [address] [address], [place], [address], [facility] 07/23/2024 13:13:26 5 text/html HyperlipidemiaReported bypatient.Type of hyperlipidemia:hypercholest erolemia Duration:chronic Prior Tests:highest cholesterol level: (216); highest LDL level: (119); highest triglyceride level: (79); lowest HDL level: Control:usually well controlled;not at goal Current Therapy:currently taking: (atorvastatin 10mg); last cholesterol level: (133); last LDL level: (51); last triglyceride level: (65); last HDL level: (69) Compliance:compliant; compliant with diet; exercises Complications:no coronary artery disease; no peripheral artery disease; no cardiovascular disease Risk Factors:positive family history of premature arteriosclerotic cardiovascular diseaseNotes:CVD risk score currently 10.6%, tolerating atorvastatin well.palpitationsReported bypatient.rapid or irregular heartbeat (palpitations)occurring: intermittently; occurring: with exertion; over 12 months; rapid or irregular heartbeat (palpitations)Notes:Nelsy nding issue and was evaluated by cardiology in 2018 when she had significant tachycardia on treadmill stress testing. [place] that she had SVT and ultimately wound up on a regimen of diltiazem which she is currently tolerating. Having low resting HR though. Cardio CRP was also elevated recently and pt reports episodes of dyspnea, neck pain and palpitations with exertion, while pushing her grandchild in stroller in [facility]. Remains on diuretic combo which was started years ago primarily for edema. Ishmael Saleem MD [address] [facility] [address], [place], [address], [facility] 09/26/2024 12:35:16 OBGyn Episode No OBEpisode recorded.
--- OUTSIDE RECORDS SUMMARY | 2024-10-20 17:37 | XMS_ITS | Encounter Summary ---
Author Organization [facility] Address [address] [place] [address] Care Team Providers Care Manager R D Name Role Phone Ishmael Madrigal MD Primary Care Provider [phone] Reason for Visit * Cardiac Stress Testing (Routine) - Authorized Specialty Diagnoses / Procedures Referred By Contac t Referred To Contact Cardiology Diagnoses Other chest pain Procedures Exercise nuclear stress test with myocardial perfusion UT MYOCARDIAL PERFUSION IMAGING TOMOGRAPHIC MULTI STUDIES AT REST OR STRESS UT MYOCARDIAL PERFUSION IMAGING TOMOGRAPHIC SINGLE STUDY AT REST OR STRESS UT CARDIOVASCULAR STRESS TEST GLOBAL UT CV TMST/BIKE MAX/SUBMAX CONTINUOUS ECG MON/PHARM STRESS SUPVSR ONLY UT CV STRESS TEST/BIKE CONT ECG MON/PHARM STRESS INTERP & REPORT ONLY UT TEST STRESS CARDIOVASCULAR TRACING ONLY Ishmael Madrigal MD [address] [place], [place] Phone: tel: fax: [facility] Referral ID Status Reason Start Date Expiration Date V isits Requested Visits Authorized [id number] Authorized 10/10/2024 10/10/2025 3 3 Encounter Details Date Type Department Care Team (Latest Contact Info) Description 10/17/2024 1:00 PM EDT Ancillary Procedure [facility] - [address] [place] [address] Other chest pain Social History Tobacco Use Types Packs/Day Years Used Date Smoking Tobacco: Former Smokeless Tobacco: Never Alcohol Use Standard Drinks/Week Comments Yes 7 (1 standard drink = 0.6 oz pur e alcohol) Comments Unknown Sex and Gender Information Value Date Recorded Sex Assigned at Female 09/28/2024 1:30 PM EDT Legal Sex Female 3:49 AM EST Gender Identity Female 09/28/2024 1:30 PM EDT Sexual Orientation Straight 09/28/2024 1: 30 PM EDT documented as of this encounter Last Filed Vital Signs Vital Sign Reading Time Taken Comments Blood Pressure 130/73 10/17/2024 1:31 PM EDT Pulse - - Temperature - - Respiratory Rate - - Oxygen Saturation - - Inhaled Oxygen Concentration - - Weight 59 kg (130 lb) 10/17/2024 1:02 PM EDT Height 157.5 cm (5' 2 ) 10/17/2024 1:02 PM EDT Body Mass Index 23.78 10/17/2024 1:02 PM EDT documented in this encounter Plan of Treatment Upcoming Encounters Date Type Department Care Team (Late st Contact Info) Description 11/15/2024 1:40 PM EDT Office Visit [facility] - [address] [place] [id number] Akanksha Lima MD [address] [place] [address] documented as of this encounter Procedures Procedure Name Priority Date/Time Associated Diagnosis Comments NM EXERCISE STRESS TEST W/ MYOCARDIAL PERFUSION Routine 10/17/2024 4:00 PM EDT Other chest pain documented in this encounter Results * NM EXERCISE STRESS TEST W/ MYOCARDIAL PERFUSION (10/17/2024 4:00 PM EDT) Exercise/injec tion duration (min) 4 CV PACS STRESS Exercise/injec tion duration (sec) 31 CV PACS STRESS Peak SBP 152 mmHg CV PACS STRESS Peak DBP 80 mmHg CV PACS STRESS Peak HR 179 bpm CV PACS STRESS Baseline HR 130 bpm CV PACS STRESS Baseline SBP 130 mmHg CV PACS STRESS Baseline DBP 73 mmHg CV PACS STRESS Estimated workload 7.0 METS CV PACS STRESS Percent HR 119 % CV PACS STRESS Rate Pressure Product 27,208.0 mmHg*bpm CV PACS STRESS Target HR 128 bpm CV PACS STRESS TID 0.57 CV PACS STRESS Nuc Stress EF 67 % CV PAC S STRESS Nuc Rest EF 72 % CV PACS STRESS BSA 1.61 m2 CV PACS STRESS Max HR Percent 119 % CV PA CS STRESS Anatomical Region Laterality Modality Nuclear Medicine 10/17/2024 2:23 PM EDT 10/17/2024 3:32 PM EDT Impressions 10/18/2024 11:34 AM EDT Normal Exercise stress test with nuclear imaging. ?? SVT noted during study which responded favorably to oral diltiazem No chest pain or EKG changes consistent with ischemia. Nuclear imaging revealed no significant perfusion defects There is a normal TID ratio. Gated SPECT imaging was performed and revealed an LVEF of >70 %. Narrative 10/18/2024 11:34 AM EDT Nuclear imaging of the left ventricle shows a normal cavity size. Myocardial perfusion imaging of the left ventricle reveals no significant perfusion defects Gated SPECT imaging was performed which demonstrated normal left ventricular systolic function. The calculated LVEF is >70 %. TID ratio is normal. No significant coronary artery calcification noted on CT scan Stress Findings A Terrell protocol stress test was performed. Overall, the patient's exercise capacity was average. The patient reached stage 2. Total stress time was 4 min and 31 sec. The test was stopped because the patient experienced fatigue. Blood pressure demonstrated a normal response. Heart rate demonstrated a normal response. The patient reported no symptoms during the stress test. ECG 69-year old history of SVT presents for nuclear stress test. The ECG shows sinus tachycardia. The ECG axis is normal. Arrhythmias during stress: supraventricular tachycardia (SVT) . Arrhythmias during recovery: supraventricular tachycardia (SVT). Patient was given a total of 7.5 mg of IV metoprolol and 250 mL of normal saline in recovery. She also took her p.o. diltiazem which she had held for 48 hours prior to this test. After her images were obtained we repeated an EKG which showed normal sinus rhythm with a heart rate of 71 bpm. Patient was asymptomatic and left the testing suite. The result of the stress ECG was negative for ischemia. Nuclear Study Quality Study technique: MPI, SPECT, multi, rest and stress, 1 day. Overall image quality is good. CT attenuation correction was utilized. No radiopharmaceutical dose was extravasated. The time from injection to rest imaging is 45 mins. The time from injection to stress imaging is 50 mins. Stress Function Comments Stress ejection fraction is 67%. Rest Function Comments Resting ejection fraction was 72%. Ishmael Madrigal MD CV STRESS PROCEDURES Final Res ult documented in this encounter Visit Diagnoses Diagnosis Other chest pain documented in this encounter Administered Medications Inactive Administered Medications - up to 3 most recent administrations Medication Order MAR Action Action Date Dose Rate Site metoprolol tartrate (LOPRESSOR) injection 2.5 mg 2.5 mg, intravenous, Once in imaging, Starting on Thu10/17/24 at 1530, For 1 dose, For IV Push - Administer undiluted over 2 minutes Given 10/17/2024 3:30 PM EDT 2.5 mg metoprolol tartrate (LOPRESSOR) injection 5 mg 5 mg, intravenous, Once in imaging, Starting on Thu10/17/24 at 1530, For 1 dose, For IV Push - Administer undiluted over 2 minutes Given 10/17/2024 3:30 PM EDT 5 mg TC-99M tetrofosmin P radio-isotope injection 30.6 millicurie 30.6 millicurie, intravenous, Once in imaging, Starting on Thu10/17/24 at 1500, For 1 dose Given 10/17/2024 2:50 PM EDT 30.6 millicuries TC-99M tetrofosmin P radio-isotope injection 9.9 millicurie 9.9 millicurie, intravenous, Once in imaging, Starting on Thu10/17/24 at 1311, For 1 dose Given 10/17/2024 1:11 PM EDT 9.9 millicuries documented in this encounter Care Teams Manager R D Relationship Specialty Start Date End Date Ishmael Madrigal MD [address] [place] [address] PCP - General 11/10/13 documented as of this encounter
--- OUTSIDE RECORDS SUMMARY | 2024-10-20 17:37 | XMS_ITS | Data Portability ---
Author Organization [facility] O[facility] Address [address] [place] [address] Assessment Encounter Date Assessment Date Assessment LastModified by Organization Details LastModified Time 09/18/2023 09/18/2023 PROBLEM: Left kn ee patellofemoral end-stage osteoarthritis HISTORY: The patient is a 68-year-old female who presents today for evaluation of her left knee. She has a long history of ongoing knee pain. She reports ongoing treatment for greater than 9 months. Patient had corticosteroid with short-term benefit. She had viscosupplementation in the form of Euflexxa without significant benefit. She avoids walking with an assistive device. She is tried multiple braces which she finds fall down. The patient has difficulty kneeling. The patient has trialed wqux-dio-hmiggxp medications including Tylenol. Patient has difficulty climbing and descending stairs. More so descending then climbing. She has she can walk relatively unlimited distances. She is unable to kneel. She describes the bulk of her pain is anterior in nature. Patient is very avid doing a home exercise program but has largely been relegated to the elliptical due to the severity of her pain. The patient's knee symptom profile form was reviewed and is part of the medical record. The patient remains symptomatic and has had an unsuccessful history of appropriate conservative therapy (non-surgical medical management). Non-surgical medical management has been implemented for 3 months or more to assess effectiveness. Conservative treatment as clinically appropriate for the patient? s current episode of care including, but not limited to, one or more of the following: anti-inflammatory medications, analgesics, flexibility and muscle strengthening exercises, supervised physical therapy (Activities of daily living (ADLs) diminished despite completing a plan of care), activity restrictions as is reasonable, assistive device use, weight reduction as appropriate, and therapeutic injections into the joint as appropriate PFMSH and ROS have been reviewed, updated, and is located in the patient? s chart. PAST MEDICAL HISTORY: Past medical history is significant for Crohn's, depression, osteoporosis, back pain PAST SURGICAL HISTORY: Past surgical history includes total shoulder MEDICATIONS: Please see intake form. ALLERGIES: Patient reports an allergy to codeine does not report an allergy to metal, latex, Iodine, tape, or adhesives. SOCIAL HISTORY: The patient is a director at [employer]. She quit smoking in 1979. She consumes 2 alcoholic beverages per week. She is . She has stairs, lives alone, but has an extensive support system. PHYSICAL EXAMINATION: Please see vitals recorded below Mental status: Alert and lucid. Normal insight, affect, and grooming. The patient appears younger than her stated age. WEB APPLICATION DEVELOPER: Gross motor coordination is intact. No spasticity or clonus noted. Extremities: Calves are soft and nontender. Skin intact. Palpable pedal pulses equal bilaterally. ORTHOPEDIC EXAMINATION: Negative SLR tests bilaterally. Full ROM of both hips without pain. No trochanteric tenderness. Evaluation of knees: Left Knee range of motion is 0-110 degrees. Knee is stable to varus/valgus loading, anterior/posterior drawer testing, Evi testing. No erythema, no redness. There is moderate sub patellar crepitus. Peripheral vascular, lymphatic examination, skin, neurological coordination, reflexes, and sensation are within normal limits. IMAGING: Previously obtained X-rays reviewed in the office today on [facility] PACS: Weight bearing AP of Both knees, [place] view of Both Knees, [place] View of Both Knees, and Lateral of the Left knee; demonstrate severe end-stage patellofemoral osteoarthritis of the Left Knee. There is euci-de-fkpg articulation in the patellofemoral joint, subchondral sclerosis, osteophyte formation. There is varus deformity and there is Severe patellofemoral involvement. There is Kellgren Damaso grade 4 osteoarthritis. There is also significant tibiofemoral osteoarthritis. However it is less severe. IMPRESSION: Left knee end-stage patellofemoral osteoarthritis PLAN: I reviewed with the patient surgical and nonsurgical means to control symptoms. The patient understands that they are at potential increased risk of delayed recovery. I reviewed with the patient surgical and nonsurgical means to control symptoms. Patient has some fairly profound patellofemoral osteoarthritis. She notes increasing impact on her ability to perform activities of daily living. Patient is interested the possibility of total knee arthroplasty. However, she has a great deal of responsibilities for work coming up. She is hoping to retire in the near future. We reviewed the risks and benefits surgery. We discussed time for surgical scheduling. We discussed possibly outpatient surgical intervention. Patient is amenable to this. Patient will call us if she wishes to proceed with surgical intervention. The patient has requested a brace. We settled on a patellar stabilizing brace. The patient is ambulatory, but has weakness and/or instability of their extremity which requires stabilization from this semi-rigid/rigid orthosis to improve their function. Verbal and written instructions for the use and application of this item were given. Patient was instructed that should the brace result in increased pain, decreased sensation, increased swelling or an overall worsening of their medical condition, to please contact our office immediately. In the interval I also provided the patient a prescription for prehab physical therapy. I think quadricep strengthening prior to any planned surgical intervention would significantly improve her outcomes. The patient has exhausted all conservative treatment, therapy and measures. The patient was thoroughly counseled today regarding their knee condition, its natural history and the options, both operative and non-operative. The nature of knee replacement surgery, the potential risks, benefits, and complications, the magnitude of the surgery, the intensity of postoperative recovery as well as its elective nature was explained at length today. Issues regarding lifelong infection and activity precautions were reviewed. The longevity of the implants was discussed. The patient understands the potential need for revision surgery within the next 15 years. The patient understands the potential complexity of a revision situation. A copy of my knee replacement information packet was given. The patient will require clearance from a medical doctor prior to surgery. The patient knows I will be happy to meet with them at any time in order to review any additional questions or concerns that they might have. Patient was satisfied with this plan. I attempted to answer all of the patient's questions. [employer] speech recognition soybean grower software was used to create portions of this document. An attempt at proofreading has been made to minimize errors. Please call for corrections. [email or web address] Not available 09/18/2023 12:47:59 Plan of Treatment Reminders Order Date Submit Date Provider Last Modified By Organization Details Last Modified Time Details Appointments None record ed. Lab None record ed. Referral None record ed. Procedures None record ed. Surgeries None record ed. Imaging None record ed. Medication Orders None record ed. Patient TargetsNo targets recorded. Patient InstructionsNo instructions recorded. Reason for Referral None Reported. Results Created Date Observation Date Name Description Value Unit Range Abnormal Flag Note LastModifiedBy Organization Detail LastModifiedTime 02/20/20 24 09/15/2022 imagi ng/di agnos tic resul t No observ ation record ed. [email or web address] Not Available 01/22 02:34:36 02/20/20 24 09/04/2022 imagi ng/di agnos tic resul t No observ ation record ed. [email or web address] Not Available 01/22 02:34:47 02/20/20 24 09/15/2022 imagi ng/di agnos tic resul t No observ ation record ed. [email or web address] Not Available 01/22 02:34:52 02/20/20 24 01/18/2020 imagi ng/di agnos tic resul t No observ ation record ed. [email or web address] Not Available 01/22 02:36:07 Result Notes None recorded. Problems Name Problem SNOMED Code Status Onset Date Resolution Date Notes Provider Name and Address Organization Details Recorded Time No complaint s 476225142 Active Status: 'I'; Not Available [facility] 4 09:17:10 Pain of joint of knee 4238101816 Active 2022 Status: 'A'; Not Available [facility] 4 11:27:25 Trigger finger of left hand 061383497549 53251 Active 2019 Problem Code: M65.342; Problem Code Type: ICD-10; Status: 'A'; Not Available [facility] 4 11:27:25 Trigger finger of right hand 100599251793 07085 Active 2019 Problem Code: M65.341; Problem Code Type: ICD-10; Status: 'A'; Not Available [facility] 4 11:27:25 Osteoarth ritis of left hip joint 714513837888 108 Active 2023 Quique Walden MD [address], [place], [address] , [facility] 4 08:24:28 Osteoarth ritis of left knee joint 102205654941 109 Active 2023 Quique Walden MD [address], [place], [address] , [facility] 4 10:56:41 Problem Notes None recorded. Procedures Surgical History None recorded. Imaging Results Imaging Date Name Status LastModified by Organiz ation Details LastModified Time 09/15/2022 imaging/diag nostic result completed Information not available 02/20/2024 02:34:36 09/04/2022 imaging/diag nostic result completed Information not available 02/20/2024 02:34:47 09/15/2022 imaging/diag nostic result completed Information not available 02/20/2024 02:34:52 01/18/2020 imaging/diag nostic result completed Information not available 02/20/2024 02:36:07 Procedure Notes None recorded. Medical Equipment None Reported. Allergies Allergen ID Allergen Name Allergen Category Reaction Reaction Severity Criticality Documentation Date Start Date Code Code System Note Provider Name and Address Organization Details Recorded Time 21168 codeine medicatio n Not available Not available Not available 08/24/20232013 2670 RxNorm Not Available [facility] 14:03:42 Medications Name Sig Start Date Stop Date Status Note LastModified by Organization Details LastModified Time diltiazem CD 180 mg capsule,exte nded release 24 hr TAKE 1 CAPSULE BY MOUTH DAILY FOR 180 DAYS. active Not Available Not Available No t Available fluorouracil 5 % topical cream PLEASE SEE ATTACHED FOR DETAILED DIRECTIONS active Not Available Not Available N ot Available diphenoxylat e-atropine 2.5 mg-0.025 mg tablet TAKE 2 TABLETS BY MOUTH 4 TIMES A DAY active Not Available Not Available Not Available acetaminophe n 500 mg tablet TAKE 2 TABLETS BY MOUTH EVERY 8 HOURS AROUND THE CLOCK FOR PAIN DIRECTED. active Not Available Not Available No t Available triamterene 37.5 mg-hydrochlo rothiazide 25 mg capsule active Not Available Not Available Not Available amoxicillin 500 mg tablet TAKE 4 TABLETS 1 HOUR PRIOR TO DENTAL PROCEDURE DIRECTED active Not Available Not Available Not Available hydromorphon e 2 mg tablet TAKE 1 TABLET BY MOUTH EVERY 4 HOURS NEEDED FOR PAIN active Not Available Not Available No t Available aspirin 325 mg tablet,delay ed release TAKE 1 TABLET BY MOUTH EVERY DAY FOR 14 DAYS STARTING THE DAY AFTER SURGERY DIRECTED active Not Available Not Available No t Available benzonatate 100 mg capsule TAKE 1 CAPSULE BY MOUTH THREE TIMES A DAY NEEDED FOR COUGH active Not Available Not Available No t Available hyoscyamine sulfate 0.125 mg tablet TAKE 1 TABLET BY MOUTH FOUR TIMES A DAY TAKE BEFORE MEALS AND AT BED active Not Available Not Available No t Available oseltamivir 75 mg capsule TAKE 1 CAPSULE BY MOUTH EVERY 12 HOURS active Not Available Not Available No t Available docusate sodium 100 mg capsule TAKE 1 CAPSULE BY MOUTH UP TO TWO TIMES A DAY NEEDED FOR CONSTIPATIO N WHILE TAKING NARCOTIC MEDICATIONS DIRECTED. active Not Available Not Available No t Available gabapentin 300 mg capsule TAKE 1 CAPSULE BY MOUTH THREE TIMES A DAY NEEDED active Not Available Not Available No t Available diltiazem CD 120 mg capsule,exte nded release 24 hr active Not Available Not Available Not Available budesonide DR - ER 3 mg capsule,jitendra yed,extended release TAKE 3 CAPSULE BY MOUTH ONCE A DAY IN THE MORNING active Not Available Not Available Not Available fluoxetine 20 mg capsule TAKE 1 CAPSULE BY MOUTH EVERY DAY active Not Available Not Available No t Available fluticasone propionate 50 mcg/actuatio n nasal spray,suspen johnny 1 SPRAY INTRANASALL Y 2 TIMES A DAY active Not Available Not Available No t Available amoxicillin 875 mg-potassium clavulanate 125 mg tablet TAKE 1 TABLET BY MOUTH EVERY 12 HOURS FOR 10 DAYS active Not Available Not Available Not Available oxycodone 5 mg tablet TAKE 1 TABLET BY MOUTH EVERY 4 HOURS NEEDED FOR PAIN DIRECTED (DO NOT DRIVE WHILE ON THIS MEDICATION) active Not Available Not Available Not Available bromfenac 0.09 % eye drops INSTILL 1 DROP ONCE DAILY TO THE LEFT EYE FOR 6 WEEKS DIRECTED active Not Available Not Available No t Available Dyazide Dyazide 37.5-25MG Capsule 2022 active Statu s: 'Curr ent'; Not Available Not Available Not Available risedronate 150 mg tablet active Not Available Not Available Not Available oxycodone HCl-oxycodon e-ASA as directed 1 TABLET Q 4 HOURS PRN PAIN DO NOT DRIVE WHILE TAKING THIS MEDICATION 2022 active Statu s: 'Curr ent'; Not Available Not Available Not Available bimatoprost 0.03 % drops with applicator, eyelash base active Not Available Not Available Not Available Creon 24,000-76,00 0-120,000 unit capsule,jitendra yed release TAKE ONE TABLET WITH SNACKS AND TWO TABLETS WITH MEALS active Not Available Not Available N ot Available Creon 36,000 unit-114,000 unit-180,000 unit capsule,jitendra yed release TAKE 2 CAPSULES BY MOUTH FOUR TIMES A DAY active Not Available Not Available Not Available Vitals Date Recorded Body height Body mass index (BMI) Body weight Provider Name and Address Organization Details Last Updated DateTime 09/18/2023 156.21 cm 26 kg/m2 16550.93 g SAIDA BARRETO [place] - [facility] 09/18/2023 10:23:11 Social History None recorded. Functional Status None recorded. Mental Status None recorded. Family History Nothing Reported. Medical History No medical history recorded. Gynecological HistoryNo gynecological history recorded. Obstetrics History GPAL:G 0 P 0 0 0 0 Past Encounters Encounter ID Performer Location Encounter Start Date Encounter Closed Date Diagnosis/Indication Diagnosis SNOMED-CT Code Diagnosis ICD10 Code Diagnosis Note [id number] [facility] [address] [facility] [place] [address] 09/18/2023 10:11:48 10/08/2023 09:16:16 Pain of left knee region 2788255725 23687 M25.562 Osteoarthr itis of left knee joint 9827210679 55598 M17.12 Health Concerns Section Related Observation LastModified by Organization Detai ls LastModified Time None Recorded Concern Status LastModified by Organization Details LastModified Time None Recorded Advance Directives Directive None Recorded Payers Encounter Date Sequence Insurance Name Policy Number Policy Aguayo Covered Member ID Aguayo Member ID Guarantor Name 09/18/2023 1 [facility] [id number] Anni Ribeiro [id number] Anni Ribeiro OBGyn Episode No OBEpisode recorded.
--- OUTSIDE RECORDS SUMMARY | 2024-10-20 17:37 | XMS_ITS | Encounter Summary ---
Author Organization [facility] Address [address] [place] [address] Care Team Providers Care Water Regulator And Valve Repairer Name Role Phone Ishmael Madrigal MD Primary Care Provider [phone] Reason for Visit * Reason Onset Date Comments Atrial Fibrillation 10/20/2024 Hypertension 10/20/2024 Encounter Details Date Type Department Care Team (Late st Contact Info) Description 10/20/2024 Telephone [facility] - [facility] [address] [facility] [address] [place] [phone] Akanksha Lima MD [address] [facility] [address] [place] [address] Atrial Fibrillation; Hypertension Social History Tobacco Use Types Packs/Day Years [...] PM EDT documented as of this encounter Progress Notes * Dolores Wilkes RN - 10/20/2024 4:34 PM EDT Noted LM response. * ARIES Jerez - 10/20/2024 4:20 PM EDT Agree with plan * Dolores Wilkes RN - 10/20/2024 3:53 PM EDT Patient reports feels short of breath and was very tired today -laying down earlier today. BP 142/108 Reports hr 153 at 3: 34 pm. And Ginny stated possible afib Did another Kardia mobile because she states she feels hr slowing down. She denied chest pain, throat pain. Denied dizziness. [place] slightly lightheaded. Short of breath. States Kardia states possibleafib hr 137. Takes asa 81 mg qd . No other OAC. I advised er. She is going to [facility]close by I advised she call 911. Unsure if she will -stated sister to drive. I again stated call 911. No missed meds today. Unable to send Ginny tracing . She is wearing 14 day ROCT . Symptomatic so I advised 911 ER. Report called. Poonam NAGY, Echo to [phone] * Nel Mayes - 10/20/2024 3:46 PM EDT Patient called concerned she is not feeling well. Her blood pressure is 142/108, pulse 153. Her Kardia reads possible afib, she is unsure if she should go to emergency room. Please return her call [phone]. documented in this encounter Plan of Treatment Upcoming Encounters Date Type Department Care Team (Late st Contact Info) Description 11/15/2024 1:40 PM EDT Office Visit [facility] - [address] [place] [address] Akanksha Lima MD [address] [place] [address] documented as of this encounter Visit Diagnoses Not on filedocumented in this encounter Care Teams Water Regulator And Valve Repairer Relationship Specialty Start Date End Date Ishmael Madrigal MD [address] [place], [place] PCP - General 11/10/13 documented as of this encounter
--- OUTSIDE RECORDS SUMMARY | 2024-10-20 17:37 | XMS_ITS | Clinical Summary ---
Author Organization [facility] [address] [facility] Address [address] [place] [address] Phone Care Team Providers Care Siphoner Name Role Phone Ishmael Madrigal MD Primary Care Provider [phone] Allergies Active Allergy Reactions Criticality Noted Date Comments Codeine Nausea And Vomiting,Nausea Only Low 02/21 Medications calcium carbonate-dany min D3 500 mg-3.125 mcg (125 unit) tablet per tabelt Calcium 500 + D 1 tab daily orally Active multivitamin (MULTIPLE VITAMINS ORAL) daily. 4 Active triamterene-hy droCHLOROthiaz africa (DYAZIDE) 37.5-25 mg per capsule Take 1 capsule by mouth daily. Active risedronate (ACTONEL) 150 mg tablet Take 1 tablet (150 mg total) by mouth. 2 Active gabapentin (NEURONTIN) 300 mg capsule gabapentin 300 mg capsule 2 Active atorvastatin (LIPITOR) 10 mg tablet Take 1 tablet (10 mg total) by mouth at bedtime. 5 Active dilTIAZem CD (Cardizem CD) 240 mg 24 hr capsule Take 1 capsule (240 mg total) by mouth 1 (one) time each day. 90 capsule 3 5 Active dilTIAZem CD (Cardizem CD) 180 mg 24 hr capsule Take 1 Capsule by mouth daily. 4 09/29/19 25 Discontinu ed(Reorder ) Hospital, Clinic, or Other Facility Administered Medication Ordered Dose Route Frequency Start Date End Date Status TC-99M tetrofosmin P radio-isotope injection 9.9 millicurie 9.9 millicurie IV Once in imaging 10/17/2024 10/17/2024 Ended TC-99M tetrofosmin P radio-isotope injection 30.6 millicurie 30.6 millicurie IV Once in imaging 10/17/2024 10/17/2024 Ende d metoprolol tartrate (LOPRESSOR) injection 5 mg 5 mg IV Once in imaging 10/17/2024 10/17/2024 Ended metoprolol tartrate (LOPRESSOR) injection 2.5 mg 2.5 mg IV Once in imaging 10/17/2024 10/17/2024 End ed Active Problems Problem Noted Date Diagnosed Date SOB (shortness of breath) 08/26/2023 Ulcerative colitis (CMS/HCC V24, CMS/HCC V28) Abdominal discomfort 01/13/2022 Primary hypertension 01/13/2022 Atrial tachycardia (CMS/HCC V24) 07/18/2020 Palpitations 07/18/2020 Encounters Date Type Department Care Team Description 10/20/2024 Telephone [facility] - [address] [place] [address] Akanksha Lima MD Atrial Fibrillation; Hypertension 10/17/2024 1:00 PM EDT Ancillary Procedure [facility] - [address] [place] [address] Other chest pain 10/13/2024 8:00 AM EDT Ancillary Procedure [facility] Cardiology [facility] - [address] [place] [address] Atrial tachycardia (CMS/HCC V24); Palpitations 09/29/2024 Telephone [facility]iology [facility] - [address] [place] [phone] Fran Dowd MD ROCT - [id number] (Ok to Book); ROCT Enrollment (Enrolling patient for 14 day ROCT) 09/27/2024 Telephone [facility] - [facility] [address] [facility] [address] [place] [phone] Cassandra Hyatt PA Irregular Heart Beat from Last 3 Months Social History Tobacco Use Types Packs/Day Years [...] Orientation Straight 09/28/2024 1: 30 PM EDT Obstetrics History Last Filed Vital Signs Vital Sign Reading Time Taken Comments Blood Pressure 130/73 10/17/2024 1:31 PM EDT Pulse 58 08/26/2023 3:17 PM EST Temperature - - Respiratory Rate - - Oxygen Saturation - - Inhaled Oxygen Concentration - - Weight 59 kg (130 lb) 10/17/2024 1:02 PM EDT Height 157.5 cm (5' 2 ) 10/17/2024 1:02 PM EDT Body Mass Index 23.78 10/17/2024 1:02 PM EDT Plan of Treatment Upcoming Encounters Date Type Department Care Team (Late st Contact Info) Description 11/15/2024 1:40 PM EDT Office Visit [facility] - [facility] [address] [facility] [address] [place] [phone] Akanksha Lima MD 300 [facility] [address] [place] [address] Health Maintenance Due Date Last Done Comments Breast Cancer Screening 1955 Cholesterol Screening (Lipid Panel) 05/31/2022 Colorectal Cancer Screening: Colonoscopy 05/31/2022 Depression Screening 05/31/2022 Falls Risk Assessment 05/31/2022 Hepatitis C Screening 05/31/2022 Medicare Annual Wellness Visit 05/31/2022 Osteoporosis Screening (Bone Density Screening) 05/31/2022 Social Influencers of Health Screening 05/31/2022 Hypertension/CHF/CAD Annual BMP Blood Test 06/01/2022 COVID-19 Vaccine ( season) 2024 02/18/2024, 03/29/2023, 04/21/2022, Additional history exists DTaP,Tdap,and Td Vaccines (3 - Td or Tdap) 10/11/2033 10/12/2023, 03/23/2015 Zoster Vaccines Completed 02/25/2019, 06/0 08/2018, 07/01/2014 Pneumococcal Vaccine: 50+ Years Completed 03/29/2023, 10/23/2020, 07/19/2019 RSV Immunization Adult Patients Completed 04/22/2023 Influenza Vaccine Completed 02/18/2024, , 04/21/2022, Additional history exists HIB Vaccines Aged Out No longer eligi ble based on patient's age to complete this topic HPV Vaccines Aged Out No longer eligi ble based on patient's age to complete this topic Hepatitis A Vaccines Aged Out No long er eligible based on patient's age to complete this topic Hepatitis B Vaccines Aged Out No long er eligible based on patient's age to complete this topic IPV Vaccines Aged Out No longer eligi ble based on patient's age to complete this topic MMR Vaccines Aged Out No longer eligi ble based on patient's age to complete this topic Meningococcal ACWY Vaccine Aged Out N o longer eligible based on patient's age to complete this topic Meningococcal B Vaccine Aged Out No l onger eligible based on patient's age to complete this topic RSV Immunization Patients Under 20 months Aged Out No longer eligible based on patient's age to complete this topic Varicella Vaccines Aged Out No longer eligible based on patient's age to complete this topic Procedures Procedure Name Priority Date/Time Associated Diagnosis Comments NM EXERCISE STRESS TEST W/ MYOCARDIAL PERFUSION Routine 10/17/2024 4:00 PM EDT Other chest pain from Last 3 Months Results * NM EXERCISE STRESS TEST W/ [...] MD CV STRESS PROCEDURES Final Res ult from Last 3 Months Insurance MEDICARE Advance Directives Documents on File Type Date Recorded Patient Manager Retail Expl anation Health Care Decision (hx) 03/19/2018 AD SHAEN DIRECTIVE Health Care Decision (hx) 03/19/2018 AD SHANE DIRECTIVE Health Care Decision (hx) 03/19/2018 AD SHANE DIRECTIVE Health Care Decision (hx) 03/19/2018 AD SHANE DIRECTIVE Health Care Decision (hx) 03/19/2018 AD SHANE DIRECTIVE Health Care Decision (hx) 03/19/2018 AD SHANE DIRECTIVE Care Teams Siphoner Relationship Specialty Start Date End Date Ishmael Madrigal MD [address] PCP - General 11/10/13
[2024-10-20 17:47] VITALS: BP 142/76; PULSE 82; RESP 16; O2SAT 98
[2024-10-20 18:20] VITALS: BP 142/76; PULSE 82; RESP 12; O2SAT 100
--- NOTE | 2024-10-20 18:57 | ED_ITS ---
HPI - Arrhythmia/Palpitations General Chief Complaint: Arrhythmia/Palpitations Stated Complaint: heart complications svt , afib Time Seen by Provider: 10/20/24 18:55 History of Present Illness ED Provider: Mathieu Pillai MD HPI narrative: 69-year-old female presents with palpitations. Hx of SVT. Patient reports generalized malaise and some palpitations some dyspnea with exertion slightly worse recently. She had a nuclear stress test no results you back but this triggered SVT that was finally treated with oral diltiazem effectively. No chest pain no leg swelling no history DVT or PE. Patient is on a triamterene has chronic bilateral pedal edema. L Related Data Home Medications ?Medication ?Instructions ?Recorded ?Confirmed bimatoprost 0.03 % drops with 1 drp topical BEDTIME 06/20/23 06/20/23 applicator, eyelash base diltiazem HCl 120 mg 120 mg PO DAILY 06/20/23 06/20/23 capsule,extended release 24 hr fluoxetine 20 mg capsule 20 mg PO DAILY 06/20/23 06/20/23 gabapentin 300 mg capsule 300 mg PO TID 06/20/23 06/20/23 ejirte-hntwjqil-fwyckzc 1 cap PO DAILY PRN snacks 06/20/23 06/20/23 36,000-114,000-180,000 unit capsule,delay rel (Creon) viwybi-thbtgxwx-opglkzj 2 cap PO TID 06/20/23 06/20/23 36,000-114,000-180,000 unit capsule,delay rel (Creon) multivitamin with iron 1 tab PO DAILY 06/20/23 06/20/23 risedronate 150 mg tablet 150 mg PO QMONTH 06/20/23 06/20/23 triamterene 37.5 1 cap PO DAILY 06/20/23 06/20/23 mg-hydrochlorothiazide 25 mg capsule Previous Rx's ?Medication ?Instructions ?Recorded benzonatate 100 mg capsule 100 mg PO TID PRN Cough #20 caps 06/21/23 fluticasone propionate 50 1 spray intranasal BID #16 grams 06/21/23 mcg/actuation nasal spray,suspension oseltamivir 75 mg capsule (Tamiflu) 75 mg PO Q12H #6 caps 06/21/23 benzonatate 200 mg capsule 200 mg PO TID PRN cough #20 caps 06/22/24 apixaban 5 mg tablet 5 mg PO BID 30 days #60 tabs 10/20/24 Allergies Allergy/AdvReac Type Severity Reaction Status Date / Time codeine [CODEINE] Allergy Unknown NAUSEA & Verified 10/20/24 16:41 VOMITING Codeine Phosphate Allergy Unknown Vomiting Uncoded 10/20/24 16:41 Codeine Sulfate Allergy Unknown vomiting Uncoded 10/20/24 16:41 [facility] Past Medical History Medical History Collagenous colitis Tachyarrhythmia Social History Social History Household Members: None Housing: House Do you presently have visiting nurse or other home services: No Alcohol intake: current Alcohol intake frequency: a few times a week Patient Tobacco Use Status: Never used Tobacco e-Cigarette/Vaping Use: Never Used Second Hand Smoke Exposure: No service: No Physical Exam 2 Vital Signs: Vital Signs: Last Vital Signs Temp 98.1 F 10/20/24 21:20 Pulse 74 10/20/24 21:20 Resp 18 10/20/24 21:20 BP 138/76 10/20/24 21:20 Pulse Ox 99 10/20/24 21:20 O2 Del Method Room Air 10/20/24 21:20 BMI result Body Mass Index 23.4 Const: Other: EXAM: Gen: Alert, awake, well appearing, well hydrated. Head: Atraumatic Eyes: Anicteric, Normal conjunctiva. ENT: Moist mucosa, no pallor. ? Neck: Supple. Respiratory: Breathing comfortably, No distress.Clear to auscultation bilaterally, symmetric chest expansion, No wheeze, rales, ronchi. Cardiovascular: Regular rate and rhythm. No murmurs or rub. Well perfused periphery, warm extremities. No edema. ? Abdominal: Soft, no objective distension. No palpable masses or obvious organomegaly. No focal tenderness, no guarding, no rebound tenderness or other peritoneal findings. : No flank tenderness. Neuro: Alert. Gross movement of all extremities intact. ? Vital signs: See flowsheet Medications Administered Discontinued Medications Generic Name Dose Route Start Last Admin Trade Name Freq PRN Reason Stop Dose Admin Apixaban 5 mg 10/20/24 20:56 10/20/24 21:00 Apixaban 5 Mg Tablet PO 10/20/24 20:57 5 mg ONCE ONE Administration Sodium Chloride 1,000 mls @ 999 mls/hr 10/20/24 19:00 10/20/24 20:55 Ns IV 10/20/24 20:00 Infused .Q1H1M JACLYN Infusion Metoprolol Tartrate 5 mg/ 55 mls @ 230 mls/hr 10/20/24 20:16 10/20/24 21:20 Sodium Chloride IV 10/20/24 20:30 Infused ONCE ONE Infusion Protocol Medical Decision Making Medical Decision Making [facility] Narrative: 69-year-old female with palpitation malaise since nuclear stress test. AFib identified pretty convincingly on the patient's cardia device that I reviewed on the patient's phone. Intermittent spells of SVT and possibly also rapid AFib here in the ED. This would be new AFib. Chads Vasc score is 2. Shared decision-making risks benefits discussion of anticoagulation initiation given her stroke risk of 2.2% she is agreeable to this her sister who is a nurses at the bedside and agrees. No cardiac ischemia. Sodium 129 could be from thiazide or over free water intake. We discussed this and close follow up with PCP Differential Diagnosis Atrial fibrillation, SVT, reentry tachycardia, sinus tachycardia, PACs, dehydration Regarding hyponatremia: Euvolemic versus hypovolemic hyponatremia. Possibly secondary to triamterene. Could be secondary to polydipsia though this is less likely Lab Data [facility] Lab Attestation statement: I reviewed the patient's lab results. 10/20/24 16:57 10/20/24 16:57 Labs: Lab Results 10/20/24 Range/Units 16:57 WBC 7.2 (4.8-10.8) X10*3/uL RBC 3.96 L (4.20-5.50) X10*6/uL Hgb 12.9 (12.0-16.0) g/dl Hct 37.3 (37.0-47.0) % MCV 94.2 (80.0-98.0) fL MCH 32.6 (27.0-33.0) pg MCHC 34.6 (31.0-35.0) g/dl RDW 12.8 (11.0-16.0) % Plt Count 300 (160-400) X10*3/uL MPV 8.0 L (9.4-12.3) fL Immature Gran % (Auto) 0.3 (0.0-0.4) % Neut % (Auto) 64.2 (45-73) % Lymph % (Auto) 23.9 (20-40) % [place] % (Auto) 11.1 H (2-11) % Eos % (Auto) 0.1 (0-4) % Baso % (Auto) 0.4 (0-2) % Lymph # (Auto) 1.7 (1.2-4.9) X10*3/uL [place] # (Auto) 0.8 (0.1-1.2) X10*3/uL Eos # (Auto) 0.0 (0.0-0.4) X10*3/uL Baso # (Auto) 0.0 (0.0-0.2) X10*3/uL Abs Immat Gran (auto) 0.02 (0.00-0.03) X10*3/uL Absolute Neuts (auto) 4.6 (2.0-8.3) x10*3/uL Absolute Nucleated RBC 0.000 (0.0-0.012) X10*3/uL Nucleated RBC % (auto) 0.0 (0.0-0.2) /100WBC PT 10.8 L (10.9-12.4) SEC INR 0.9 (0.9-1.1) Sodium 129 L (135-145) mmol/L Potassium 3.9 (3.3-5.1) mmol/L Chloride 93 L (96-108) mmol/L Carbon Dioxide 25 (22-29) mmol/L Anion Gap 15 (12-20) BUN 12 (9-16) mg/dL Creatinine 0.66 (0.5-1.4) mg/dL Estim Creat Clear Calc 62.7 Estimated GFR > 60 Random Glucose 125 H (60-115) mg/dL Calcium 9.3 (8.4-10.2) mg/dL Magnesium 2.2 (1.6-2.6) mg/dL Total Bilirubin 0.3 (0.0-1.0) mg/dL AST 33 H (5-31) U/L ALT 34 H (0-31) U/L Alkaline Phosphatase 67 (39-117) U/L Troponin I High Sens 3.1 (<3.5-17.0) ng/L Total Protein 7.7 (6.5-8.0) g/dL Albumin 4.5 (3.5-5.0) g/dL Independent Interpretation I performed an independent interpretation of an: EKG Interpretation: Twelve lead ECG on arrival sinus rhythm no acute ischemic changes normal intervals. Rhythm strip analysis multiple events for tachycardia many of these appear to be regular possibly SVT with PACs. One or 2 of them suggestive of irregular tachycardia likely atrial fibrillation. External Record Review Reviewed the patient's cardiac rhythm strip on her phone suggestive of atrial fibrillation Discharge Plan Discharge Clinical Impression: Acute hyponatremia, Atrial fibrillation Patient Disposition: Home, Self-Care Instructions: A-fib (Atrial Fibrillation) (ED), Hyponatremia (ED) Additional Instructions: _ DISCHARGE DIAGNOSES: Atrial fibrillation intermittent likely new onset Low sodium level 129. HISTORY OF PRESENTATION: ?Generalized malaise and weakness and palpitations EMERGENCY DEPARTMENT COURSE,TESTS, TREATMENTS: While in the ED today you had blood work including electrolytes cardiac marker testing which has excluded heart attack or major electrolyte derangements other than mild low sodium at 01:29. You received 1 L of normal saline which is higher sodium concentration fluid this should correct this but you need this repeated in 1 week. Review of your manager cardiac cath and rhythm while here in the ED for approximately 4-1/2 hours on the monitor revealed of SVT as well as atrial fibrillation. We also reviewed your cardia rhythm on your phone which convinced me that you intermittent atrial fibrillation. We have started and given your 1st dose of blood thinner tonight as well as an IV dose of beta-tiffany metoprolol here DISCHARGE MEDICATIONS: Continue your normal regular daily medications except we recommend you stop triamterene until your sodium is repeated and initiate apixaban the blood thinner that we have started you can start this tomorrow morning we gave you your 1st dose in the ER FOLLOW-UP: ?Call your primary or general physician soon as possible to discuss your symptoms, your ED visit and to discuss follow up plans Call your primary doctor tell him we will not your sodium rechecked and you to be checked in the office in 1 week, call your director housekeeping tomorrow to let them know that we think you have new onset atrial fibrillation INSTRUCTIONS ?& RETURN PRECAUTIONS: If any symptoms change first call your primary physician, if it is after-hours your primary doctors office should have a provider lunchroom monitor you can speak with. If the symptoms are severe or very concerning to you then call 911 or return to the ED. [07] Mathieu Pillai MD Emergency Physician [facility] Prescriptions: New apixaban 5 mg tablet 5 mg PO BID 30 Days Qty: 60 0RF No Action benzonatate 200 mg capsule 200 mg PO TID PRN (Reason: cough) Qty: 20 0RF triamterene-hydrochlorothiazid 37.5-25 mg capsule 1 cap PO DAILY gabapentin 300 mg capsule 300 mg PO TID bimatoprost 0.03 % drops with applicator 1 drp TOPICAL BEDTIME Rx Instructions: APPLY TO AFFECTED UPPER EYELIDS Creon 36,000-114,000- 180,000 unit capsule,delayed release(DR/EC) 2 cap PO TID diltiazem HCl 120 mg capsule,extended release 24hr 120 mg PO DAILY fluoxetine 20 mg capsule 20 mg PO DAILY risedronate 150 mg tablet 150 mg PO QMONTH multivitamin with iron Tablet 1 tab PO DAILY Creon 36,000-114,000- 180,000 unit capsule,delayed release(DR/EC) 1 cap PO DAILY PRN (Reason: snacks) benzonatate 100 mg Capsule 100 mg PO TID PRN (Reason: Cough) Qty: 20 0RF oseltamivir [Tamiflu] 75 mg Capsule 75 mg PO Q12H Qty: 6 0RF fluticasone propionate 50 mcg/actuation [place],Suspension 1 spray intranasal BID Qty: 16 0RF Interventions: ED Discharge Assessment Last Done: 10/20/24 21:20 Discharge Date/Time: 10/20/24 21:33 Print Language: Grenadian
[2024-10-20] MEDS: 0.9 % Sodium Chloride 1,000 ML 999 ML IV (19:14)
[2024-10-20 20:53] VITALS: BP 138/76; PULSE 74; RESP 18; TEMP 36.7; O2SAT 99
[2024-10-20] MEDS: Apixaban 5 MG TABLET PO (21:00)
[2024-10-20] MEDS: Metoprolol Tartrate 5 MG in 0.9 % Sodium Chloride 50 ML 230 MG IV (21:00)
[2024-10-20 21:20] VITALS: BP 138/76; PULSE 74; RESP 18; TEMP 36.7; O2SAT 99
== END 2024-10-20 21:33 | disposition home or self-care (01) ==
PROVIDERS: Emergency Provider Emergency Medicine
DX: E87.1 Hypo-osmolality and hyponatremia (principal); I49.9 Cardiac arrhythmia, unspecified; I47.10 Supraventricular tachycardia, unspecified; I48.91 Unspecified atrial fibrillation; R06.02 Shortness of breath; R60.0 Localized edema; Z79.01 Long term (current) use of anticoagulants; Z79.899 Other long term (current) drug therapy
CPT/HCPCS: 36415; 71045; 80053; 83735; 84484; 85025; 85610; 93005; 96361; 96365; 99284; 99285

== ENCOUNTER → 2024-10-20 16:45 | Outpatient (BNV) | payer MEDICARE, OTHER, SELFPAY | PROVIDERS: Emergency Provider Emergency Medicine; Visit Provider Internal Medicine Cardiovascular Disease | DX: R00.2 Palpitations (principal) | CPT/HCPCS: 93010 ==

== ENCOUNTER → 2024-10-20 16:45 | Outpatient (BNV) | payer MEDICARE, OTHER, SELFPAY | PROVIDERS: Visit Provider Radiology Diagnostic Radiology | DX: R07.9 Chest pain, unspecified (principal) | CPT/HCPCS: 71045 ==